=== PATIENT | male | born 1980 | race Caucasian/White ===

== ENCOUNTER 2021-01-11 09:10 | Inpatient (IN) | payer BC ==
[~2021-01-11] VITALS: Ht 182.9 cm; Wt 73.1 kg
[2021-01-11] MEDS ORDERED: IV NORMAL SALINE 1000ML BAG 1,000 ML IV ONE ×2 (09:45→10:30)
[2021-01-11] MEDS ORDERED: PIPERACILLIN/TAZOBACTAM 3.375 GM in IV NORMAL SALINE 50ML 50 ML IV ONE (09:45)
[2021-01-11] MEDS ORDERED: methylPREDNISolone SOD SUCC PF 125 MG/2 ML VIAL. IV ONE (09:45)
[2021-01-11] MEDS ORDERED: ALBUTEROL SULFATE 2.5 MG/3 ML NEBU. CONT NEB ONE (09:45)
--- NOTE | 2021-01-11 09:47 | PHYS DOC ---
General Adult EDM: Chief Complaint: MULTIPLE COMPLAINTS HPI: HPI: Patient is a 40 year old male who presents with cough, generalized fatigue, shortness of breath, midsternal intermittent chest pain, fever, lack of appetite, nausea over the last week. Patient went to urgent care this morning and was only 76% on room air. Upon arrival to the ED we put 6 L of oxygen on him and he was 82%. Patient states he does not feel really short of breath but he does have some short of breath. At this time he rates his pain a 6 out of 10. Speaks in full clear sentences. States he was not vaccinated. Currently afebrile. Denies any past medical history. States he does not smoke. Is a full code. (RADHA KRUGER APRN) Review of Systems: Review of Systems: Constitutional: + fever or chills. [] Eyes: Denies change in visual acuity. [] HENT: Denies nasal congestion or sore throat. [] Respiratory: +cough or +shortness of breath. [] Cardiovascular: +chest pain or denies edema. [] GI: Denies abdominal pain, +nausea, denies vomiting, bloody stools or diarrhea. [] : Denies dysuria. [] Musculoskeletal: Denies back pain or joint pain. +Generalized fatigue [] Integument: Denies rash. [] Neurologic: + headache, denies focal weakness or sensory changes. [] Endocrine: Denies polyuria or polydipsia. [] Lymphatic: Denies swollen glands. [] Psychiatric: Denies depression or anxiety. [] (RADHA KRUGER APRN) Heart Score: C/O Chest Pain: Yes HEART Score for Chest Pain: HEART Score for Chest Pain Response (Comments) Value History Slighlty/Non-Suspicious 0 ECG Normal 0 Age < 45 0 Risk Factors No Risk Factors 0 Troponin < Normal Limit 0 Total 0 Risk Factors: Risk Factors: DM, Current or recent (<one month) smoker, HTN, HLP, family history of CAD, obesity. Risk Scores: Score 0 - 3: 2.5% MACE over next 6 weeks - Discharge Home Score 4 - 6: 20.3% MACE over next 6 weeks - Admit for Clinical Observation Score 7 - 10: 72.7% MACE over next 6 weeks - Early Invasive Strategies (RADHA KRUGER APRN) Current Medications: Current Medications Medications (Trade) Dose Ordered Sig/Dutch Start Time Stop Time Status Last Admin Dose Admin Albuterol Sulfate (Ventolin Neb Soln) 10 mg 1X ONCE 01/11/21 09:45 01/11/21 09:46 Methylprednisolone Sodium Succinate (SOLU-Medrol 125MG VIAL) 125 mg 1X ONCE 01/11/21 09:45 01/11/21 09:46 Piperacillin Sod/ Tazobactam Sod 3.375 gm/Sodium Chloride 50 ml @ 100 mls/hr 1X ONCE 01/11/21 09:45 01/11/21 10:14 Sodium Chloride 1,000 ml @ 1,000 mls/hr 1X ONCE 01/11/21 09:45 01/11/21 10:44 (RADHA KRUGER APRN) Allergies: Allergies: Allergies Coded Allergies Type Severity Reaction Last Updated Verified No Known Drug Allergies 01/11/21 No (RADHA KRUGER APRN) Physical Exam: PE: Constitutional: Well developed, well nourished, no acute distress, non-toxic appearance. [] HENT: Normocephalic, atraumatic, bilateral external ears normal, oropharynx moist, no oral exudates, nose normal. [] Eyes: PERRLA, EOMI, conjunctiva normal, no discharge. [] Neck: Normal range of motion, no tenderness, supple, no stridor. [] Cardiovascular:Heart rate regular rhythm, no murmur [] Lungs & Thorax: Bilateral upper breath sounds diminished and lower with coarse sounds to auscultation [] Abdomen: Bowel sounds normal, soft, no tenderness, no masses, no pulsatile masses. [] Skin: Warm, dry, no erythema, no rash. Pale[] Back: No tenderness, no CVA tenderness. [] Extremities: No tenderness, no cyanosis, no clubbing, ROM intact, no edema. [] Neurologic: Alert and oriented X 3, normal motor function, normal sensory function, no focal deficits noted. [] Psychologic: Affect normal, judgement normal, mood normal. [] (RADHA KRUGER APRN) EKG: EK and read by Dr. Dockery is sinus tachycardia and no STEMI (RADHA KRUGER APRN) Radiology/Procedures: Radiology/Procedures: [] Impression: [facility] [address] [facility] [place] [address] IMAGING REPORT Signed PATIENT: MARY HARDING ACCOUNT: [id number] : 1980 LOCATION: ER AGE: 40 SEX: M EXAM STATUS: REG ER ORD. PHYSICIAN: RADHA KRUGER APRN REASON: chest pain, low O2 PROCEDURE: PORTABLE CHEST 1V XR CHEST 1V History: Reason: chest pain, low O2 / Spl. Instructions: / History: Comparison: None. Findings: Multifocal ill-defined opacities bilaterally. Left lower lung peripheral wedge- shaped opacity. Slight prominence of the left hilum compared to the right may relate to enlarged pulmonary vasculature. No pleural effusion. No pneumothorax. Elevation of the left hemidiaphragm. Normal heart size. Impression: 1. Multifocal ill-defined opacities bilaterally, concerning for pneumonia including viral pneumonia. 2. Left lower lobe peripheral wedge-shaped opacity, may relate to above- mentioned pneumonia. If concern for pulmonary embolism and pulmonary infarct, CT angiogram can further assess. Electronically signed by: Sid Presley DO (01/11/2021 10:12 AM) [id number] DICTATED and SIGNED BY: SID PRESELY DO DATE: 01/11/21 [id number] [facility] [address] [facility] [place] [address] IMAGING REPORT Signed PATIENT: MARY HARDING ACCOUNT: [id number] : 1980 LOCATION: ED HOLD AGE: 40 SEX: M EXAM STATUS: ADM IN ORD. PHYSICIAN: RADHA KRUGER APRN REASON: abnormal chest xray PROCEDURE: CT ANGIOGRAPHY CHEST Examination: CT angiography chest with IV contrast HISTORY: History of abnormal chest x-ray COMPARISON: None available TECHNIQUE: Axial CT angiographic images of chest were performed with IV contrast. Coronal and sagittal 3-D MIP reformats are performed Exposure: One or more of the following individualized dose reduction techniques were utilized for this examination: 1. Automated exposure control 2. Adjustment of the mA and/or kV according to patient size 3. Use of iterative reconstruction technique FINDINGS: The central airways are patent. Heart size grossly appears unremarkable. The caliber of the aorta grossly appears unremarkable. There is no evidence of filling defect identified in the main pulmonary arterial trunk and right and left main pulmonary arteries. The evaluation of distal branches of the pulmonary arteries is limited. There are numerous groundglass focal consolidation and airspace opacities identified throughout the bilateral lungs diffusely likely infiltrates or covid /viral pneumonia. Mild elevated left hemidiaphragm. The visualized liver, spleen, adrenals grossly appears unremarkable. No evidence of lytic bony destructive lesion. IMPRESSION: 1. No evidence of central pulmonary embolism. The evaluation of distal branches of the pulmonary arteries is limited. 2. Numerous groundglass focal consolidation and airspace opacities identified throughout the bilateral lungs diffusely likely infiltrates or covid /viral pneumonia. Follow-up to resolution. Electronically signed by: Lester Zabala MD (01/11/2021 12:07 PM) [id number] DICTATED and SIGNED BY: LESTER ZABALA MD DATE: 01/11/21 [id number] (RADHA KRUGER APRN) Course & Med Decision Making: Course & Med Decision Making Pertinent Labs and Imaging studies reviewed. (See chart for details) See HPI. Patient has generalized diminished lungs bilaterally with intermittent coarse sounds. He is tachycardic at 119. I have called respiratory and they are here for breathing treatment and to start BiPAP. Skin is pale warm and dry. Alert and oriented x4. Speaks in full clear sentences. []COVID-19 CRITERIA: The patient was evaluated during the global COVID-19 pandemic, and that diagnosis was suspected/considered upon their initial presentation. Their evaluation, treatment and testing was consistent with curre nt guidelines for patients who present with complaints or symptoms that may be related to COVID-19. Patient is getting very anxious with the BiPAP on. Patient is 96% with a BiPAP on. Patient knows that if he cannot tolerate the BiPAP then he may need to be intubated. Patient also knows that either he will get better on the BiPAP or he will not and intubation is still a possibility. Patient agrees to intubation if needed. Patient is getting 2 L of normal saline, Zosyn, Solu-Medrol and I ordered breathing treatments. Patient admitted to hospitalist. I have ordered a CT for his chest. (RADHA KRUGER APRN) Course & Med Decision Making Took care of patient in conjunction with nurse practitioner Radha. Patient presents to the emergency room with respiratory failure. Upon arrival patient was significantly hypoxic. Patient was tried on a nonrebreather and remained hypoxic in the 80s. Patient was placed on BiPAP. He did have significant improvement. Patient does not have significant respiratory distress on exam. Presentation is most consistent with novel coronavirus 19. Patient is unvaccinated. He initially was having a difficult time tolerating the BiPAP. Patient was given Ativan for this. I have had a long discussion with the patient that he will need to wear the BiPAP machine and will likely need it for the next 24 to 48 hours. We have discussed that if he is unable to wear this then the next step is to place him on a ventilator. Patient states understanding and states he will try to wear the BiPAP mask. X-ray shows diffuse infiltrates with concern about a wedge infarct. CT angio will be done. CT angio does not show a pulmonary embolism or pulmonary infarct. Patient will be admitted to the ICU. (BG DOCKERY MD) Dragon Disclaimer: Vaccibody Disclaimer: This electronic medical record was generated, in whole or in part, using a voice recognition dictation system. (RADHA KRUGER APRN) COVID-19 Patient Risks: Age 65 or older: No Sign of co-morbidity: No Exp to person + for COVID: No Exp to PUI: No Travel from affected area: No Lower respiratory symptoms: Yes Fever: No Other: No (RADHA KRUGER APRN) PPE Use: Full PPE with N95 mask or PAPR: Yes (RADHA KRUGER APRN) Critical Care Time Critical Care: Authorized and Performed by: Bg Dockery MD Total critical care time: approximately 45 minutes Due to a high probability of clinically significant, life threatening deterio ration, the patient required my highest level of preparedness to intervene emergently and I personally spent this critical care time directly and personally managing the patient. This critical care time included obtaining a history; examining the patient; pulse oximetry; ventilator management if necessary; ordering and review of studies; arranging urgent treatment with development of a management plan; evaluation of patient's response to treatment; frequent reassessment; discussion with patient/family; and, discussions with other providers. This critical care time was performed to assess and manage the high probability of imminent, life-threatening deterioration that could result in multi-organ failure. It was exclusive of separately billable procedures and treating other patients and teaching time. Please see MDM section and the rest of the note for further information on patient assessment and treatment. (BG DOCKERY MD) Departure Departure Impression: Primary Impression: Pneumonia Qualified Codes: J18.9 - Pneumonia, unspecified organism Additional Impressions: Person under investigation for COVID-19 Hypoxia Disposition: ADMITTED INPATIENT Admitting Physician: PETER (ARDHA KRUGER APRN) Condition: STABLE RADHA KRUGER APRN Jan 11, 2021 09:47 BG DOCKERY MD Jan 11, 2021 14:33
[2021-01-11 10:07] LABS: BASO % 0 % (0-3); EOS % 0 % (0-3); HEMATOCRIT 42.3 % (39.0-53.0); HEMOGLOBIN 14.8 g/dL (13.0-17.5); LYMPH # 0.5 x10^3/uL (1.0-4.8); LYMPH % 14 % (24-48); MEAN CORPUSCULAR HEMOGLOBIN 32 pg (25-35); MEAN CORPUSCULAR HGB CONC 35 g/dL (31-37); MEAN CORPUSCULAR VOLUME 92 fL (79-100); MONO # 0.3 x10^3/uL (0.0-1.1); MONO % 7 % (0-9); NEUT # 3.1 x10^3/uL (1.8-7.7); NEUT % 79 % (31-73); PLATELET COUNT 220 x10^3/uL (140-400); RED CELL DISTRIBUTION WIDTH 12.6 % (11.5-14.5)
[2021-01-11 10:14] LABS: CALCIUM 9.1 mg/dL (8.5-10.1); CREATININE 0.6 mg/dL (0.7-1.3)
--- NOTE | 2021-01-11 10:14 | RAD ---
XR CHEST 1V History: Reason: chest pain, low O2 / Spl. Instructions: / History: Comparison: None. Findings: Multifocal ill-defined opacities bilaterally. Left lower lung peripheral wedge-shaped opacity. Slight prominence of the left hilum compared to the right may relate to enlarged pulmonary vasculature. No pleural effusion. No pneumothorax. Elevation of the left hemidiaphragm. Normal heart size. Impression: 1. Multifocal ill-defined opacities bilaterally, concerning for pneumonia including viral pneumonia. 2. Left lower lobe peripheral wedge-shaped opacity, may relate to above-mentioned pneumonia. If conc shayne for pulmonary embolism and pulmonary infarct, CT angiogram can further assess. Electronically signed by: Sid Pierre DO (01/11/2021 10:12 AM) [id number]
[2021-01-11 10:20] LABS: ALBUMIN 2.7 g/dL (3.4-5.0); ALBUMIN/GLOBULIN RATIO 0.6 (1.0-1.7); TOTAL BILIRUBIN 0.5 mg/dL (0.2-1.0); TOTAL PROTEIN 7.3 g/dL (6.4-8.2)
[2021-01-11 10:21] LABS: POTASSIUM 4.3 mmol/L (3.5-5.1)
--- NOTE | 2021-01-11 10:28 | EKG ---
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
[2021-01-11] MEDS ORDERED: IOHEXOL 350 MG/ML 100 ML VIAL. IV ONE ×2 (10:30→10:45)
[2021-01-11] MEDS ORDERED: CONTRAST GIVEN. MC PRN (10:30)
[2021-01-11] MEDS ORDERED: 0.9 % SODIUM CHLORIDE 10 ML DISP.SYRIN. IV PRN (10:45)
[2021-01-11] MEDS ORDERED: DEXTROSE 50% 25 GM / 50ML DISP.SYRIN. IV PRN (10:45)
[2021-01-11] MEDS ORDERED: ONDANSETRON PF 4 MG/2 ML VIAL. IVP PRN (10:45)
[2021-01-11] MEDS ORDERED: oxyCODONE IR 5 MG TABLET PO PRN (10:45)
[2021-01-11 11:55] LABS: PROTHROMBIN TIME PATIENT 12.2 SEC (11.7-14.0)
[2021-01-11] MEDS: INSULIN LISPRO 300 UNITS/3 ML VIAL. SQ SCH ×2 (12:00→17:26)
--- NOTE | 2021-01-11 12:09 | RAD ---
Examination: CT angiography chest with IV contrast HISTORY: History of abnormal chest x-ray COMPARISON: None available TECHNIQUE: Axial CT angiographic images of chest were performed with IV contrast. Coronal and sagitta l 3-D MIP reformats are performed Exposure: One or more of the following individualized dose reduction techniques were utilized for thi s examination: 1. Automated exposure control 2. Adjustment of the mA and/or kV according to patient size 3. Use of iterative reconstruction technique FINDINGS: The central airways are patent. Heart size grossly appears unremarkable. The caliber of the aorta vidal ssly appears unremarkable. There is no evidence of filling defect identified in the main pulmonary ar terial trunk and right and left main pulmonary arteries. The evaluation of distal branches of the pul monary arteries is limited. There are numerous groundglass focal consolidation and airspace opacities identified throughout the bilateral lungs diffusely likely infiltrates or covid /viral pneumonia. Mi ld elevated left hemidiaphragm. The visualized liver, spleen, adrenals grossly appears unremarkable. No evidence of lytic bony destructive lesion. IMPRESSION: 1. No evidence of central pulmonary embolism. The evaluation of distal branches of the pulmonary art eries is limited. 2. Numerous groundglass focal consolidation and airspace opacities identified throughout the bilater al lungs diffusely likely infiltrates or covid /viral pneumonia. Follow-up to resolution. Electronically signed by: Lester Cooley MD (01/11/2021 12:07 PM) [id number]
[2021-01-11 12:54] LABS: BASE EXCESS COOX -3 mmol/L (-3-3); HCO3 COOX 21 mmol/L (21-28); METHEMOGLOBIN 0.5 % (0.0-1.9); OXYHEMOGLOBIN 93.1 %; PCO2 COOX 36 mmHg (35-46); PO2 COOX 73 mmHg (75-108); SAT O2 COOX 94 % (92-99)
[2021-01-11 14:14] LABS: BILIRUBIN,URINE NEGATIVE (NEG); CLARITY,URINE CLEAR; COLOR,URINE YELLOW; NITRITE,URINE NEGATIVE (NEG); PH,URINE 5.5 (<5.0-8.0); PROTEIN,URINE 30 mg/dL (NEG-TRACE); UROBILINOGEN,URINE 0.2 mg/dL (0.2 mg/dL)
[2021-01-11 14:23] LABS: BACTERIA,URINE 0 /HPF (0-FEW); RBC,URINE 0 /HPF (0-2); WBC,URINE 0 /HPF (0-4)
[2021-01-11] MEDS: IV NORMAL SALINE 1000ML BAG 1,000 ML IV SCH ×2 (14:25→17:25)
--- NOTE | 2021-01-11 14:40 | PDOC1 ---
History and Physical Date of Service: DOS: DATE: 01/11/21 TIME: 14:25 Chief Complaint: Problems: (1) Pneumonia due to COVID-19 virus (2) Hypoxia (3) Pneumonia Chief Complain: Shortness of breath, cough, fatigue, decreased appetite History of Present Illness: HPI: Patient is a 40-year-old male without any reported past medical history presented to the emergency room today from urgent care where he was found to have an oxygen saturation of 76% on room air there. Patient went to urgent care because over the past week he had been having a cough, overall fatigue and weakness, dyspnea with exertion, intermittent chest pain, fevers, decreased p.o. intake. Patient denied any sick contacts. He is not a smoker. He did not receive the Covid vaccine. Upon arrival to the emergency room he was placed on 6 L of oxygen and saturations increased to 82%. Nonrebreather was tried however this did not really increase his oxygen saturations and by the time I went to evaluate him he was on continuous BiPAP with saturations in the low 90s. Patient admitting to ICU due to concern for respiratory status given Covid infection and possible need for mechanical ventilation. When evaluated in the emergency room patient was able to gesture that he was feeling somewhat better however was still having shortness of breath and cough. He was also reporting headache. Otherwise no major complaints. Past Medical/Surgical History: PMH/PSH: Patient denies any past medical history Allergies: Allergies: Coded Allergies: No Known Drug Allergies (Unverified , 01/11/21) Family History: Family History: Unknown Social History: Social History: Denies alcohol tobacco and drug use Current Medications: Current Medications Current Medications Methylprednisolone Sodium Succinate (SOLU-Medrol 125MG VIAL) 125 mg 1X ONCE IV Last administered on 01/11/21at 09:56; Start 01/11/21 at 09:45; Stop 01/11/21 at 09:46; Status DC Albuterol Sulfate (Ventolin Neb Soln) 10 mg 1X ONCE CONT NEB ; Start 01/11/21 at 09:45; Stop 01/11/21 at 09:46; Status DC Piperacillin Sod/ Tazobactam Sod 3.375 gm/Sodium Chloride 50 ml @ 100 mls/hr 1X ONCE IV Last administered on 01/11/21at 09:56; Start 01/11/21 at 09:45; Stop 01/11/21 at 10:14; Status DC Sodium Chloride 1,000 ml @ 1,000 mls/hr 1X ONCE IV Last administered on 01/11/21at 09:56; Start 01/11/21 at 09:45; Stop 01/11/21 at 10:44; Status DC Lorazepam (Ativan Inj) 1 mg 1X ONCE IVP Last administered on 01/11/21at 10:32; Start 01/11/21 at 10:15; Stop 01/11/21 at 10:19; Status DC Sodium Chloride 1,000 ml @ 1,000 mls/hr 1X ONCE IV Last administered on 01/11/21at 10:32; Start 01/11/21 at 10:30; Stop 01/11/21 at 11:29; Status DC Iohexol (Omnipaque 350 Mg/ml) 100 ml 1X ONCE IV Last administered on 01/11/21at 10:30; Start 01/11/21 at 10:30; Stop 01/11/21 at 10:31; Status DC Info (CONTRAST GIVEN -- Rx MONITORING) 1 each PRN DAILY PRN MC SEE COMMENTS; Start 01/11/21 at 10:30; Stop 01/13/21 at 10:29 Oxycodone HCl (Roxicodone) 5 mg PRN Q3HRS PRN PO BREAKTHRU PAIN; Start 01/11/21 at 10:45 Lorazepam (Ativan Inj) 0.5 mg PRN Q6HRS PRN IVP ANXIETY / AGITATION; Start 01/11/21 at 10:45 Ondansetron HCl (Zofran) 4 mg PRN Q6HRS PRN IVP NAUSEA/VOMITING; Start 01/11/21 at 10:45 Famotidine (Pepcid) 20 mg BID PO ; Start 01/11/21 at 21:00 Info (Icu Electrolyte Protocol) 1 ea DAILY MC ; Start 01/12/21 at 09:00 Enoxaparin Sodium (Lovenox 40mg Syringe) 40 mg Q24H SQ ; Start 01/11/21 at 16:00 Sodium Chloride (Normal Saline Flush) 3 ml QSHIFT PRN IV AFTER MEDS AND BLOOD DRAWS; Start 01/11/21 at 10:45 Sodium Chloride 1,000 ml @ 125 mls/hr Q8H IV ; Start 01/11/21 at 10:45 Oxycodone/ Acetaminophen (Percocet 5/325) 1 tab PRN Q4HRS PRN PO PAIN, 1ST CHOICE; Start 01/11/21 at 10:45 Morphine Sulfate (Morphine Sulfate) 1 mg PRN Q1HR PRN IV PAIN; Start 01/11/21 at 10:45 Senna/Docusate Sodium (Senna Plus) 1 tab BID PO ; Start 01/11/21 at 21:00 Insulin Human Lispro (HumaLOG) 0-7 UNITS TIDWMEALS SQ ; Start 01/11/21 at 12:00 Dextrose (Dextrose 50%-Water Syringe) 12.5 gm PRN Q15MIN PRN IV SEE COMMENTS; Start 01/11/21 at 10:45 Iohexol (Omnipaque 350 Mg/ml) 90 ml 1X ONCE IV ; Start 01/11/21 at 10:45; Stop 01/11/21 at 10:46; Status DC Dexamethasone Sodium Phosphate (Decadron) 6 mg DAILY IVP ; Start 01/12/21 at 09:00; Stop 01/22/21 at 08:59 ROS: Review of Systems Review of System Negative unless in HPI Physical Exam: Vital Signs: Vital Signs Date Time Temp Pulse Resp B/P (MAP) Pulse Ox O2 Delivery O2 Flow Rate FiO2 01/11/21 11:18 95 BiPAP/CPAP 01/11/21 09:19 97.5 116 22 149/89 97.5 Physcial Exam: GEN: On BiPAP, appears anxious, alert and oriented however HEENT: Normal cephalic, atraumatic, external auditory canals are patent EYES: Extraocular muscles are intact MUSCULOSKELETAL: Well developed , well nourished, good range of motion ENDOCRINE: No thyromegaly was palpated LYMPHATICS: No cervical chain or axillary nodes were noted HEMATOPOIETIC: No bruising NECK: Supple, no JVD, no thyromegaly was noted LUNGS: Coarse breath sounds present throughout; on BiPAP with respirations somewhat labored HEART: RRR, S1, S2 present. Peripheral pulses intact, no obvious murmurs noted ABDOMEN: Soft, nontender. Positive bowel sounds, no organomegaly, normal bowel sounds EXTREMITIES: Without clubbing, cyanosis, or edema. Pedal pulses intact. NEUROLOGIC: Normal speech and tone. A&O x 3, moves all extremities, no obvious focal deficits PSYCHIATRIC: Normal affect, normal mood. Stable SKIN: No ulcerations or rashes, good skin turgor, no jaundice VASCULAR: Good capillary refill, neurovascular bundle appears to be intact Labs: Labs: Laboratory Tests Test 01/11/21 09:31 01/11/21 09:41 01/11/21 09:47 01/11/21 11:41 O2 Saturation 94 % (92-99) Arterial Blood pH 7.39 (7.35-7.45) Arterial Blood pCO2 at Patient Temp 36 mmHg (35-46) Arterial Blood pO2 at Patient Temp 73 mmHg (75-108) Arterial Blood HCO3 21 mmol/L (21-28) Arterial Blood Base Excess -3 mmol/L (-3-3) Oxyhemoglobin 93.1 % Methemoglobin 0.5 % (0.0-1.9) Carbon Monoxide, Quantitative 0.0 % (0.0-1.9) FiO2 80% bipap SARS-CoV-2 RNA (THERESE) Positive (Negative) White Blood Count 4.0 x10^3/uL (4.0-11.0) Red Blood Count 4.60 x10^6/uL (4.30-5.70) Hemoglobin 14.8 g/dL (13.0-17.5) Hematocrit 42.3 % (39.0-53.0) Mean Corpuscular Volume 92 fL (79-100) Mean Corpuscular Hemoglobin 32 pg (25-35) Mean Corpuscular Hemoglobin Concent 35 g/dL (31-37) Red Cell Distribution Width 12.6 % (11.5-14.5) Platelet Count 220 x10^3/uL (140-400) Neutrophils (%) (Auto) 79 % (31-73) Lymphocytes (%) (Auto) 14 % (24-48) Monocytes (%) (Auto) 7 % (0-9) Eosinophils (%) (Auto) 0 % (0-3) Basophils (%) (Auto) 0 % (0-3) Neutrophils # (Auto) 3.1 x10^3/uL (1.8-7.7) Lymphocytes # (Auto) 0.5 x10^3/uL (1.0-4.8) Monocytes # (Auto) 0.3 x10^3/uL (0.0-1.1) Eosinophils # (Auto) 0.0 x10^3/uL (0.0-0.7) Basophils # (Auto) 0.0 x10^3/uL (0.0-0.2) Sodium Level 129 mmol/L (136-145) Potassium Level 4.3 mmol/L (3.5-5.1) Chloride Level 93 mmol/L (98-107) Carbon Dioxide Level 23 mmol/L (21-32) Anion Gap 13 (6-14) Blood Urea Nitrogen 9 mg/dL (8-26) Creatinine 0.6 mg/dL (0.7-1.3) Estimated GFR (Cockcroft-Gault) 150.0 BUN/Creatinine Ratio 15 (6-20) Glucose Level 394 mg/dL (70-99) Lactic Acid Level 1.2 mmol/L (0.4-2.0) Calcium Level 9.1 mg/dL (8.5-10.1) Total Bilirubin 0.5 mg/dL (0.2-1.0) Aspartate Amino Transf (AST/SGOT) 44 U/L (15-37) Alanine Aminotransferase (ALT/SGPT) 34 U/L (16-63) Alkaline Phosphatase 75 U/L (46-116) Troponin I Quantitative < 0.017 ng/mL (0.000-0.055) KX-Wae-E-Type Natriuretic Peptide 42 pg/mL (0-124) Total Protein 7.3 g/dL (6.4-8.2) Albumin 2.7 g/dL (3.4-5.0) Albumin/Globulin Ratio 0.6 (1.0-1.7) Prothrombin Time 12.2 SEC (11.7-14.0) Prothromb Time International Ratio 0.9 (0.8-1.1) Test 01/11/21 13:45 Urine Collection Type Void Urine Color Yellow Urine Clarity Clear Urine pH 5.5 (<5.0-8.0) Urine Specific [place] >=1.030 (1.000-1.030) Urine Protein 30 mg/dL (NEG-TRACE) Urine Glucose (UA) >=1000 mg/dL (NEG) Urine Ketones (Stick) >=80 mg/dL (NEG) Urine Blood Negative (NEG) Urine Nitrite Negative (NEG) Urine Bilirubin Negative (NEG) Urine Urobilinogen Dipstick 0.2 mg/dL (0.2 mg/dL) Urine Leukocyte Esterase Negative (NEG) Urine RBC 0 /HPF (0-2) Urine WBC 0 /HPF (0-4) Urine Squamous Epithelial Cells Occ /LPF Urine Bacteria 0 /HPF (0-FEW) Laboratory Tests Test 01/11/21 09:31 01/11/21 09:41 01/11/21 09:47 01/11/21 11:41 O2 Saturation 94 % (92-99) Arterial Blood pH 7.39 (7.35-7.45) Arterial Blood pCO2 at Patient Temp 36 mmHg (35-46) Arterial Blood pO2 at Patient Temp 73 mmHg (75-108) Arterial Blood HCO3 21 mmol/L (21-28) Arterial Blood Base Excess -3 mmol/L (-3-3) Oxyhemoglobin 93.1 % Methemoglobin 0.5 % (0.0-1.9) Carbon Monoxide, Quantitative 0.0 % (0.0-1.9) FiO2 80% bipap SARS-CoV-2 RNA (THERESE) Positive (Negative) White Blood Count 4.0 x10^3/uL (4.0-11.0) Red Blood Count 4.60 x10^6/uL (4.30-5.70) Hemoglobin 14.8 g/dL (13.0-17.5) Hematocrit 42.3 % (39.0-53.0) Mean Corpuscular Volume 92 fL (79-100) Mean Corpuscular Hemoglobin 32 pg (25-35) Mean Corpuscular Hemoglobin Concent 35 g/dL (31-37) Red Cell Distribution Width 12.6 % (11.5-14.5) Platelet Count 220 x10^3/uL (140-400) Neutrophils (%) (Auto) 79 % (31-73) Lymphocytes (%) (Auto) 14 % (24-48) Monocytes (%) (Auto) 7 % (0-9) Eosinophils (%) (Auto) 0 % (0-3) Basophils (%) (Auto) 0 % (0-3) Neutrophils # (Auto) 3.1 x10^3/uL (1.8-7.7) Lymphocytes # (Auto) 0.5 x10^3/uL (1.0-4.8) Monocytes # (Auto) 0.3 x10^3/uL (0.0-1.1) Eosinophils # (Auto) 0.0 x10^3/uL (0.0-0.7) Basophils # (Auto) 0.0 x10^3/uL (0.0-0.2) Sodium Level 129 mmol/L (136-145) Potassium Level 4.3 mmol/L (3.5-5.1) Chloride Level 93 mmol/L (98-107) Carbon Dioxide Level 23 mmol/L (21-32) Anion Gap 13 (6-14) Blood Urea Nitrogen 9 mg/dL (8-26) Creatinine 0.6 mg/dL (0.7-1.3) Estimated GFR (Cockcroft-Gault) 150.0 BUN/Creatinine Ratio 15 (6-20) Glucose Level 394 mg/dL (70-99) Lactic Acid Level 1.2 mmol/L (0.4-2.0) Calcium Level 9.1 mg/dL (8.5-10.1) Total Bilirubin 0.5 mg/dL (0.2-1.0) Aspartate Amino Transf (AST/SGOT) 44 U/L (15-37) Alanine Aminotransferase (ALT/SGPT) 34 U/L (16-63) Alkaline Phosphatase 75 U/L (46-116) Troponin I Quantitative < 0.017 ng/mL (0.000-0.055) HH-Aml-R-Type Natriuretic Peptide 42 pg/mL (0-124) Total Protein 7.3 g/dL (6.4-8.2) Albumin 2.7 g/dL (3.4-5.0) Albumin/Globulin Ratio 0.6 (1.0-1.7) Prothrombin Time 12.2 SEC (11.7-14.0) Prothromb Time International Ratio 0.9 (0.8-1.1) Test 01/11/21 13:45 Urine Collection Type Void Urine Color Yellow Urine Clarity Clear Urine pH 5.5 (<5.0-8.0) Urine Specific [place] >=1.030 (1.000-1.030) Urine Protein 30 mg/dL (NEG-TRACE) Urine Glucose (UA) >=1000 mg/dL (NEG) Urine Ketones (Stick) >=80 mg/dL (NEG) Urine Blood Negative (NEG) Urine Nitrite Negative (NEG) Urine Bilirubin Negative (NEG) Urine Urobilinogen Dipstick 0.2 mg/dL (0.2 mg/dL) Urine Leukocyte Esterase Negative (NEG) Urine RBC 0 /HPF (0-2) Urine WBC 0 /HPF (0-4) Urine Squamous Epithelial Cells Occ /LPF Urine Bacteria 0 /HPF (0-FEW) Assessment/Plan Assessment/Plan Patient is a 40-year-old white male presenting today with his breath cough fatigue found to be positive for COVID-19. Acute hypoxic respiratory failure secondary to COVID-19 pneumonia, hyperglycemia -1 week history of worsening respiratory status and fatigue -Did not receive Covid vaccine -Presents to urgent care this morning where her O2 sats found to be 75%; was sent to the emergency room here -Covid test here positive -Imaging including CTA of the chest consistent with Covid pneumonia -Inhaler as needed; started on Decadron and remdesivir -We will await pulmonary input regarding antibiotics -Patient hyperglycemic on admission will give sliding scale insulin; patient denies a history of type 2 diabetes -No other home meds required to be restarted Justifications for Admission Other Justification ELIJAH BECERRA MD Jan 11, 2021 14:40
[2021-01-11] MEDS ORDERED: REMDESIVIR LOAD in IV NORMAL SALINE 250ML TV IV ONE (15:00)
[2021-01-11] MEDS: ENOXAPARIN 40 MG/0.4 ML SYRINGE. SQ SCH (17:25)
--- NOTE | 2021-01-11 17:48 | NUR ---
The patient, MARY HARDING, 40 y/o, M admitted by ELIJAH BECERRA MD, was given written information regarding hospital policies, unit procedures and contact persons. Valuables were checked and left in patient room.
[2021-01-11 17:58] VITALS: BP 130/77
[2021-01-11 18:33] VITALS: BP 128/81
--- NOTE | 2021-01-11 18:36 | NUR ---
Dr. Jose notified of admission and consult. Reviewed current orders and no new orders at this time.
[2021-01-11 20:00] VITALS: BP 126/80
[2021-01-11] MEDS: SENNOSIDES/DOCUSATE 8.6/50MG TABLET. PO SCH (20:48)
[2021-01-11] MEDS: FAMOTIDINE 20 MG TABLET. PO SCH (20:48)
[2021-01-11 21:00] VITALS: BP 122/81
[2021-01-11 22:00] VITALS: BP 134/84
[2021-01-11 23:00] VITALS: BP 124/72
[2021-01-12] VITALS (24 sets, daily range): BP systolic 108–142; BP diastolic 62–84
[2021-01-12] MEDS: IV NORMAL SALINE 1000ML BAG 1,000 ML IV SCH ×3 (00:32→21:04)
--- NOTE | 2021-01-12 01:04 | CONS ---
DATE OF CONSULTATION: 01/11/2021 PULMONARY CONSULTATION ATTENDING PHYSICIAN: Fan Katz MD. REASON FOR CONSULTATION: Respiratory failure, COVID-19 pneumonia. HISTORY OF PRESENT ILLNESS: The patient is a 40-year-old male with a BMI of 21.9. He has no history of tobacco use and no chronic medical conditions. The patient was brought into urgent care when he was found to have an oxygen saturation of 76% on room air. He has not been feeling well over the last 1 week. He has a cough, overall fatigue, and weakness and dyspnea with exertion along with intermittent chest pain and fevers. The patient states he was exposed to someone who was COVID positive. The patient did not receive COVID vaccine. In the Emergency Room, he was initially placed on 6 liters of oxygen and saturations increased up to 82%. He was placed on a nonrebreather mask and then eventually switched to Vapotherm. Currently, he is on Vapotherm at 80% FIO2 and 25 liters. He appears to be comfortable, in no obvious respiratory distress. I did consultation via telemedicine. PAST MEDICAL HISTORY: Significant for no chronic medical conditions. PAST SURGICAL HISTORY: No recent surgeries. ALLERGIES: None. SOCIAL HISTORY: Denies tobacco or alcohol use. IMMUNIZATION STATUS: He is unvaccinated with COVID. MEDICATIONS: Reviewed as listed in the MRAD. REVIEW OF SYSTEMS: As discussed in my history of present illness, otherwise noncontributory. PHYSICAL EXAMINATION: VITAL SIGNS: Reviewed. His pulse ox is 91-92% on current Vapotherm at 80% FIO2. He is afebrile. GENERAL: He does not appear to be in any obvious respiratory distress while talking to me via telemedicine. EXTREMITIES: No leg edema. No paradoxical breathing. LABORATORY DATA: Reviewed. His ABG showed a pH of 7.39, pCO2 of 36 and a pO2 of 73 on 80% FiO2 with BiPAP. His BUN 9, creatinine 0.6. Albumin 2.7. COVID is positive. INR 0.9. White cell count 4.0, hemoglobin 14.8 and platelets 220. IMPRESSION: 1. Acute hypoxic respiratory failure secondary to COVID-19 pneumonia, acute lung injury in early acute respiratory distress syndrome. 2. Abnormal chest x-ray with diffuse bilateral infiltrates consistent with COVID-19 pneumonia. 3. CTA chest with no evidence of pulmonary embolism. However, there are bilateral infiltrates consistent with viral pneumonia. 4. No significant tobacco history. 5. Unvaccinated for COVID-19. RECOMMENDATIONS: 1. Continue with present Vapotherm at 80% FIO2 and 25 liters. 2. We will follow ABGs and oxygen saturations and make further decisions. 3. Remdesivir is initiated. 4. Continue dexamethasone. 5. Continue nebulizer. 6. Lovenox for DVT prophylaxis. 7. Discussed with the patient and RN. Critical care time 30 minutes including review of the chart, imaging studies, and decision making. ISAIAS DR: Aki TID: [id number]
[2021-01-12] MEDS: STERILE WATER for RESP 1,000 ML BAG. INH PRN ×2 (04:13→16:39)
[2021-01-12] MEDS: SENNOSIDES/DOCUSATE 8.6/50MG TABLET. PO SCH ×2 (08:02→21:04)
[2021-01-12] MEDS: FAMOTIDINE 20 MG TABLET. PO SCH ×2 (08:02→21:04)
[2021-01-12] MEDS: DEXAMETHASONE SOD PHOS 4 MG/ML VIAL IVP SCH (08:05)
[2021-01-12] MEDS: INSULIN LISPRO 300 UNITS/3 ML VIAL. SQ SCH ×4 (08:16→18:18)
[2021-01-12] MEDS: ELECTROLYTE (ICU) PROTOCOL. MC SCH (08:20)
--- NOTE | 2021-01-12 11:18 | PDOC ---
PULMONARY PROGRESS NOTES DATE: 01/12/21 TIME: 11:14 Subjective Patient remains on Vapotherm 25 L and 80% Afebrile NO Overnight concerns from nursing Vitals Vital Signs Date Time Temp Pulse Resp B/P (MAP) Pulse Ox O2 Delivery O2 Flow Rate FiO2 01/12/21 11:03 92 VAPOTHERM 25.0 01/12/21 10:00 101 33 136/81 (99) 01/12/21 08:00 98.4 98.4 Comments Patient seen during ID pandemic, visual exam performed Regular rate and rhythm No distress No obvious rash or edema NO Accessory muscle use General: Alert, Oriented X4 Labs Laboratory Tests Test 01/11/21 09:31 01/11/21 09:41 01/11/21 09:47 01/11/21 11:41 O2 Saturation 94 % (92-99) Arterial Blood pH 7.39 (7.35-7.45) Arterial Blood pCO2 at Patient Temp 36 mmHg (35-46) Arterial Blood pO2 at Patient Temp 73 mmHg (75-108) Arterial Blood HCO3 21 mmol/L (21-28) Arterial Blood Base Excess -3 mmol/L (-3-3) Oxyhemoglobin 93.1 % Methemoglobin 0.5 % (0.0-1.9) Carbon Monoxide, Quantitative 0.0 % (0.0-1.9) FiO2 80% bipap SARS-CoV-2 RNA (THERESE) Positive (Negative) White Blood Count 4.0 x10^3/uL (4.0-11.0) Red Blood Count 4.60 x10^6/uL (4.30-5.70) Hemoglobin 14.8 g/dL (13.0-17.5) Hematocrit 42.3 % (39.0-53.0) Mean Corpuscular Volume 92 fL (79-100) Mean Corpuscular Hemoglobin 32 pg (25-35) Mean Corpuscular Hemoglobin Concent 35 g/dL (31-37) Red Cell Distribution Width 12.6 % (11.5-14.5) Platelet Count 220 x10^3/uL (140-400) Neutrophils (%) (Auto) 79 % (31-73) Lymphocytes (%) (Auto) 14 % (24-48) Monocytes (%) (Auto) 7 % (0-9) Eosinophils (%) (Auto) 0 % (0-3) Basophils (%) (Auto) 0 % (0-3) Neutrophils # (Auto) 3.1 x10^3/uL (1.8-7.7) Lymphocytes # (Auto) 0.5 x10^3/uL (1.0-4.8) Monocytes # (Auto) 0.3 x10^3/uL (0.0-1.1) Eosinophils # (Auto) 0.0 x10^3/uL (0.0-0.7) Basophils # (Auto) 0.0 x10^3/uL (0.0-0.2) Sodium Level 129 mmol/L (136-145) Potassium Level 4.3 mmol/L (3.5-5.1) Chloride Level 93 mmol/L (98-107) Carbon Dioxide Level 23 mmol/L (21-32) Anion Gap 13 (6-14) Blood Urea Nitrogen 9 mg/dL (8-26) Creatinine 0.6 mg/dL (0.7-1.3) Estimated GFR (Cockcroft-Gault) 150.0 BUN/Creatinine Ratio 15 (6-20) Glucose Level 394 mg/dL (70-99) Lactic Acid Level 1.2 mmol/L (0.4-2.0) Calcium Level 9.1 mg/dL (8.5-10.1) Total Bilirubin 0.5 mg/dL (0.2-1.0) Aspartate Amino Transf (AST/SGOT) 44 U/L (15-37) Alanine Aminotransferase (ALT/SGPT) 34 U/L (16-63) Alkaline Phosphatase 75 U/L (46-116) Troponin I Quantitative < 0.017 ng/mL (0.000-0.055) BL-Cfk-C-Type Natriuretic Peptide 42 pg/mL (0-124) Total Protein 7.3 g/dL (6.4-8.2) Albumin 2.7 g/dL (3.4-5.0) Albumin/Globulin Ratio 0.6 (1.0-1.7) Prothrombin Time 12.2 SEC (11.7-14.0) Prothromb Time International Ratio 0.9 (0.8-1.1) Test 01/11/21 13:45 01/11/21 14:25 01/11/21 17:00 Urine Collection Type Void Urine Color Yellow Urine Clarity Clear Urine pH 5.5 (<5.0-8.0) Urine Specific [place] >=1.030 (1.000-1.030) Urine Protein 30 mg/dL (NEG-TRACE) Urine Glucose (UA) >=1000 mg/dL (NEG) Urine Ketones (Stick) >=80 mg/dL (NEG) Urine Blood Negative (NEG) Urine Nitrite Negative (NEG) Urine Bilirubin Negative (NEG) Urine Urobilinogen Dipstick 0.2 mg/dL (0.2 mg/dL) Urine Leukocyte Esterase Negative (NEG) Urine RBC 0 /HPF (0-2) Urine WBC 0 /HPF (0-4) Urine Squamous Epithelial Cells Occ /LPF Urine Bacteria 0 /HPF (0-FEW) Glucose (Fingerstick) 330 mg/dL (70-99) 342 mg/dL (70-99) Laboratory Tests Test 01/11/21 11:41 01/11/21 13:45 01/11/21 14:25 01/11/21 17:00 Prothrombin Time 12.2 SEC (11.7-14.0) Prothromb Time International Ratio 0.9 (0.8-1.1) Urine Collection Type Void Urine Color Yellow Urine Clarity Clear Urine pH 5.5 (<5.0-8.0) Urine Specific [place] >=1.030 (1.000-1.030) Urine Protein 30 mg/dL (NEG-TRACE) Urine Glucose (UA) >=1000 mg/dL (NEG) Urine Ketones (Stick) >=80 mg/dL (NEG) Urine Blood Negative (NEG) Urine Nitrite Negative (NEG) Urine Bilirubin Negative (NEG) Urine Urobilinogen Dipstick 0.2 mg/dL (0.2 mg/dL) Urine Leukocyte Esterase Negative (NEG) Urine RBC 0 /HPF (0-2) Urine WBC 0 /HPF (0-4) Urine Squamous Epithelial Cells Occ /LPF Urine Bacteria 0 /HPF (0-FEW) Glucose (Fingerstick) 330 mg/dL (70-99) 342 mg/dL (70-99) Medications Active Scripts Medications Dose Route/Sig Max Daily Dose Days Date Category No Known Medications Prior To Admisstion (Info) Each 1 Each 1X 01/11/21 Reported Comments CTA chest IMPRESSION: 1. No evidence of central pulmonary embolism. The evaluation of distal branches of the pulmonary arteries is limited. 2. Numerous groundglass focal consolidation and airspace opacities identified throughout the bilateral lungs diffusely likely infiltrates or covid /viral pneumonia. Follow-up to resolution. Impression . IMPRESSION: 1. Acute hypoxic respiratory failure secondary to COVID-19 pneumonia, acute lung injury in early acute respiratory distress syndrome. 2. Abnormal chest x-ray with diffuse bilateral infiltrates consistent with COVID-19 pneumonia. 3. CTA chest with no evidence of pulmonary embolism. However, there are bilateral infiltrates consistent with viral pneumonia. 4. No significant tobacco history. 5. Unvaccinated for COVID-19. Plan . Updated 01/12/2021 Continue supplemental oxygen to keep oxygen saturations greater than 92%, wes nicholely on Vapotherm 25 L and 80% Continue current remdesivir Continue dexamethasone Monitor off antibiotics MDI Encourage p.o. intake DVT/GI prophylaxis Discussed with RN and RT RECOMMENDATIONS: 01/11/21 1. Continue with present Vapotherm at 80% FIO2 and 25 liters. 2. We will follow ABGs and oxygen saturations and make further decisions. 3. Remdesivir is initiated. 4. Continue dexamethasone. 5. Continue nebulizer. 6. Lovenox for DVT prophylaxis. 7. Discussed with the patient and RN. NIYAH DUARTE MD Jan 12, 2021 11:18
[2021-01-12] MEDS: IPRATROPIUM/ALBUTEROL 20/100mcg/INH INHALER. INH SCH ×4 (12:25→20:00)
[2021-01-12] MEDS: REMDESIVIR 100mg in NORMAL SALINE 250ML X 4 DAYS IV SCH (15:07)
--- NOTE | 2021-01-12 15:07 | NUR ---
SS following for discharge planning. SS reviewed pt chart and discussed with pt RN. Pt is from home and is currently on Vapotherm. COVID19 positive. Pt on IV Remdesivir and IV steroids. SS will continue to follow for discharge planning.
[2021-01-12] MEDS: ENOXAPARIN 40 MG/0.4 ML SYRINGE. SQ SCH (15:38)
[2021-01-12] MEDS ORDERED: DEXTROSE 50% 25 GM / 50ML DISP.SYRIN. IV PRN (17:45)
[2021-01-12] MEDS ORDERED: IV DEXTROSE 5% 250 ML BAG. IV PRN (17:45)
--- NOTE | 2021-01-12 17:50 | PDOC ---
[facility] PROGRESS NOTE Date of Service DOS: DATE: 01/12/21 TIME: 17:47 Chief Complaint Chief Complaint Acute hypoxic respiratory failure secondary to COVID-19 pneumonia hyperglycemia -1 week history of worsening respiratory status and fatigue -Did not receive Covid vaccine -Presents to urgent care this morning where her O2 sats found to be 75%; was sent to the emergency room here -Covid test here positive -Imaging including CTA of the chest consistent with Covid pneumonia -Inhaler as needed; started on Decadron and remdesivir -We will await pulmonary input regarding antibiotics -Patient hyperglycemic on admission will give sliding scale insulin; patient denies a history of type 2 diabetes -No other home meds required to be restarted History of Present Illness History of Present Illness Patient is a 40-year-old male without any reported past medical history presented to the emergency room today from urgent care where he was found to have an oxygen saturation of 76% on room air there. Patient went to urgent care because over the past week he had been having a cough, overall fatigue and weakness, dyspnea with exertion, intermittent chest pain, fevers, decreased p.o. intake. Patient denied any sick contacts. He is not a smoker. He did not receive the Covid vaccine. Upon arrival to the emergency room he was placed on 6 L of oxygen and saturations increased to 82%. Nonrebreather was tried however this did not really increase his oxygen saturations and by the time I went to evaluate him he was on continuous BiPAP with saturations in the low 90s. Patient admitting to ICU due to concern for respiratory status given Covid infection and possible need for mechanical ventilation. When evaluated in the emergency room patient was able to gesture that he was feeling somewhat better however was still having shortness of breath and cough. He was also reporting headache. Otherwise no major complaints. 01/12/2021: Patient seen in ICU. Afebrile, tachycardic, breathing on 25 L Vapotherm. No complaints today; concerned about medical leave from job. Concern for some persistent hypoglycemia; will adjust insulin and check hemoglobin A1c. Continue treatment with remdesivir and steroids. 30 minutes critical care time spent reviewing charts, doing labs, urine imaging, and discussion with RN. Vitals/I&O Vitals/I&O: Vital Signs Date Time Temp Pulse Resp B/P (MAP) Pulse Ox O2 Delivery O2 Flow Rate FiO2 01/12/21 17:05 101 45 142/83 (102) 93 Vapotherm 25.0 01/12/21 16:00 98.1 98.1 I & O 01/11/21 01/11/21 01/12/21 15:00 23:00 07:00 Intake Total 2050 ml 180 ml 1504 ml Output Total 701 ml 800 ml Balance 2050 ml -521 ml 704 ml Physical Exam General: Alert, Oriented X3, Cooperative, No acute distress Heart: Other (Tachycardic) Lungs: Other (No increased work of breathing) Abdomen: No hepatosplenomegaly, No masses Extremities: No clubbing, No cyanosis Skin: No rashes, No breakdown Labs Labs: Laboratory Tests Test 01/12/21 12:24 01/12/21 16:17 Glucose (Fingerstick) 273 mg/dL (70-99) 312 mg/dL (70-99) Assessment and Plan Assessmemt and Plan Problems Medical Problems: (1) Hypoxia Status: Acute (2) Person under investigation for COVID-19 Status: Acute (3) Pneumonia Status: Acute Comment Review of Relevant I have reviewed the following items teresa (where applicable) has been applied. Medications: Current Medications Medications (Trade) Dose Ordered Sig/Dutch Route PRN Reason Start Time Stop Time Status Last Admin Dose Admin Famotidine (Pepcid) 20 mg BID PO 01/11/21 21:00 01/12/21 08:02 Senna/Docusate Sodium (Senna Plus) 1 tab BID PO 01/11/21 21:00 01/12/21 08:02 Dexamethasone Sodium Phosphate (Decadron) 6 mg DAILY IVP 01/12/21 09:00 01/22/21 08:59 01/12/21 08:05 Remdesivir 100 mg/ Sodium Chloride 230 ml @ 460 mls/hr Q24H IV 01/12/21 15:00 01/15/21 15:29 01/12/21 15:07 Justifications for Admission Other Justification JAMEL ZAMORANO MD Jan 12, 2021 17:50
[2021-01-12] MEDS: INSULIN GLARGINE SYRINGE. SQ SCH (21:05)
[2021-01-13] VITALS (24 sets, daily range): BP systolic 107–159; BP diastolic 68–87
[2021-01-13] MEDS: guaiFENesin ORAL 200 MG/10 ML LIQUID. PO PRN ×2 (00:32→21:25)
[2021-01-13] MEDS: IV NORMAL SALINE 1000ML BAG 1,000 ML IV SCH ×3 (04:10→21:27)
[2021-01-13 04:52] LABS: BASO % 1 % (0-3); EOS % 0 % (0-3); HEMATOCRIT 39.7 % (39.0-53.0); HEMOGLOBIN 13.5 g/dL (13.0-17.5); LYMPH # 0.6 x10^3/uL (1.0-4.8); LYMPH % 9 % (24-48); MEAN CORPUSCULAR HEMOGLOBIN 32 pg (25-35); MEAN CORPUSCULAR HGB CONC 34 g/dL (31-37); MEAN CORPUSCULAR VOLUME 93 fL (79-100); MONO # 0.6 x10^3/uL (0.0-1.1); MONO % 9 % (0-9); NEUT # 5.8 x10^3/uL (1.8-7.7); NEUT % 82 % (31-73); PLATELET COUNT 238 x10^3/uL (140-400); RED BLOOD COUNT 4.27 x10^6/uL (4.30-5.70); RED CELL DISTRIBUTION WIDTH 12.6 % (11.5-14.5)
[2021-01-13 05:04] LABS: CREATININE 0.5 mg/dL (0.7-1.3); GFR 185.1; POTASSIUM 3.6 mmol/L (3.5-5.1)
--- NOTE | 2021-01-13 07:29 | PDOC ---
[facility] PROGRESS NOTE Date of Service DOS: DATE: 01/13/21 TIME: 07:22 Chief Complaint Chief Complaint Acute hypoxic respiratory failure secondary to COVID-19 pneumonia hyperglycemia Severe malnutrition -1 week history of worsening respiratory status and fatigue -Did not receive Covid vaccine -Presents to urgent care this morning where her O2 sats found to be 75%; was sent to the emergency room here -Covid test here positive -Imaging including CTA of the chest consistent with Covid pneumonia -Inhaler as needed; started on Decadron and remdesivir -We will await pulmonary input regarding antibiotics -Patient hyperglycemic on admission will give sliding scale insulin; patient den ies a history of type 2 diabetes -No other home meds required to be restarted History of Present Illness History of Present Illness Patient is a 40-year-old male without any reported past medical history presented to the emergency room today from urgent care where he was found to have an oxygen saturation of 76% on room air there. Patient went to urgent care because over the past week he had been having a cough, overall fatigue and weakness, dyspnea with exertion, intermittent chest pain, fevers, decreased p.o. intake. Patient denied any sick contacts. He is not a smoker. He did not receive the Covid vaccine. Upon arrival to the emergency room he was placed on 6 L of oxygen and saturations increased to 82%. Nonrebreather was tried however this did not really increase his oxygen saturations and by the time I went to evaluate him he was on continuous BiPAP with saturations in the low 90s. Patient admitting to ICU due to concern for respiratory status given Covid infection and possible need for mechanical ventilation. When evaluated in the emergency room patient was able to gesture that he was feeling somewhat better however was still having shortness of breath and cough. He was also reporting headache. Otherwise no major complaints. 01/13/2021: Afebrile, breathing on Vapotherm at 30 L, FiO2 90%. No acute events overnight, patient has no complaints. Dry cough noted on exam. Continue treatment with remdesivir day 3/5. Continue steroids and supportive care. Still with some hyperglycemia; hemoglobin A1c pending. 30 minutes critical care time spent reviewing labs, reviewing charts, reviewing imaging, discussion with RN. 01/12/2021: Patient seen in ICU. Afebrile, tachycardic, breathing on 25 L Vapotherm. No complaints today; concerned about medical leave from job. Concern for some persistent hypoglycemia; will adjust insulin and check hemoglobin A1c. Continue treatment with remdesivir and steroids. 30 minutes critical care time spent reviewing charts, doing labs, urine imaging, and discussion with RN. Vitals/I&O Vitals/I&O: Vital Signs Date Time Temp Pulse Resp B/P (MAP) Pulse Ox O2 Delivery O2 Flow Rate FiO2 01/13/21 06:00 91 34 127/82 (97) 91 Vapotherm 30.0 01/13/21 04:00 97.7 97.7 I & O 01/12/21 01/12/21 01/13/21 15:00 23:00 07:00 Intake Total 120 ml 1924 ml 2172 ml Output Total 550 ml 1451 ml 476 ml Balance -430 ml 473 ml 1696 ml Physical Exam General: Alert, Oriented X3, Cooperative, No acute distress Heart: Other (Tachycardic) Lungs: Other (Decreased breath sounds, no increased work of breathing) Abdomen: No hepatosplenomegaly, No masses Extremities: No clubbing, No cyanosis Skin: No rashes, No breakdown Labs Labs: Laboratory Tests Test 01/12/21 12:24 01/12/21 16:17 01/13/21 04:45 Glucose (Fingerstick) 273 mg/dL (70-99) 312 mg/dL (70-99) White Blood Count 7.0 x10^3/uL (4.0-11.0) Red Blood Count 4.27 x10^6/uL (4.30-5.70) Hemoglobin 13.5 g/dL (13.0-17.5) Hematocrit 39.7 % (39.0-53.0) Mean Corpuscular Volume 93 fL (79-100) Mean Corpuscular Hemoglobin 32 pg (25-35) Mean Corpuscular Hemoglobin Concent 34 g/dL (31-37) Red Cell Distribution Width 12.6 % (11.5-14.5) Platelet Count 238 x10^3/uL (140-400) Neutrophils (%) (Auto) 82 % (31-73) Lymphocytes (%) (Auto) 9 % (24-48) Monocytes (%) (Auto) 9 % (0-9) Eosinophils (%) (Auto) 0 % (0-3) Basophils (%) (Auto) 1 % (0-3) Neutrophils # (Auto) 5.8 x10^3/uL (1.8-7.7) Lymphocytes # (Auto) 0.6 x10^3/uL (1.0-4.8) Monocytes # (Auto) 0.6 x10^3/uL (0.0-1.1) Eosinophils # (Auto) 0.0 x10^3/uL (0.0-0.7) Basophils # (Auto) 0.0 x10^3/uL (0.0-0.2) Sodium Level 139 mmol/L (136-145) Potassium Level 3.6 mmol/L (3.5-5.1) Chloride Level 105 mmol/L (98-107) Carbon Dioxide Level 24 mmol/L (21-32) Anion Gap 10 (6-14) Blood Urea Nitrogen 13 mg/dL (8-26) Creatinine 0.5 mg/dL (0.7-1.3) Estimated GFR (Cockcroft-Gault) 185.1 Glucose Level 301 mg/dL (70-99) Calcium Level 8.0 mg/dL (8.5-10.1) Assessment and Plan Assessmemt and Plan Problems Medical Problems: (1) Hypoxia Status: Acute (2) Person under investigation for COVID-19 Status: Acute (3) Pneumonia Status: Acute Comment Review of Relevant I have reviewed the following items teresa (where applicable) has been applied. Medications: Current Medications Medications (Trade) Dose Ordered Sig/Dutch Route PRN Reason Start Time Stop Time Status Last Admin Dose Admin Dexamethasone Sodium Phosphate (Decadron) 6 mg DAILY IVP 01/12/21 09:00 01/22/21 08:59 01/12/21 08:05 Remdesivir 100 mg/ Sodium Chloride 230 ml @ 460 mls/hr Q24H IV 01/12/21 15:00 01/15/21 15:29 01/12/21 15:07 Insulin Glargine (Lantus Syringe) 15 unit QHS SQ 01/12/21 21:00 01/12/21 21:05 Insulin Human Lispro (HumaLOG) 5 units TIDWMEALS SQ 01/12/21 18:00 01/12/21 18:18 Guaifenesin (Robitussin) 200 mg PRN Q4HRS PRN PO COUGH 01/13/21 00:30 01/13/21 00:32 Justifications for Admission Other Justification JAMEL ZAMORANO MD Jan 13, 2021 07:29
[2021-01-13] MEDS: IPRATROPIUM/ALBUTEROL 20/100mcg/INH INHALER. INH SCH ×4 (08:00→19:41)
[2021-01-13] MEDS: ASCORBIC ACID 500 MG TABLET PO SCH ×2 (08:27→19:41)
[2021-01-13] MEDS: FAMOTIDINE 20 MG TABLET. PO SCH ×2 (08:27→19:41)
[2021-01-13] MEDS: SENNOSIDES/DOCUSATE 8.6/50MG TABLET. PO SCH ×2 (08:27→19:41)
[2021-01-13] MEDS: DEXAMETHASONE SOD PHOS 4 MG/ML VIAL IVP SCH (08:27)
[2021-01-13] MEDS: INSULIN LISPRO 300 UNITS/3 ML VIAL. SQ SCH ×6 (08:40→17:38)
[2021-01-13] MEDS: STERILE WATER for RESP 1,000 ML BAG. INH PRN (08:43)
[2021-01-13] MEDS: ELECTROLYTE (ICU) PROTOCOL. MC SCH (09:00)
--- NOTE | 2021-01-13 10:09 | PDOC ---
PULMONARY PROGRESS NOTES DATE: 01/13/21 TIME: 10:07 Subjective Patient's oxygen requirement has increased. Currently on Vapotherm at 90% FiO2 and 30 L flow. In addition he also has a nonrebreather mask. Does not appear to be in any obvious respiratory distress. Vitals Vital Signs Date Time Temp Pulse Resp B/P (MAP) Pulse Ox O2 Delivery O2 Flow Rate FiO2 01/13/21 08:24 94 VAPOTHERM 30.0 01/13/21 06:00 91 34 127/82 (97) 01/13/21 04:00 97.7 97.7 Comments Patient seen during pandemic, visual exam performed Regular rate and rhythm No distress No obvious rash or edema NO Accessory muscle use General: Alert, Oriented X4 Labs Laboratory Tests Test 01/11/21 11:41 01/11/21 13:45 01/11/21 14:25 01/11/21 17:00 Prothrombin Time 12.2 SEC (11.7-14.0) Prothromb Time International Ratio 0.9 (0.8-1.1) Urine Collection Type Void Urine Color Yellow Urine Clarity Clear Urine pH 5.5 (<5.0-8.0) Urine Specific [place] >=1.030 (1.000-1.030) Urine Protein 30 mg/dL (NEG-TRACE) Urine Glucose (UA) >=1000 mg/dL (NEG) Urine Ketones (Stick) >=80 mg/dL (NEG) Urine Blood Negative (NEG) Urine Nitrite Negative (NEG) Urine Bilirubin Negative (NEG) Urine Urobilinogen Dipstick 0.2 mg/dL (0.2 mg/dL) Urine Leukocyte Esterase Negative (NEG) Urine RBC 0 /HPF (0-2) Urine WBC 0 /HPF (0-4) Urine Squamous Epithelial Cells Occ /LPF Urine Bacteria 0 /HPF (0-FEW) Glucose (Fingerstick) 330 mg/dL (70-99) 342 mg/dL (70-99) Test 01/12/21 12:24 01/12/21 16:17 01/13/21 04:45 01/13/21 08:33 Glucose (Fingerstick) 273 mg/dL (70-99) 312 mg/dL (70-99) 290 mg/dL (70-99) White Blood Count 7.0 x10^3/uL (4.0-11.0) Red Blood Count 4.27 x10^6/uL (4.30-5.70) Hemoglobin 13.5 g/dL (13.0-17.5) Hematocrit 39.7 % (39.0-53.0) Mean Corpuscular Volume 93 fL (79-100) Mean Corpuscular Hemoglobin 32 pg (25-35) Mean Corpuscular Hemoglobin Concent 34 g/dL (31-37) Red Cell Distribution Width 12.6 % (11.5-14.5) Platelet Count 238 x10^3/uL (140-400) Neutrophils (%) (Auto) 82 % (31-73) Lymphocytes (%) (Auto) 9 % (24-48) Monocytes (%) (Auto) 9 % (0-9) Eosinophils (%) (Auto) 0 % (0-3) Basophils (%) (Auto) 1 % (0-3) Neutrophils # (Auto) 5.8 x10^3/uL (1.8-7.7) Lymphocytes # (Auto) 0.6 x10^3/uL (1.0-4.8) Monocytes # (Auto) 0.6 x10^3/uL (0.0-1.1) Eosinophils # (Auto) 0.0 x10^3/uL (0.0-0.7) Basophils # (Auto) 0.0 x10^3/uL (0.0-0.2) Sodium Level 139 mmol/L (136-145) Potassium Level 3.6 mmol/L (3.5-5.1) Chloride Level 105 mmol/L (98-107) Carbon Dioxide Level 24 mmol/L (21-32) Anion Gap 10 (6-14) Blood Urea Nitrogen 13 mg/dL (8-26) Creatinine 0.5 mg/dL (0.7-1.3) Estimated GFR (Cockcroft-Gault) 185.1 Glucose Level 301 mg/dL (70-99) Calcium Level 8.0 mg/dL (8.5-10.1) Laboratory Tests Test 01/12/21 12:24 01/12/21 16:17 01/13/21 04:45 01/13/21 08:33 Glucose (Fingerstick) 273 mg/dL (70-99) 312 mg/dL (70-99) 290 mg/dL (70-99) White Blood Count 7.0 x10^3/uL (4.0-11.0) Red Blood Count 4.27 x10^6/uL (4.30-5.70) Hemoglobin 13.5 g/dL (13.0-17.5) Hematocrit 39.7 % (39.0-53.0) Mean Corpuscular Volume 93 fL (79-100) Mean Corpuscular Hemoglobin 32 pg (25-35) Mean Corpuscular Hemoglobin Concent 34 g/dL (31-37) Red Cell Distribution Width 12.6 % (11.5-14.5) Platelet Count 238 x10^3/uL (140-400) Neutrophils (%) (Auto) 82 % (31-73) Lymphocytes (%) (Auto) 9 % (24-48) Monocytes (%) (Auto) 9 % (0-9) Eosinophils (%) (Auto) 0 % (0-3) Basophils (%) (Auto) 1 % (0-3) Neutrophils # (Auto) 5.8 x10^3/uL (1.8-7.7) Lymphocytes # (Auto) 0.6 x10^3/uL (1.0-4.8) Monocytes # (Auto) 0.6 x10^3/uL (0.0-1.1) Eosinophils # (Auto) 0.0 x10^3/uL (0.0-0.7) Basophils # (Auto) 0.0 x10^3/uL (0.0-0.2) Sodium Level 139 mmol/L (136-145) Potassium Level 3.6 mmol/L (3.5-5.1) Chloride Level 105 mmol/L (98-107) Carbon Dioxide Level 24 mmol/L (21-32) Anion Gap 10 (6-14) Blood Urea Nitrogen 13 mg/dL (8-26) Creatinine 0.5 mg/dL (0.7-1.3) Estimated GFR (Cockcroft-Gault) 185.1 Glucose Level 301 mg/dL (70-99) Calcium Level 8.0 mg/dL (8.5-10.1) Medications Active Scripts Medications Dose Route/Sig Max Daily Dose Days Date Category No Known Medications Prior To Admisstion (Info) Each 1 Each 1X 01/11/21 Reported Comments CTA chest IMPRESSION: 1. No evidence of central pulmonary embolism. The evaluation of distal branches of the pulmonary arteries is limited. 2. Numerous groundglass focal consolidation and airspace opacities identified throughout the bilateral lungs diffusely likely infiltrates or covid /viral p neumonia. Follow-up to resolution. Impression . IMPRESSION: 1. Acute hypoxic respiratory failure secondary to COVID-19 pneumonia, acute lung injury /acute respiratory distress syndrome. Oxygen requirement has increased. Currently on 100% nonrebreather mask in addition to the Vapotherm at 90% FiO2 and 30 L flow. We will monitor closely his respiratory status. 2. Abnormal chest x-ray with diffuse bilateral infiltrates consistent with COVID-19 pneumonia. 3. CTA chest with no evidence of pulmonary embolism. However, there are bilateral infiltrates consistent with viral pneumonia. 4. No significant tobacco history. 5. Unvaccinated for COVID-19. Plan . Updated 01/13/2021 Continue with present Vapotherm at 90% FiO2 and 30 L flow. Continue with additional nonrebreather mask. He appears to be comfortable. No paradoxical breathing. We will watch his respiratory status closely. At this point he does not need to be intubated. Continue current remdesivir Continue dexamethasone Monitor off antibiotics MDI Encourage p.o. intake DVT/GI prophylaxis Discussed with RN and RT Critical care time 30 minutes Updated 01/12/2021 Continue supplemental oxygen to keep oxygen saturations greater than 92%, currently on Vapotherm 25 L and 80% Continue current remdesivir Continue dexamethasone Monitor off antibiotics MDI Encourage p.o. intake DVT/GI prophylaxis Discussed with RN and RT RECOMMENDATIONS: 01/11/21 1. Continue with present Vapotherm at 80% FIO2 and 25 liters. 2. We will follow ABGs and oxygen saturations and make further decisions. 3. Remdesivir is initiated. 4. Continue dexamethasone. 5. Continue nebulizer. 6. Lovenox for DVT prophylaxis. 7. Discussed with the patient and RN. NIYAH DUARTE MD Jan 13, 2021 10:09
[2021-01-13] MEDS: REMDESIVIR 100mg in NORMAL SALINE 250ML X 4 DAYS IV SCH (15:37)
--- NOTE | 2021-01-13 16:00 | NUR ---
SS following up with discharge planning. SS reviewed pt chart and discussed with pt RN. Pt is currently on Vapotherm. COVID19 positive. Pt on IV Remdesivir and IV Decadron. SS will continue to follow for discharge planning.
[2021-01-13] MEDS: ENOXAPARIN 40 MG/0.4 ML SYRINGE. SQ SCH (17:22)
[2021-01-13] MEDS: INSULIN GLARGINE SYRINGE. SQ SCH (19:42)
[2021-01-14] VITALS (24 sets, daily range): BP systolic 115–141; BP diastolic 69–95
--- NOTE | 2021-01-14 06:39 | PDOC ---
[facility] [facility] PROGRESS NOTE Date of Service DOS: DATE: 01/14/21 TIME: 06:33 Chief Complaint Chief Complaint Acute hypoxic respiratory failure secondary to COVID-19 pneumonia hyperglycemia Severe malnutrition -1 week history of worsening respiratory status and fatigue -Did not receive Covid vaccine -Presents to urgent care this morning where her O2 sats found to be 75%; was sent to the emergency room here -Covid test here positive -Imaging including CTA of the chest consistent with Covid pneumonia -Inhaler as needed; started on Decadron and remdesivir -We will await pulmonary input regarding antibiotics -Patient hyperglycemic on admission will give sliding scale insulin; patient den ies a history of type 2 diabetes -No other home meds required to be restarted History of Present Illness History of Present Illness Patient is a 40-year-old male without any reported past medical history presented to the emergency room today from urgent care where he was found to have an oxygen saturation of 76% on room air there. Patient went to urgent care because over the past week he had been having a cough, overall fatigue and weakness, dyspnea with exertion, intermittent chest pain, fevers, decreased p.o. intake. Patient denied any sick contacts. He is not a smoker. He did not receive the Covid vaccine. Upon arrival to the emergency room he was placed on 6 L of oxygen and saturations increased to 82%. Nonrebreather was tried however this did not really increase his oxygen saturations and by the time I went to evaluate him he was on continuous BiPAP with saturations in the low 90s. Patient admitting to ICU due to concern for respiratory status given Covid infection and possible need for mechanical ventilation. When evaluated in the emergency room patient was able to gesture that he was feeling somewhat better however was still having shortness of breath and cough. He was also reporting headache. Otherwise no major complaints. 01/14/2021: Afebrile, tachypneic. Breathing 40 L Vapotherm. Still with nonproductive cough. CBG 332 overnight. Will increase basal/prandial insulin. Continue treatment with remdesivir day 4/5. Continue steroids and supportive care. Hemoglobin A1c pending. Critical care time 30 minutes spent reviewing labs, reviewing transcranial imaging, discussion with RN. 01/13/2021: Afebrile, breathing on Vapotherm at 30 L, FiO2 90%. No acute events overnight, patient has no complaints. Dry cough noted on exam. Continue treatment with remdesivir day 3/5. Continue steroids and supportive care. Still with some hyperglycemia; hemoglobin A1c pending. 30 minutes critical care time spent reviewing labs, reviewing charts, reviewing imaging, discussion with RN. 01/12/2021: Patient seen in ICU. Afebrile, tachycardic, breathing on 25 L Vapotherm. No complaints today; concerned about medical leave from job. Concern for some persistent hypoglycemia; will adjust insulin and check hemoglobin A1c. Continue treatment with remdesivir and steroids. 30 minutes critical care time spent reviewing charts, doing labs, urine imaging, and discussion with RN. Vitals/I&O Vitals/I&O: Vital Signs Date Time Temp Pulse Resp B/P (MAP) Pulse Ox O2 Delivery O2 Flow Rate FiO2 01/14/21 06:00 86 30 135/86 (102) 92 Vapotherm 40.0 01/14/21 04:00 98.9 98.9 I & O 01/13/21 01/13/21 01/14/21 15:00 23:00 07:00 Intake Total 480 ml 1838 ml 400 ml Output Total 1150 ml 800 ml 375 ml Balance -670 ml 1038 ml 25 ml Physical Exam General: Alert, Oriented X3, Cooperative, No acute distress Heart: Other (Tachycardic) Lungs: Clear Abdomen: No hepatosplenomegaly, No masses Extremities: No clubbing, No cyanosis Skin: No rashes, No breakdown Labs Labs: Laboratory Tests Test 01/13/21 08:33 01/13/21 11:52 01/13/21 17:26 01/13/21 19:28 Glucose (Fingerstick) 290 mg/dL (70-99) 265 mg/dL (70-99) 227 mg/dL (70-99) 332 mg/dL (70-99) Assessment and Plan Assessmemt and Plan Problems Medical Problems: (1) Hypoxia Status: Acute (2) Person under investigation for COVID-19 Status: Acute (3) Pneumonia Status: Acute Comment Review of Relevant I have reviewed the following items teresa (where applicable) has been applied. Medications: Current Medications Medications (Trade) Dose Ordered Sig/Dutch Route PRN Reason Start Time Stop Time Status Last Admin Dose Admin Ascorbic Acid (Vitamin C) 500 mg BID PO 01/13/21 09:00 01/27/21 08:59 01/13/21 19:41 Justifications for Admission Other Justification JAMEL ZAMORANO MD Jan 14, 2021 06:39
[2021-01-14] MEDS: IV NORMAL SALINE 1000ML BAG 1,000 ML IV SCH ×3 (07:07→23:44)
[2021-01-14] MEDS: IPRATROPIUM/ALBUTEROL 20/100mcg/INH INHALER. INH SCH ×4 (08:00→20:00)
[2021-01-14 08:30] LABS: BASE EXCESS ABG 1 mmol/L (-3-3); HCO3 ABG 23 mmol/L (21-28); PCO2 ABG 29 mmHg (35-46); PO2 ABG 79 mmHg (75-108); SAT O2 ABG 96 % (92-99)
[2021-01-14] MEDS: ASCORBIC ACID 500 MG TABLET PO SCH ×2 (08:36→21:01)
[2021-01-14] MEDS: FAMOTIDINE 20 MG TABLET. PO SCH ×2 (08:36→21:02)
[2021-01-14] MEDS: MORPHINE SULFATE 2 MG/ML INJ. IV PRN (08:37)
[2021-01-14] MEDS: DEXAMETHASONE SOD PHOS 4 MG/ML VIAL IVP SCH (08:37)
[2021-01-14] MEDS: STERILE WATER for RESP 1,000 ML BAG. INH PRN (08:37)
[2021-01-14] MEDS: INSULIN LISPRO 300 UNITS/3 ML VIAL. SQ SCH ×6 (08:58→17:28)
[2021-01-14] MEDS: SENNOSIDES/DOCUSATE 8.6/50MG TABLET. PO SCH ×2 (08:59→21:02)
[2021-01-14] MEDS: ELECTROLYTE (ICU) PROTOCOL. MC SCH (09:00)
[2021-01-14 09:18] LABS: FIO2 ABG 100
--- NOTE | 2021-01-14 10:46 | PDOC ---
PULMONARY PROGRESS NOTES DATE: 01/14/21 TIME: 10:44 Subjective Patient's oxygen requirement has increased. Currently on Vapotherm at 100% FiO2 and 40 L flow. In addition he also has a nonrebreather mask. Does not appear to be in any obvious respiratory distress. Vitals Vital Signs Date Time Temp Pulse Resp B/P (MAP) Pulse Ox O2 Delivery O2 Flow Rate FiO2 01/14/21 10:00 92 41 129/82 (98) 96 Vapotherm 40.0 01/14/21 08:00 98.6 98.6 Comments Patient seen during pandemic, visual exam performed Regular rate and rhythm No distress No obvious rash or edema NO Accessory muscle use General: Alert, Oriented X4 Labs Laboratory Tests Test 01/12/21 12:24 01/12/21 16:17 01/13/21 04:45 01/13/21 08:33 Glucose (Fingerstick) 273 mg/dL (70-99) 312 mg/dL (70-99) 290 mg/dL (70-99) White Blood Count 7.0 x10^3/uL (4.0-11.0) Red Blood Count 4.27 x10^6/uL (4.30-5.70) Hemoglobin 13.5 g/dL (13.0-17.5) Hematocrit 39.7 % (39.0-53.0) Mean Corpuscular Volume 93 fL (79-100) Mean Corpuscular Hemoglobin 32 pg (25-35) Mean Corpuscular Hemoglobin Concent 34 g/dL (31-37) Red Cell Distribution Width 12.6 % (11.5-14.5) Platelet Count 238 x10^3/uL (140-400) Neutrophils (%) (Auto) 82 % (31-73) Lymphocytes (%) (Auto) 9 % (24-48) Monocytes (%) (Auto) 9 % (0-9) Eosinophils (%) (Auto) 0 % (0-3) Basophils (%) (Auto) 1 % (0-3) Neutrophils # (Auto) 5.8 x10^3/uL (1.8-7.7) Lymphocytes # (Auto) 0.6 x10^3/uL (1.0-4.8) Monocytes # (Auto) 0.6 x10^3/uL (0.0-1.1) Eosinophils # (Auto) 0.0 x10^3/uL (0.0-0.7) Basophils # (Auto) 0.0 x10^3/uL (0.0-0.2) Sodium Level 139 mmol/L (136-145) Potassium Level 3.6 mmol/L (3.5-5.1) Chloride Level 105 mmol/L (98-107) Carbon Dioxide Level 24 mmol/L (21-32) Anion Gap 10 (6-14) Blood Urea Nitrogen 13 mg/dL (8-26) Creatinine 0.5 mg/dL (0.7-1.3) Estimated GFR (Cockcroft-Gault) 185.1 Glucose Level 301 mg/dL (70-99) Calcium Level 8.0 mg/dL (8.5-10.1) Test 01/13/21 11:52 01/13/21 17:26 01/13/21 19:28 01/14/21 08:26 Glucose (Fingerstick) 265 mg/dL (70-99) 227 mg/dL (70-99) 332 mg/dL (70-99) O2 Saturation 96 % (92-99) Arterial Blood pH 7.52 (7.35-7.45) Arterial Blood pCO2 at Patient Temp 29 mmHg (35-46) Arterial Blood pO2 at Patient Temp 79 mmHg (75-108) Arterial Blood HCO3 23 mmol/L (21-28) Arterial Blood Base Excess 1 mmol/L (-3-3) FiO2 100 Test 01/14/21 08:47 Glucose (Fingerstick) 196 mg/dL (70-99) Laboratory Tests Test 01/13/21 11:52 01/13/21 17:26 01/13/21 19:28 01/14/21 08:26 Glucose (Fingerstick) 265 mg/dL (70-99) 227 mg/dL (70-99) 332 mg/dL (70-99) O2 Saturation 96 % (92-99) Arterial Blood pH 7.52 (7.35-7.45) Arterial Blood pCO2 at Patient Temp 29 mmHg (35-46) Arterial Blood pO2 at Patient Temp 79 mmHg (75-108) Arterial Blood HCO3 23 mmol/L (21-28) Arterial Blood Base Excess 1 mmol/L (-3-3) FiO2 100 Test 01/14/21 08:47 Glucose (Fingerstick) 196 mg/dL (70-99) Medications Active Scripts Medications Dose Route/Sig Max Daily Dose Days Date Category No Known Medications Prior To Admisstion (Info) Each 1 Each 1X 01/11/21 Reported Comments CTA chest IMPRESSION: 1. No evidence of central pulmonary embolism. The evaluation of distal branches of the pulmonary arteries is limited. 2. Numerous groundglass focal consolidation and airspace opacities identified throughout the bilateral lungs diffusely likely infiltrates or covid /viral pneumonia. Follow-up to resolution. Impression . IMPRESSION: 1. Acute hypoxic respiratory failure secondary to COVID-19 pneumonia, acute lung injury /acute respiratory distress syndrome. Oxygen requirement has increased. Currently on 100% nonrebreather mask in addition to the Vapotherm at 90% FiO2 and 30 L flow. We will monitor closely his respiratory status. 2. Abnormal chest x-ray with diffuse bilateral infiltrates consistent with COVID-19 pneumonia. 3. CTA chest with no evidence of pulmonary embolism. However, there are bilateral infiltrates consistent with viral pneumonia. 4. No significant tobacco history. 5. Unvaccinated for COVID-19. Plan . Updated 01/14/2021 Continue with present Vapotherm at 90% FiO2 and 30 L flow. Continue with additional nonrebreather mask. He appears to be comfortable. No paradoxical breathing. We will watch his respiratory status closely. At this point he does not need to be intubated. Continue current remdesivir Continue dexamethasone Monitor off antibiotics MDI Encourage p.o. intake DVT/GI prophylaxis Discussed with RN and RT Will monitor respiratory status closely. At this point he does not need intubation. Critical care time 30 minutes Updated 01/13/2021 Continue with present Vapotherm at 90% FiO2 and 30 L flow. Continue with additional nonrebreather mask. He appears to be comfortable. No paradoxical breathing. We will watch his respiratory status closely. At this point he does not need to be intubated. Continue current remdesivir Continue dexamethasone Monitor off antibiotics MDI Encourage p.o. intake DVT/GI prophylaxis Discussed with RN and RT Critical care time 30 minutes Updated 01/12/2021 Continue supplemental oxygen to keep oxygen saturations greater than 92%, currently on Vapotherm 25 L and 80% Continue current remdesivir Continue dexamethasone Monitor off antibiotics MDI Encourage p.o. intake DVT/GI prophylaxis Discussed with RN and RT RECOMMENDATIONS: 7/20/21 1. Continue with present Vapotherm at 80% FIO2 and 25 liters. 2. We will follow ABGs and oxygen saturations and make further decisions. 3. Remdesivir is initiated. 4. Continue dexamethasone. 5. Continue nebulizer. 6. Lovenox for DVT prophylaxis. 7. Discussed with the patient and RN. NIYAH DUARTE MD Jan 14, 2021 10:46
[2021-01-14 12:06] LABS: BASO % 0 % (0-3); EOS % 0 % (0-3); HEMATOCRIT 38.4 % (39.0-53.0); HEMOGLOBIN 13.1 g/dL (13.0-17.5); LYMPH # 0.4 x10^3/uL (1.0-4.8); LYMPH % 5 % (24-48); MEAN CORPUSCULAR HEMOGLOBIN 32 pg (25-35); MEAN CORPUSCULAR HGB CONC 34 g/dL (31-37); MEAN CORPUSCULAR VOLUME 93 fL (79-100); MONO # 0.4 x10^3/uL (0.0-1.1); MONO % 5 % (0-9); NEUT # 7.5 x10^3/uL (1.8-7.7); NEUT % 91 % (31-73); PLATELET COUNT 250 x10^3/uL (140-400); RED BLOOD COUNT 4.12 x10^6/uL (4.30-5.70); RED CELL DISTRIBUTION WIDTH 12.5 % (11.5-14.5); WHITE BLOOD COUNT 8.2 x10^3/uL (4.0-11.0)
[2021-01-14 12:10] LABS: CREATININE 0.5 mg/dL (0.7-1.3); GFR 185.1; POTASSIUM 3.5 mmol/L (3.5-5.1)
[2021-01-14] MEDS ORDERED: POTASSIUM CHLORIDE 20 MEQ TABLET.ER. PO ONE (12:30)
[2021-01-14] MEDS: oxyCODONE/APAP 5/325 1 TAB TABLET PO PRN (12:35)
[2021-01-14 13:06] LABS: % LYMPHS 8 % (24-48); % MONOS 2 % (0-10); % SEGS 90 % (35-66); PLT ESTIMATE ADEQUATE (ADEQUATE)
[2021-01-14] MEDS: REMDESIVIR 100mg in NORMAL SALINE 250ML X 4 DAYS IV SCH (16:02)
[2021-01-14] MEDS: ENOXAPARIN 40 MG/0.4 ML SYRINGE. SQ SCH (17:28)
[2021-01-14] MEDS: guaiFENesin ORAL 200 MG/10 ML LIQUID. PO PRN (21:01)
[2021-01-14] MEDS: INSULIN GLARGINE SYRINGE. SQ SCH (21:21)
--- NOTE | 2021-01-14 22:33 | NUR ---
Patient complaining of feeling hot in the room, thermostat turned down to 65.0, pulled the extra blankets off, left one on patient, temperature checked, 98.1, orally, then patient reports to feel chilly, assisted in helping pt pull blanket up over his shoulders. monitoring.
[2021-01-15] VITALS (23 sets, daily range): BP systolic 107–145; BP diastolic 71–91
[2021-01-15 01:17] LABS: HEMOGLOBIN A1C 13.4 % (4.8-5.6)
[2021-01-15] MEDS: guaiFENesin ORAL 200 MG/10 ML LIQUID. PO PRN ×2 (02:45→22:06)
--- NOTE | 2021-01-15 02:57 | NUR ---
Patient coughing, cough syrup given, but patient pulls his vapotherm cannula and NRB off, pt is strongly instructed to leave them on, that he can cough with the two in place. Pt nods head...'I don't know what happened'. his saturation dropped to 62% quickly. did recover to 99%.
[2021-01-15] MEDS: MORPHINE SULFATE 2 MG/ML INJ. IV PRN (03:07)
--- NOTE | 2021-01-15 03:38 | NUR ---
Patient coughing, dry cough, non-productive, attempting to get patient to relax, as he is diaphoretic, leads right upper arm replaced as off, and displaying rr 160-170's, incorrect, as off and patient is coughing. rr back to 30's to 40's, Monitoring
[2021-01-15 04:27] LABS: BASO % 0 % (0-3); EOS % 0 % (0-3); HEMATOCRIT 39.3 % (39.0-53.0); HEMOGLOBIN 13.6 g/dL (13.0-17.5); LYMPH # 0.7 x10^3/uL (1.0-4.8); LYMPH % 9 % (24-48); MEAN CORPUSCULAR HEMOGLOBIN 32 pg (25-35); MEAN CORPUSCULAR HGB CONC 35 g/dL (31-37); MEAN CORPUSCULAR VOLUME 92 fL (79-100); MONO # 0.5 x10^3/uL (0.0-1.1); MONO % 6 % (0-9); NEUT # 6.4 x10^3/uL (1.8-7.7); NEUT % 85 % (31-73); PLATELET COUNT 242 x10^3/uL (140-400); RED BLOOD COUNT 4.28 x10^6/uL (4.30-5.70); RED CELL DISTRIBUTION WIDTH 12.6 % (11.5-14.5); WHITE BLOOD COUNT 7.5 x10^3/uL (4.0-11.0)
[2021-01-15 04:56] LABS: CREATININE 0.4 mg/dL (0.7-1.3); GFR 239.5
[2021-01-15 05:05] LABS: POTASSIUM 3.5 mmol/L (3.5-5.1)
[2021-01-15] MEDS: IPRATROPIUM/ALBUTEROL 20/100mcg/INH INHALER. INH SCH ×4 (08:00→20:00)
[2021-01-15] MEDS: IV NORMAL SALINE 1000ML BAG 1,000 ML IV SCH (08:26)
--- NOTE | 2021-01-15 08:52 | PDOC ---
[facility] PROGRESS NOTE Date of Service DOS: DATE: 01/15/21 TIME: 08:39 Chief Complaint Chief Complaint Acute hypoxic respiratory failure secondary to COVID-19 pneumonia New DM2 hyperglycemia Severe malnutrition -1 week history of worsening respiratory status and fatigue -Did not receive Covid vaccine -Presents to urgent care this morning where her O2 sats found to be 75%; was sent to the emergency room here -Covid test here positive -Imaging including CTA of the chest consistent with Covid pneumonia -Inhaler as needed; started on Decadron and remdesivir -We will await pulmonary input regarding antibiotics -Patient hyperglycemic on admission will give sliding scale insulin; patient denies a history of type 2 diabetes -No other home meds required to be restarted History of Present Illness History of Present Illness Patient is a 40-year-old male without any reported past medical history presented to the emergency room today from urgent care where he was found to have an oxygen saturation of 76% on room air there. Patient went to urgent care because over the past week he had been having a cough, overall fatigue and weakness, dyspnea with exertion, intermittent chest pain, fevers, decreased p.o. intake. Patient denied any sick contacts. He is not a smoker. He did not receive the Covid vaccine. Upon arrival to the emergency room he was placed on 6 L of oxygen and saturations increased to 82%. Nonrebreather was tried however this did not really increase his oxygen saturations and by the time I went to evaluate him he was on continuous BiPAP with saturations in the low 90s. Patient admitting to ICU due to concern for respiratory status given Covid infection and possible need for mechanical ventilation. When evaluated in the emergency room patient was able to gesture that he was feeling somewhat better however was still having shortness of breath and cough. He was also reporting headache. Otherwise no major complaints. 01/15/2021: Afebrile, tachypnea, breathing Vapotherm 40 L. Reports family history of DM2. Hemoglobin A1c 13.4; DM2 is new diagnosis and he will need to discharge on appropriate medications. Continue treatment with ampicillin, Decadron, antibiotics, regarding supportive care. 01/14/2021: Afebrile, tachypneic. Breathing 40 L Vapotherm. Still with nonproductive cough. CBG 332 overnight. Will increase basal/prandial insulin. Continue treatment with remdesivir day 4/5. Continue steroids and supportive care. Hemoglobin A1c pending. Critical care time 30 minutes spent reviewing labs, reviewing charts, reviewing imaging, discussion with RN. 01/13/2021: Afebrile, breathing on Vapotherm at 30 L, FiO2 90%. No acute events overnight, patient has no complaints. Dry cough noted on exam. Continue treatment with remdesivir day 3/5. Continue steroids and supportive care. Still with some hyperglycemia; hemoglobin A1c pending. 30 minutes critical care time spent reviewing labs, reviewing charts, reviewing imaging, discussion with RN. 01/12/2021: Patient seen in ICU. Afebrile, tachycardic, breathing on 25 L Vapotherm. No complaints today; concerned about medical leave from job. Concern for some persistent hypoglycemia; will adjust insulin and check hemoglobin A1c. Continue treatment with remdesivir and steroids. 30 minutes critical care time spent reviewing charts, doing labs, urine imaging, and discussion with RN. Vitals/I&O Vitals/I&O: Vital Signs Date Time Temp Pulse Resp B/P (MAP) Pulse Ox O2 Delivery O2 Flow Rate FiO2 01/15/21 06:00 74 38 145/88 (107) 100 vapotherm 01/15/21 04:00 98.2 98.2 01/15/21 04:00 40.0 I & O 01/14/21 01/14/21 01/15/21 14:59 22:59 06:59 Intake Total 1080 ml 3002 ml 1300 ml Output Total 350 ml 950 ml Balance 730 ml 2052 ml 1300 ml Physical Exam General: Alert, Oriented X3, Cooperative, No acute distress Heart: Other (Tachycardic) Abdomen: No hepatosplenomegaly, No masses Extremities: No clubbing, No cyanosis Skin: No rashes, No breakdown Labs Labs: Laboratory Tests Test 01/14/21 08:47 01/14/21 11:40 01/14/21 12:21 01/14/21 16:31 Glucose (Fingerstick) 196 mg/dL (70-99) 194 mg/dL (70-99) 206 mg/dL (70-99) White Blood Count 8.2 x10^3/uL (4.0-11.0) Red Blood Count 4.12 x10^6/uL (4.30-5.70) Hemoglobin 13.1 g/dL (13.0-17.5) Hematocrit 38.4 % (39.0-53.0) Mean Corpuscular Volume 93 fL (79-100) Mean Corpuscular Hemoglobin 32 pg (25-35) Mean Corpuscular Hemoglobin Concent 34 g/dL (31-37) Red Cell Distribution Width 12.5 % (11.5-14.5) Platelet Count 250 x10^3/uL (140-400) Neutrophils (%) (Auto) 91 % (31-73) Lymphocytes (%) (Auto) 5 % (24-48) Monocytes (%) (Auto) 5 % (0-9) Eosinophils (%) (Auto) 0 % (0-3) Basophils (%) (Auto) 0 % (0-3) Neutrophils # (Auto) 7.5 x10^3/uL (1.8-7.7) Lymphocytes # (Auto) 0.4 x10^3/uL (1.0-4.8) Monocytes # (Auto) 0.4 x10^3/uL (0.0-1.1) Eosinophils # (Auto) 0.0 x10^3/uL (0.0-0.7) Basophils # (Auto) 0.0 x10^3/uL (0.0-0.2) Segmented Neutrophils % 90 % (35-66) Lymphocytes % 8 % (24-48) Monocytes % 2 % (0-10) Platelet Estimate Adequate (ADEQUATE) Sodium Level 139 mmol/L (136-145) Potassium Level 3.5 mmol/L (3.5-5.1) Chloride Level 104 mmol/L (98-107) Carbon Dioxide Level 28 mmol/L (21-32) Anion Gap 7 (6-14) Blood Urea Nitrogen 10 mg/dL (8-26) Creatinine 0.5 mg/dL (0.7-1.3) Estimated GFR (Cockcroft-Gault) 185.1 Glucose Level 178 mg/dL (70-99) Calcium Level 8.0 mg/dL (8.5-10.1) Test 01/14/21 23:36 01/15/21 04:00 Glucose (Fingerstick) 160 mg/dL (70-99) White Blood Count 7.5 x10^3/uL (4.0-11.0) Red Blood Count 4.28 x10^6/uL (4.30-5.70) Hemoglobin 13.6 g/dL (13.0-17.5) Hematocrit 39.3 % (39.0-53.0) Mean Corpuscular Volume 92 fL (79-100) Mean Corpuscular Hemoglobin 32 pg (25-35) Mean Corpuscular Hemoglobin Concent 35 g/dL (31-37) Red Cell Distribution Width 12.6 % (11.5-14.5) Platelet Count 242 x10^3/uL (140-400) Neutrophils (%) (Auto) 85 % (31-73) Lymphocytes (%) (Auto) 9 % (24-48) Monocytes (%) (Auto) 6 % (0-9) Eosinophils (%) (Auto) 0 % (0-3) Basophils (%) (Auto) 0 % (0-3) Neutrophils # (Auto) 6.4 x10^3/uL (1.8-7.7) Lymphocytes # (Auto) 0.7 x10^3/uL (1.0-4.8) Monocytes # (Auto) 0.5 x10^3/uL (0.0-1.1) Eosinophils # (Auto) 0.0 x10^3/uL (0.0-0.7) Basophils # (Auto) 0.0 x10^3/uL (0.0-0.2) Sodium Level 142 mmol/L (136-145) Potassium Level 3.5 mmol/L (3.5-5.1) Chloride Level 106 mmol/L (98-107) Carbon Dioxide Level 28 mmol/L (21-32) Anion Gap 8 (6-14) Blood Urea Nitrogen 11 mg/dL (8-26) Creatinine 0.4 mg/dL (0.7-1.3) Estimated GFR (Cockcroft-Gault) 239.5 Glucose Level 138 mg/dL (70-99) Calcium Level 8.0 mg/dL (8.5-10.1) Assessment and Plan Assessmemt and Plan Problems Medical Problems: (1) Hypoxia Status: Acute (2) Person under investigation for COVID-19 Status: Acute (3) Pneumonia Status: Acute Comment Review of Relevant I have reviewed the following items teresa (where applicable) has been applied. Medications: Current Medications Medications (Trade) Dose Ordered Sig/Dutch Route PRN Reason Start Time Stop Time Status Last Admin Dose Admin Insulin Glargine (Lantus Syringe) 20 unit QHS SQ 01/14/21 21:00 01/14/21 21:21 Potassium Chloride (Klor-Con) 40 meq 1X ONCE PO 01/14/21 12:30 01/14/21 12:33 DC 01/14/21 12:35 Justifications for Admission Other Justification JAMEL ZAMORANO MD Jan 15, 2021 08:52
[2021-01-15] MEDS: FAMOTIDINE 20 MG TABLET. PO SCH ×2 (09:00→21:05)
[2021-01-15] MEDS: ASCORBIC ACID 500 MG TABLET PO SCH ×2 (09:00→21:05)
[2021-01-15] MEDS: SENNOSIDES/DOCUSATE 8.6/50MG TABLET. PO SCH ×2 (09:00→21:05)
[2021-01-15] MEDS: ELECTROLYTE (ICU) PROTOCOL. MC SCH (09:00)
[2021-01-15] MEDS: DEXAMETHASONE SOD PHOS 4 MG/ML VIAL IVP SCH (09:00)
--- NOTE | 2021-01-15 10:50 | PDOC ---
PULMONARY PROGRESS NOTES DATE: 01/15/21 TIME: 10:49 Subjective Remains on Vapotherm at 100% FiO2 and 40 L flow. Does not appear to be in any obvious respiratory distress. Vitals Vital Signs Date Time Temp Pulse Resp B/P (MAP) Pulse Ox O2 Delivery O2 Flow Rate FiO2 01/15/21 09:30 93 VAPOTHERM 40.0 01/15/21 06:00 74 38 145/88 (107) 01/15/21 04:00 98.2 98.2 Comments Patient seen during , visual exam performed Regular rate and rhythm No distress No obvious rash or edema NO Accessory muscle use General: Alert, Oriented X4 Labs Laboratory Tests Test 01/13/21 11:52 01/13/21 17:26 01/13/21 19:28 01/14/21 08:26 Glucose (Fingerstick) 265 mg/dL (70-99) 227 mg/dL (70-99) 332 mg/dL (70-99) O2 Saturation 96 % (92-99) Arterial Blood pH 7.52 (7.35-7.45) Arterial Blood pCO2 at Patient Temp 29 mmHg (35-46) Arterial Blood pO2 at Patient Temp 79 mmHg (75-108) Arterial Blood HCO3 23 mmol/L (21-28) Arterial Blood Base Excess 1 mmol/L (-3-3) FiO2 100 Test 01/14/21 08:47 01/14/21 11:40 01/14/21 12:21 01/14/21 16:31 Glucose (Fingerstick) 196 mg/dL (70-99) 194 mg/dL (70-99) 206 mg/dL (70-99) White Blood Count 8.2 x10^3/uL (4.0-11.0) Red Blood Count 4.12 x10^6/uL (4.30-5.70) Hemoglobin 13.1 g/dL (13.0-17.5) Hematocrit 38.4 % (39.0-53.0) Mean Corpuscular Volume 93 fL (79-100) Mean Corpuscular Hemoglobin 32 pg (25-35) Mean Corpuscular Hemoglobin Concent 34 g/dL (31-37) Red Cell Distribution Width 12.5 % (11.5-14.5) Platelet Count 250 x10^3/uL (140-400) Neutrophils (%) (Auto) 91 % (31-73) Lymphocytes (%) (Auto) 5 % (24-48) Monocytes (%) (Auto) 5 % (0-9) Eosinophils (%) (Auto) 0 % (0-3) Basophils (%) (Auto) 0 % (0-3) Neutrophils # (Auto) 7.5 x10^3/uL (1.8-7.7) Lymphocytes # (Auto) 0.4 x10^3/uL (1.0-4.8) Monocytes # (Auto) 0.4 x10^3/uL (0.0-1.1) Eosinophils # (Auto) 0.0 x10^3/uL (0.0-0.7) Basophils # (Auto) 0.0 x10^3/uL (0.0-0.2) Segmented Neutrophils % 90 % (35-66) Lymphocytes % 8 % (24-48) Monocytes % 2 % (0-10) Platelet Estimate Adequate (ADEQUATE) Sodium Level 139 mmol/L (136-145) Potassium Level 3.5 mmol/L (3.5-5.1) Chloride Level 104 mmol/L (98-107) Carbon Dioxide Level 28 mmol/L (21-32) Anion Gap 7 (6-14) Blood Urea Nitrogen 10 mg/dL (8-26) Creatinine 0.5 mg/dL (0.7-1.3) Estimated GFR (Cockcroft-Gault) 185.1 Glucose Level 178 mg/dL (70-99) Calcium Level 8.0 mg/dL (8.5-10.1) Test 01/14/21 23:36 01/15/21 04:00 01/15/21 08:38 Glucose (Fingerstick) 160 mg/dL (70-99) 110 mg/dL (70-99) White Blood Count 7.5 x10^3/uL (4.0-11.0) Red Blood Count 4.28 x10^6/uL (4.30-5.70) Hemoglobin 13.6 g/dL (13.0-17.5) Hematocrit 39.3 % (39.0-53.0) Mean Corpuscular Volume 92 fL (79-100) Mean Corpuscular Hemoglobin 32 pg (25-35) Mean Corpuscular Hemoglobin Concent 35 g/dL (31-37) Red Cell Distribution Width 12.6 % (11.5-14.5) Platelet Count 242 x10^3/uL (140-400) Neutrophils (%) (Auto) 85 % (31-73) Lymphocytes (%) (Auto) 9 % (24-48) Monocytes (%) (Auto) 6 % (0-9) Eosinophils (%) (Auto) 0 % (0-3) Basophils (%) (Auto) 0 % (0-3) Neutrophils # (Auto) 6.4 x10^3/uL (1.8-7.7) Lymphocytes # (Auto) 0.7 x10^3/uL (1.0-4.8) Monocytes # (Auto) 0.5 x10^3/uL (0.0-1.1) Eosinophils # (Auto) 0.0 x10^3/uL (0.0-0.7) Basophils # (Auto) 0.0 x10^3/uL (0.0-0.2) Sodium Level 142 mmol/L (136-145) Potassium Level 3.5 mmol/L (3.5-5.1) Chloride Level 106 mmol/L (98-107) Carbon Dioxide Level 28 mmol/L (21-32) Anion Gap 8 (6-14) Blood Urea Nitrogen 11 mg/dL (8-26) Creatinine 0.4 mg/dL (0.7-1.3) Estimated GFR (Cockcroft-Gault) 239.5 Glucose Level 138 mg/dL (70-99) Calcium Level 8.0 mg/dL (8.5-10.1) Laboratory Tests Test 01/14/21 11:40 01/14/21 12:21 01/14/21 16:31 01/14/21 23:36 White Blood Count 8.2 x10^3/uL (4.0-11.0) Red Blood Count 4.12 x10^6/uL (4.30-5.70) Hemoglobin 13.1 g/dL (13.0-17.5) Hematocrit 38.4 % (39.0-53.0) Mean Corpuscular Volume 93 fL (79-100) Mean Corpuscular Hemoglobin 32 pg (25-35) Mean Corpuscular Hemoglobin Concent 34 g/dL (31-37) Red Cell Distribution Width 12.5 % (11.5-14.5) Platelet Count 250 x10^3/uL (140-400) Neutrophils (%) (Auto) 91 % (31-73) Lymphocytes (%) (Auto) 5 % (24-48) Monocytes (%) (Auto) 5 % (0-9) Eosinophils (%) (Auto) 0 % (0-3) Basophils (%) (Auto) 0 % (0-3) Neutrophils # (Auto) 7.5 x10^3/uL (1.8-7.7) Lymphocytes # (Auto) 0.4 x10^3/uL (1.0-4.8) Monocytes # (Auto) 0.4 x10^3/uL (0.0-1.1) Eosinophils # (Auto) 0.0 x10^3/uL (0.0-0.7) Basophils # (Auto) 0.0 x10^3/uL (0.0-0.2) Segmented Neutrophils % 90 % (35-66) Lymphocytes % 8 % (24-48) Monocytes % 2 % (0-10) Platelet Estimate Adequate (ADEQUATE) Sodium Level 139 mmol/L (136-145) Potassium Level 3.5 mmol/L (3.5-5.1) Chloride Level 104 mmol/L (98-107) Carbon Dioxide Level 28 mmol/L (21-32) Anion Gap 7 (6-14) Blood Urea Nitrogen 10 mg/dL (8-26) Creatinine 0.5 mg/dL (0.7-1.3) Estimated GFR (Cockcroft-Gault) 185.1 Glucose Level 178 mg/dL (70-99) Calcium Level 8.0 mg/dL (8.5-10.1) Glucose (Fingerstick) 194 mg/dL (70-99) 206 mg/dL (70-99) 160 mg/dL (70-99) Test 01/15/21 04:00 01/15/21 08:38 White Blood Count 7.5 x10^3/uL (4.0-11.0) Red Blood Count 4.28 x10^6/uL (4.30-5.70) Hemoglobin 13.6 g/dL (13.0-17.5) Hematocrit 39.3 % (39.0-53.0) Mean Corpuscular Volume 92 fL (79-100) Mean Corpuscular Hemoglobin 32 pg (25-35) Mean Corpuscular Hemoglobin Concent 35 g/dL (31-37) Red Cell Distribution Width 12.6 % (11.5-14.5) Platelet Count 242 x10^3/uL (140-400) Neutrophils (%) (Auto) 85 % (31-73) Lymphocytes (%) (Auto) 9 % (24-48) Monocytes (%) (Auto) 6 % (0-9) Eosinophils (%) (Auto) 0 % (0-3) Basophils (%) (Auto) 0 % (0-3) Neutrophils # (Auto) 6.4 x10^3/uL (1.8-7.7) Lymphocytes # (Auto) 0.7 x10^3/uL (1.0-4.8) Monocytes # (Auto) 0.5 x10^3/uL (0.0-1.1) Eosinophils # (Auto) 0.0 x10^3/uL (0.0-0.7) Basophils # (Auto) 0.0 x10^3/uL (0.0-0.2) Sodium Level 142 mmol/L (136-145) Potassium Level 3.5 mmol/L (3.5-5.1) Chloride Level 106 mmol/L (98-107) Carbon Dioxide Level 28 mmol/L (21-32) Anion Gap 8 (6-14) Blood Urea Nitrogen 11 mg/dL (8-26) Creatinine 0.4 mg/dL (0.7-1.3) Estimated GFR (Cockcroft-Gault) 239.5 Glucose Level 138 mg/dL (70-99) Calcium Level 8.0 mg/dL (8.5-10.1) Glucose (Fingerstick) 110 mg/dL (70-99) Medications Active Scripts Medications Dose Route/Sig Max Daily Dose Days Date Category No Known Medications Prior To Admisstion (Info) Each 1 Each 1X 01/11/21 Reported Comments CTA chest IMPRESSION: 1. No evidence of central pulmonary embolism. The evaluation of distal branches of the pulmonary arteries is limited. 2. Numerous groundglass focal consolidation and airspace opacities identified throughout the bilateral lungs diffusely likely infiltrates or covid /viral pneumonia. Follow-up to resolution. Impression . IMPRESSION: 1. Acute hypoxic respiratory failure secondary to COVID-19 pneumonia, acute lung injury /acute respiratory distress syndrome. Oxygen requirement has increased. Currently on 100% nonrebreather mask in addition to the Vapotherm at 90% FiO2 and 30 L flow. We will monitor closely his respiratory status. 2. Abnormal chest x-ray with diffuse bilateral infiltrates consistent with COVID-19 pneumonia. 3. CTA chest with no evidence of pulmonary embolism. However, there are bilateral infiltrates consistent with viral pneumonia. 4. No significant tobacco history. 5. Unvaccinated for COVID-19. Plan . Updated 01/15/2021 Continue with present Vapotherm at 100% FiO2 and 40 L flow. He appears to be comfortable. No paradoxical breathing. We will watch his respiratory status closely. At this point he does not need to be intubated. Continue current remdesivir Continue dexamethasone Monitor off antibiotics MDI Encourage p.o. intake DVT/GI prophylaxis Discussed with RN and RT Will monitor respiratory status closely. At this point he does not need intubation. Updated 01/14/2021 Continue with present Vapotherm at 90% FiO2 and 30 L flow. Continue with additional nonrebreather mask. He appears to be comfortable. No paradoxical breathing. We will watch his respiratory status closely. At this point he does not need to be intubated. Continue current remdesivir Continue dexamethasone Monitor off antibiotics MDI Encourage p.o. intake DVT/GI prophylaxis Discussed with RN and RT Will monitor respiratory status closely. At this point he does not need intubation. Critical care time 30 minutes Updated 01/13/2021 Continue with present Vapotherm at 90% FiO2 and 30 L flow. Continue with additional nonrebreather mask. He appears to be comfortable. No paradoxical breathing. We will watch his respiratory status closely. At this point he does not need to be intubated. Continue current remdesivir Continue dexamethasone Monitor off antibiotics MDI Encourage p.o. intake DVT/GI prophylaxis Discussed with RN and RT Critical care time 30 minutes Updated 01/12/2021 Continue supplemental oxygen to keep oxygen saturations greater than 92%, currently on Vapotherm 25 L and 80% Continue current remdesivir Continue dexamethasone Monitor off antibiotics MDI Encourage p.o. intake DVT/GI prophylaxis Discussed with RN and RT RECOMMENDATIONS: 01/11/21 1. Continue with present Vapotherm at 80% FIO2 and 25 liters. 2. We will follow ABGs and oxygen saturations and make further decisions. 3. Remdesivir is initiated. 4. Continue dexamethasone. 5. Continue nebulizer. 6. Lovenox for DVT prophylaxis. 7. Discussed with the patient and RN. NIYAH DUARTE MD Jan 15, 2021 10:50
[2021-01-15] MEDS: REMDESIVIR 100mg in NORMAL SALINE 250ML X 4 DAYS IV SCH (15:47)
[2021-01-15] MEDS ORDERED: POTASSIUM CHLORIDE 20 MEQ TABLET.ER. PO ONE (16:00)
[2021-01-15] MEDS: STERILE WATER for RESP 1,000 ML BAG. INH PRN (16:28)
[2021-01-15] MEDS: INSULIN LISPRO 300 UNITS/3 ML VIAL. SQ SCH (17:34)
[2021-01-15] MEDS: ENOXAPARIN 40 MG/0.4 ML SYRINGE. SQ SCH (17:35)
[2021-01-15] MEDS: INSULIN GLARGINE SYRINGE. SQ SCH (21:06)
[2021-01-16] VITALS (24 sets, daily range): BP systolic 96–129; BP diastolic 65–82
[2021-01-16] MEDS: IV NORMAL SALINE 1000ML BAG 1,000 ML IV SCH ×3 (03:56→20:02)
[2021-01-16 05:39] LABS: CALCIUM 8.4 mg/dL (8.5-10.1); CREATININE 0.4 mg/dL (0.7-1.3); GFR 239.5; POTASSIUM 3.4 mmol/L (3.5-5.1)
[2021-01-16 06:03] LABS: BASO % 0 % (0-3); EOS % 0 % (0-3); HEMATOCRIT 38.8 % (39.0-53.0); HEMOGLOBIN 13.2 g/dL (13.0-17.5); LYMPH # 0.7 x10^3/uL (1.0-4.8); LYMPH % 7 % (24-48); MEAN CORPUSCULAR HEMOGLOBIN 32 pg (25-35); MEAN CORPUSCULAR HGB CONC 34 g/dL (31-37); MEAN CORPUSCULAR VOLUME 93 fL (79-100); MONO # 0.5 x10^3/uL (0.0-1.1); MONO % 5 % (0-9); NEUT # 8.8 x10^3/uL (1.8-7.7); NEUT % 88 % (31-73); PLATELET COUNT 264 x10^3/uL (140-400); RED BLOOD COUNT 4.16 x10^6/uL (4.30-5.70); RED CELL DISTRIBUTION WIDTH 12.6 % (11.5-14.5); WHITE BLOOD COUNT 10.1 x10^3/uL (4.0-11.0)
[2021-01-16] MEDS: IPRATROPIUM/ALBUTEROL 20/100mcg/INH INHALER. INH SCH ×4 (08:00→19:46)
[2021-01-16] MEDS: INSULIN LISPRO 300 UNITS/3 ML VIAL. SQ SCH ×5 (08:00→17:34)
--- NOTE | 2021-01-16 08:33 | PDOC ---
[employer] PROGRESS NOTE Date of Service DOS: DATE: 01/16/21 TIME: 08:30 Chief Complaint Chief Complaint Acute hypoxic respiratory failure secondary to COVID-19 pneumonia New DM2 hyperglycemia Severe malnutrition -1 week history of worsening respiratory status and fatigue -Did not receive Covid vaccine -Presents to urgent care this morning where her O2 sats found to be 75%; was sent to the emergency room here -Covid test here positive -Imaging including CTA of the chest consistent with Covid pneumonia -Inhaler as needed; started on Decadron and remdesivir -We will await pulmonary input regarding antibiotics -Patient hyperglycemic on admission will give sliding scale insulin; patient denies a history of type 2 diabetes -No other home meds required to be restarted History of Present Illness History of Present Illness Patient is a 40-year-old male without any reported past medical history presented to the emergency room today from urgent care where he was found to have an oxygen saturation of 76% on room air there. Patient went to urgent care because over the past week he had been having a cough, overall fatigue and weakness, dyspnea with exertion, intermittent chest pain, fevers, decreased p.o. intake. Patient denied any sick contacts. He is not a smoker. He did not receive the Covid vaccine. Upon arrival to the emergency room he was placed on 6 L of oxygen and saturations increased to 82%. Nonrebreather was tried however this did not really increase his oxygen saturations and by the time I went to evaluate him he was on continuous BiPAP with saturations in the low 90s. Patient admitting to ICU due to concern for respiratory status given Covid infection and possible need for mechanical ventilation. When evaluated in the emergency room patient was able to gesture that he was feeling somewhat better however was still having shortness of breath and cough. He was also reporting headache. Otherwise no major complaints. 01/16/2021: Afebrile, breathing Vapotherm 40 L at FiO2 100%. Tachypneic. Will monitor off antibiotics. Completed remdesivir. Continue Decadron and supportive care. 30 minutes critical care time spent reviewing charts, reviewing labs, discussion with RN. 01/15/2021: Afebrile, tachypnea, breathing Vapotherm 40 L. Reports family history of DM2. Hemoglobin A1c 13.4; DM2 is new diagnosis and he will need to discharge on appropriate medications. Continue treatment with Decadron, antibi otics, regarding supportive care. 01/14/2021: Afebrile, tachypneic. Breathing 40 L Vapotherm. Still with nonproductive cough. CBG 332 overnight. Will increase basal/prandial insulin. Continue treatment with remdesivir day 4/5. Continue steroids and supportive care. Hemoglobin A1c pending. Critical care time 30 minutes spent reviewing labs, reviewing charts, reviewing imaging, discussion with RN. 01/13/2021: Afebrile, breathing on Vapotherm at 30 L, FiO2 90%. No acute events overnight, patient has no complaints. Dry cough noted on exam. Continue treatment with remdesivir day 3/5. Continue steroids and supportive care. Stil l with some hyperglycemia; hemoglobin A1c pending. 30 minutes critical care time spent reviewing labs, reviewing charts, reviewing imaging, discussion with RN. 01/12/2021: Patient seen in ICU. Afebrile, tachycardic, breathing on 25 L Vapotherm. No complaints today; concerned about medical leave from job. Concern for some persistent hypoglycemia; will adjust insulin and check hemoglobin A1c. Continue treatment with remdesivir and steroids. 30 minutes critical care time spent reviewing charts, doing labs, urine imaging, and discussion with RN. Vitals/I&O Vitals/I&O: Vital Signs Date Time Temp Pulse Resp B/P (MAP) Pulse Ox O2 Delivery O2 Flow Rate FiO2 01/16/21 06:00 87 27 111/66 (81) 95 40.0 01/16/21 04:51 VAPOTHERM 01/16/21 04:00 98.3 98.3 I & O 01/15/21 01/15/21 01/16/21 15:00 23:00 07:00 Intake Total 120 ml 1730 ml 460 ml Output Total 975 ml 650 ml 725 ml Balance -855 ml 1080 ml -265 ml Physical Exam General: Alert, Oriented X3, Cooperative, No acute distress Heart: Other (Tachycardic) Abdomen: No hepatosplenomegaly, No masses Extremities: No clubbing, No cyanosis Skin: No rashes, No breakdown Labs Labs: Laboratory Tests Test 01/15/21 08:38 01/15/21 12:51 01/15/21 17:28 01/15/21 20:17 Glucose (Fingerstick) 110 mg/dL (70-99) 178 mg/dL (70-99) 148 mg/dL (70-99) 180 mg/dL (70-99) Test 01/16/21 05:15 White Blood Count 10.1 x10^3/uL (4.0-11.0) Red Blood Count 4.16 x10^6/uL (4.30-5.70) Hemoglobin 13.2 g/dL (13.0-17.5) Hematocrit 38.8 % (39.0-53.0) Mean Corpuscular Volume 93 fL (79-100) Mean Corpuscular Hemoglobin 32 pg (25-35) Mean Corpuscular Hemoglobin Concent 34 g/dL (31-37) Red Cell Distribution Width 12.6 % (11.5-14.5) Platelet Count 264 x10^3/uL (140-400) Neutrophils (%) (Auto) 88 % (31-73) Lymphocytes (%) (Auto) 7 % (24-48) Monocytes (%) (Auto) 5 % (0-9) Eosinophils (%) (Auto) 0 % (0-3) Basophils (%) (Auto) 0 % (0-3) Neutrophils # (Auto) 8.8 x10^3/uL (1.8-7.7) Lymphocytes # (Auto) 0.7 x10^3/uL (1.0-4.8) Monocytes # (Auto) 0.5 x10^3/uL (0.0-1.1) Eosinophils # (Auto) 0.0 x10^3/uL (0.0-0.7) Basophils # (Auto) 0.0 x10^3/uL (0.0-0.2) Sodium Level 142 mmol/L (136-145) Potassium Level 3.4 mmol/L (3.5-5.1) Chloride Level 105 mmol/L (98-107) Carbon Dioxide Level 30 mmol/L (21-32) Anion Gap 7 (6-14) Blood Urea Nitrogen 9 mg/dL (8-26) Creatinine 0.4 mg/dL (0.7-1.3) Estimated GFR (Cockcroft-Gault) 239.5 Glucose Level 136 mg/dL (70-99) Calcium Level 8.4 mg/dL (8.5-10.1) Assessment and Plan Assessmemt and Plan Problems Medical Problems: (1) Hypoxia Status: Acute (2) Person under investigation for COVID-19 Status: Acute (3) Pneumonia Status: Acute Comment Review of Relevant I have reviewed the following items teresa (where applicable) has been applied. Medications: Current Medications Medications (Trade) Dose Ordered Sig/Dutch Route PRN Reason Start Time Stop Time Status Last Admin Dose Admin Potassium Chloride (Klor-Con) 40 meq 1X ONCE PO 01/15/21 16:00 01/15/21 16:06 DC 01/15/21 17:21 Justifications for Admission Other Justification JAMEL ZAMORANO MD Jan 16, 2021 08:33
[2021-01-16] MEDS: DEXAMETHASONE SOD PHOS 4 MG/ML VIAL IVP SCH (08:55)
[2021-01-16] MEDS: ASCORBIC ACID 500 MG TABLET PO SCH ×2 (08:55→19:46)
[2021-01-16] MEDS: FAMOTIDINE 20 MG TABLET. PO SCH ×2 (08:55→19:46)
[2021-01-16] MEDS: SENNOSIDES/DOCUSATE 8.6/50MG TABLET. PO SCH ×2 (08:57→19:46)
[2021-01-16] MEDS: ELECTROLYTE (ICU) PROTOCOL. MC SCH (09:00)
[2021-01-16] MEDS ORDERED: POTASSIUM CHLORIDE 20 MEQ TABLET.ER. PO ONE (09:15)
--- NOTE | 2021-01-16 09:34 | PDOC ---
PULMONARY PROGRESS NOTES DATE: 01/16/21 TIME: 09:33 Subjective Remains on Vapotherm at 100% FiO2 and 40 L flow. Does not appear to be in any obvious respiratory distress. Vitals Vital Signs Date Time Temp Pulse Resp B/P (MAP) Pulse Ox O2 Delivery O2 Flow Rate FiO2 01/16/21 09:25 96 VAPOTHERM 40.0 01/16/21 06:00 87 27 111/66 (81) 01/16/21 04:00 98.3 98.3 Comments Patient seen during pandemic, visual exam performed Regular rate and rhythm No distress No obvious rash or edema NO Accessory muscle use General: Alert, Oriented X4 Labs Laboratory Tests Test 01/14/21 11:40 01/14/21 12:21 01/14/21 16:31 01/14/21 23:36 White Blood Count 8.2 x10^3/uL (4.0-11.0) Red Blood Count 4.12 x10^6/uL (4.30-5.70) Hemoglobin 13.1 g/dL (13.0-17.5) Hematocrit 38.4 % (39.0-53.0) Mean Corpuscular Volume 93 fL (79-100) Mean Corpuscular Hemoglobin 32 pg (25-35) Mean Corpuscular Hemoglobin Concent 34 g/dL (31-37) Red Cell Distribution Width 12.5 % (11.5-14.5) Platelet Count 250 x10^3/uL (140-400) Neutrophils (%) (Auto) 91 % (31-73) Lymphocytes (%) (Auto) 5 % (24-48) Monocytes (%) (Auto) 5 % (0-9) Eosinophils (%) (Auto) 0 % (0-3) Basophils (%) (Auto) 0 % (0-3) Neutrophils # (Auto) 7.5 x10^3/uL (1.8-7.7) Lymphocytes # (Auto) 0.4 x10^3/uL (1.0-4.8) Monocytes # (Auto) 0.4 x10^3/uL (0.0-1.1) Eosinophils # (Auto) 0.0 x10^3/uL (0.0-0.7) Basophils # (Auto) 0.0 x10^3/uL (0.0-0.2) Segmented Neutrophils % 90 % (35-66) Lymphocytes % 8 % (24-48) Monocytes % 2 % (0-10) Platelet Estimate Adequate (ADEQUATE) Sodium Level 139 mmol/L (136-145) Potassium Level 3.5 mmol/L (3.5-5.1) Chloride Level 104 mmol/L (98-107) Carbon Dioxide Level 28 mmol/L (21-32) Anion Gap 7 (6-14) Blood Urea Nitrogen 10 mg/dL (8-26) Creatinine 0.5 mg/dL (0.7-1.3) Estimated GFR (Cockcroft-Gault) 185.1 Glucose Level 178 mg/dL (70-99) Calcium Level 8.0 mg/dL (8.5-10.1) Glucose (Fingerstick) 194 mg/dL (70-99) 206 mg/dL (70-99) 160 mg/dL (70-99) Test 01/15/21 04:00 01/15/21 08:38 01/15/21 12:51 01/15/21 17:28 White Blood Count 7.5 x10^3/uL (4.0-11.0) Red Blood Count 4.28 x10^6/uL (4.30-5.70) Hemoglobin 13.6 g/dL (13.0-17.5) Hematocrit 39.3 % (39.0-53.0) Mean Corpuscular Volume 92 fL (79-100) Mean Corpuscular Hemoglobin 32 pg (25-35) Mean Corpuscular Hemoglobin Concent 35 g/dL (31-37) Red Cell Distribution Width 12.6 % (11.5-14.5) Platelet Count 242 x10^3/uL (140-400) Neutrophils (%) (Auto) 85 % (31-73) Lymphocytes (%) (Auto) 9 % (24-48) Monocytes (%) (Auto) 6 % (0-9) Eosinophils (%) (Auto) 0 % (0-3) Basophils (%) (Auto) 0 % (0-3) Neutrophils # (Auto) 6.4 x10^3/uL (1.8-7.7) Lymphocytes # (Auto) 0.7 x10^3/uL (1.0-4.8) Monocytes # (Auto) 0.5 x10^3/uL (0.0-1.1) Eosinophils # (Auto) 0.0 x10^3/uL (0.0-0.7) Basophils # (Auto) 0.0 x10^3/uL (0.0-0.2) Sodium Level 142 mmol/L (136-145) Potassium Level 3.5 mmol/L (3.5-5.1) Chloride Level 106 mmol/L (98-107) Carbon Dioxide Level 28 mmol/L (21-32) Anion Gap 8 (6-14) Blood Urea Nitrogen 11 mg/dL (8-26) Creatinine 0.4 mg/dL (0.7-1.3) Estimated GFR (Cockcroft-Gault) 239.5 Glucose Level 138 mg/dL (70-99) Calcium Level 8.0 mg/dL (8.5-10.1) Glucose (Fingerstick) 110 mg/dL (70-99) 178 mg/dL (70-99) 148 mg/dL (70-99) Test 01/15/21 20:17 01/16/21 05:15 01/16/21 09:11 Glucose (Fingerstick) 180 mg/dL (70-99) 117 mg/dL (70-99) White Blood Count 10.1 x10^3/uL (4.0-11.0) Red Blood Count 4.16 x10^6/uL (4.30-5.70) Hemoglobin 13.2 g/dL (13.0-17.5) Hematocrit 38.8 % (39.0-53.0) Mean Corpuscular Volume 93 fL (79-100) Mean Corpuscular Hemoglobin 32 pg (25-35) Mean Corpuscular Hemoglobin Concent 34 g/dL (31-37) Red Cell Distribution Width 12.6 % (11.5-14.5) Platelet Count 264 x10^3/uL (140-400) Neutrophils (%) (Auto) 88 % (31-73) Lymphocytes (%) (Auto) 7 % (24-48) Monocytes (%) (Auto) 5 % (0-9) Eosinophils (%) (Auto) 0 % (0-3) Basophils (%) (Auto) 0 % (0-3) Neutrophils # (Auto) 8.8 x10^3/uL (1.8-7.7) Lymphocytes # (Auto) 0.7 x10^3/uL (1.0-4.8) Monocytes # (Auto) 0.5 x10^3/uL (0.0-1.1) Eosinophils # (Auto) 0.0 x10^3/uL (0.0-0.7) Basophils # (Auto) 0.0 x10^3/uL (0.0-0.2) Sodium Level 142 mmol/L (136-145) Potassium Level 3.4 mmol/L (3.5-5.1) Chloride Level 105 mmol/L (98-107) Carbon Dioxide Level 30 mmol/L (21-32) Anion Gap 7 (6-14) Blood Urea Nitrogen 9 mg/dL (8-26) Creatinine 0.4 mg/dL (0.7-1.3) Estimated GFR (Cockcroft-Gault) 239.5 Glucose Level 136 mg/dL (70-99) Calcium Level 8.4 mg/dL (8.5-10.1) Laboratory Tests Test 01/15/21 12:51 01/15/21 17:28 01/15/21 20:17 01/16/21 05:15 Glucose (Fingerstick) 178 mg/dL (70-99) 148 mg/dL (70-99) 180 mg/dL (70-99) White Blood Count 10.1 x10^3/uL (4.0-11.0) Red Blood Count 4.16 x10^6/uL (4.30-5.70) Hemoglobin 13.2 g/dL (13.0-17.5) Hematocrit 38.8 % (39.0-53.0) Mean Corpuscular Volume 93 fL (79-100) Mean Corpuscular Hemoglobin 32 pg (25-35) Mean Corpuscular Hemoglobin Concent 34 g/dL (31-37) Red Cell Distribution Width 12.6 % (11.5-14.5) Platelet Count 264 x10^3/uL (140-400) Neutrophils (%) (Auto) 88 % (31-73) Lymphocytes (%) (Auto) 7 % (24-48) Monocytes (%) (Auto) 5 % (0-9) Eosinophils (%) (Auto) 0 % (0-3) Basophils (%) (Auto) 0 % (0-3) Neutrophils # (Auto) 8.8 x10^3/uL (1.8-7.7) Lymphocytes # (Auto) 0.7 x10^3/uL (1.0-4.8) Monocytes # (Auto) 0.5 x10^3/uL (0.0-1.1) Eosinophils # (Auto) 0.0 x10^3/uL (0.0-0.7) Basophils # (Auto) 0.0 x10^3/uL (0.0-0.2) Sodium Level 142 mmol/L (136-145) Potassium Level 3.4 mmol/L (3.5-5.1) Chloride Level 105 mmol/L (98-107) Carbon Dioxide Level 30 mmol/L (21-32) Anion Gap 7 (6-14) Blood Urea Nitrogen 9 mg/dL (8-26) Creatinine 0.4 mg/dL (0.7-1.3) Estimated GFR (Cockcroft-Gault) 239.5 Glucose Level 136 mg/dL (70-99) Calcium Level 8.4 mg/dL (8.5-10.1) Test 01/16/21 09:11 Glucose (Fingerstick) 117 mg/dL (70-99) Medications Active Scripts Medications Dose Route/Sig Max Daily Dose Days Date Category No Known Medications Prior To Admisstion (Info) Each 1 Each 1X 01/11/21 Reported Comments CTA chest IMPRESSION: 1. No evidence of central pulmonary embolism. The evaluation of distal branches of the pulmonary arteries is limited. 2. Numerous groundglass focal consolidation and airspace opacities identified throughout the bilateral lungs diffusely likely infiltrates or covid /viral pneumonia. Follow-up to resolution. Impression . IMPRESSION: 1. Acute hypoxic respiratory failure secondary to COVID-19 pneumonia, acute lung injury /acute respiratory distress syndrome. Oxygen requirement has increased. Currently on 100% nonrebreather mask in addition to the Vapotherm at 90% FiO2 and 30 L flow. We will monitor closely his respiratory status. 2. Abnormal chest x-ray with diffuse bilateral infiltrates consistent with COVID-19 pneumonia. 3. CTA chest with no evidence of pulmonary embolism. However, there are bilateral infiltrates consistent with viral pneumonia. 4. No significant tobacco history. 5. Unvaccinated for COVID-19. Plan . Updated 01/16/2021 Continue with present Vapotherm at 100% FiO2 and 40 L flow. He appears to be comfortable. No paradoxical breathing. We will watch his respiratory status closely. At this point he does not need to be intubated. Continue current remdesivir Continue dexamethasone Monitor off antibiotics MDI Encourage p.o. intake DVT/GI prophylaxis Discussed with RN and RT Will monitor respiratory status closely. At this point he does not need intubation. Updated 01/15/2021 Continue with present Vapotherm at 100% FiO2 and 40 L flow. He appears to be comfortable. No paradoxical breathing. We will watch his respiratory status closely. At this point he does not need to be intubated. Continue current remdesivir Continue dexamethasone Monitor off antibiotics MDI Encourage p.o. intake DVT/GI prophylaxis Discussed with RN and RT Will monitor respiratory status closely. At this point he does not need intubation. Updated 01/14/2021 Continue with present Vapotherm at 90% FiO2 and 30 L flow. Continue with additional nonrebreather mask. He appears to be comfortable. No paradoxical breathing. We will watch his respiratory status closely. At this point he does not need to be intubated. Continue current remdesivir Continue dexamethasone Monitor off antibiotics MDI Encourage p.o. intake DVT/GI prophylaxis Discussed with RN and RT Will monitor respiratory status closely. At this point he does not need intubation. Critical care time 30 minutes Updated 01/13/2021 Continue with present Vapotherm at 90% FiO2 and 30 L flow. Continue with additional nonrebreather mask. He appears to be comfortable. No paradoxical breathing. We will watch his respiratory status closely. At this point he does not need to be intubated. Continue current remdesivir Continue dexamethasone Monitor off antibiotics MDI Encourage p.o. intake DVT/GI prophylaxis Discussed with RN and RT Critical care time 30 minutes Updated 01/12/2021 Continue supplemental oxygen to keep oxygen saturations greater than 92%, currently on Vapotherm 25 L and 80% Continue current remdesivir Continue dexamethasone Monitor off antibiotics MDI Encourage p.o. intake DVT/GI prophylaxis Discussed with RN and RT RECOMMENDATIONS: 01/11/21 1. Continue with present Vapotherm at 80% FIO2 and 25 liters. 2. We will follow ABGs and oxygen saturations and make further decisions. 3. Remdesivir is initiated. 4. Continue dexamethasone. 5. Continue nebulizer. 6. Lovenox for DVT prophylaxis. 7. Discussed with the patient and RN. NIYAH DUARTE MD Jan 16, 2021 09:33
[2021-01-16] MEDS: ENOXAPARIN 40 MG/0.4 ML SYRINGE. SQ SCH (18:35)
[2021-01-16] MEDS: INSULIN GLARGINE SYRINGE. SQ SCH (20:00)
[2021-01-17] VITALS (23 sets, daily range): BP systolic 103–139; BP diastolic 59–87
[2021-01-17] MEDS: IV NORMAL SALINE 1000ML BAG 1,000 ML IV SCH ×4 (06:01→22:53)
[2021-01-17 07:50] LABS: BASO % 0 % (0-3); EOS # 0.2 x10^3/uL (0.0-0.7); EOS % 2 % (0-3); HEMATOCRIT 36.9 % (39.0-53.0); HEMOGLOBIN 12.6 g/dL (13.0-17.5); LYMPH # 0.6 x10^3/uL (1.0-4.8); LYMPH % 5 % (24-48); MEAN CORPUSCULAR HEMOGLOBIN 32 pg (25-35); MEAN CORPUSCULAR HGB CONC 34 g/dL (31-37); MEAN CORPUSCULAR VOLUME 93 fL (79-100); MONO # 0.5 x10^3/uL (0.0-1.1); MONO % 5 % (0-9); NEUT # 9.1 x10^3/uL (1.8-7.7); NEUT % 88 % (31-73); PLATELET COUNT 235 x10^3/uL (140-400); RED BLOOD COUNT 3.98 x10^6/uL (4.30-5.70); RED CELL DISTRIBUTION WIDTH 12.3 % (11.5-14.5); WHITE BLOOD COUNT 10.4 x10^3/uL (4.0-11.0)
[2021-01-17] MEDS: FAMOTIDINE 20 MG TABLET. PO SCH ×2 (07:57→20:40)
[2021-01-17] MEDS: IPRATROPIUM/ALBUTEROL 20/100mcg/INH INHALER. INH SCH ×4 (08:00→20:30)
[2021-01-17 08:12] LABS: CALCIUM 8.3 mg/dL (8.5-10.1); CREATININE 0.4 mg/dL (0.7-1.3); GFR 239.5; POTASSIUM 3.6 mmol/L (3.5-5.1)
[2021-01-17] MEDS: SENNOSIDES/DOCUSATE 8.6/50MG TABLET. PO SCH ×2 (09:00→20:40)
[2021-01-17] MEDS: DEXAMETHASONE SOD PHOS 4 MG/ML VIAL IVP SCH (09:00)
[2021-01-17] MEDS: ELECTROLYTE (ICU) PROTOCOL. MC SCH (09:00)
[2021-01-17] MEDS: ASCORBIC ACID 500 MG TABLET PO SCH ×2 (09:00→20:40)
--- NOTE | 2021-01-17 10:26 | PDOC ---
PULMONARY PROGRESS NOTES DATE: 01/17/21 TIME: 10:25 Subjective Remains on Vapotherm at 100% FiO2 and 40 L flow. Does not appear to be in any obvious respiratory distress. Vitals Vital Signs Date Time Temp Pulse Resp B/P (MAP) Pulse Ox O2 Delivery O2 Flow Rate FiO2 01/17/21 08:11 97 VAPOTHERM 40.0 01/17/21 06:00 96 22 119/78 (92) 01/17/21 04:00 98.9 98.9 Comments Patient seen during ID- pandemic, visual exam performed Regular rate and rhythm No distress No obvious rash or edema NO Accessory muscle use General: Alert, Oriented X4 Labs Laboratory Tests Test 01/15/21 12:51 01/15/21 17:28 01/15/21 20:17 01/16/21 05:15 Glucose (Fingerstick) 178 mg/dL (70-99) 148 mg/dL (70-99) 180 mg/dL (70-99) White Blood Count 10.1 x10^3/uL (4.0-11.0) Red Blood Count 4.16 x10^6/uL (4.30-5.70) Hemoglobin 13.2 g/dL (13.0-17.5) Hematocrit 38.8 % (39.0-53.0) Mean Corpuscular Volume 93 fL (79-100) Mean Corpuscular Hemoglobin 32 pg (25-35) Mean Corpuscular Hemoglobin Concent 34 g/dL (31-37) Red Cell Distribution Width 12.6 % (11.5-14.5) Platelet Count 264 x10^3/uL (140-400) Neutrophils (%) (Auto) 88 % (31-73) Lymphocytes (%) (Auto) 7 % (24-48) Monocytes (%) (Auto) 5 % (0-9) Eosinophils (%) (Auto) 0 % (0-3) Basophils (%) (Auto) 0 % (0-3) Neutrophils # (Auto) 8.8 x10^3/uL (1.8-7.7) Lymphocytes # (Auto) 0.7 x10^3/uL (1.0-4.8) Monocytes # (Auto) 0.5 x10^3/uL (0.0-1.1) Eosinophils # (Auto) 0.0 x10^3/uL (0.0-0.7) Basophils # (Auto) 0.0 x10^3/uL (0.0-0.2) Sodium Level 142 mmol/L (136-145) Potassium Level 3.4 mmol/L (3.5-5.1) Chloride Level 105 mmol/L (98-107) Carbon Dioxide Level 30 mmol/L (21-32) Anion Gap 7 (6-14) Blood Urea Nitrogen 9 mg/dL (8-26) Creatinine 0.4 mg/dL (0.7-1.3) Estimated GFR (Cockcroft-Gault) 239.5 Glucose Level 136 mg/dL (70-99) Calcium Level 8.4 mg/dL (8.5-10.1) Test 01/16/21 09:11 01/16/21 12:18 01/16/21 17:32 01/16/21 19:51 Glucose (Fingerstick) 117 mg/dL (70-99) 114 mg/dL (70-99) 164 mg/dL (70-99) 213 mg/dL (70-99) Test 01/17/21 07:35 White Blood Count 10.4 x10^3/uL (4.0-11.0) Red Blood Count 3.98 x10^6/uL (4.30-5.70) Hemoglobin 12.6 g/dL (13.0-17.5) Hematocrit 36.9 % (39.0-53.0) Mean Corpuscular Volume 93 fL (79-100) Mean Corpuscular Hemoglobin 32 pg (25-35) Mean Corpuscular Hemoglobin Concent 34 g/dL (31-37) Red Cell Distribution Width 12.3 % (11.5-14.5) Platelet Count 235 x10^3/uL (140-400) Neutrophils (%) (Auto) 88 % (31-73) Lymphocytes (%) (Auto) 5 % (24-48) Monocytes (%) (Auto) 5 % (0-9) Eosinophils (%) (Auto) 2 % (0-3) Basophils (%) (Auto) 0 % (0-3) Neutrophils # (Auto) 9.1 x10^3/uL (1.8-7.7) Lymphocytes # (Auto) 0.6 x10^3/uL (1.0-4.8) Monocytes # (Auto) 0.5 x10^3/uL (0.0-1.1) Eosinophils # (Auto) 0.2 x10^3/uL (0.0-0.7) Basophils # (Auto) 0.0 x10^3/uL (0.0-0.2) Sodium Level 140 mmol/L (136-145) Potassium Level 3.6 mmol/L (3.5-5.1) Chloride Level 102 mmol/L (98-107) Carbon Dioxide Level 29 mmol/L (21-32) Anion Gap 9 (6-14) Blood Urea Nitrogen 7 mg/dL (8-26) Creatinine 0.4 mg/dL (0.7-1.3) Estimated GFR (Cockcroft-Gault) 239.5 Glucose Level 113 mg/dL (70-99) Glucose (Fingerstick) 110 mg/dL (70-99) Calcium Level 8.3 mg/dL (8.5-10.1) Laboratory Tests Test 01/16/21 12:18 01/16/21 17:32 01/16/21 19:51 01/17/21 07:35 Glucose (Fingerstick) 114 mg/dL (70-99) 164 mg/dL (70-99) 213 mg/dL (70-99) 110 mg/dL (70-99) White Blood Count 10.4 x10^3/uL (4.0-11.0) Red Blood Count 3.98 x10^6/uL (4.30-5.70) Hemoglobin 12.6 g/dL (13.0-17.5) Hematocrit 36.9 % (39.0-53.0) Mean Corpuscular Volume 93 fL (79-100) Mean Corpuscular Hemoglobin 32 pg (25-35) Mean Corpuscular Hemoglobin Concent 34 g/dL (31-37) Red Cell Distribution Width 12.3 % (11.5-14.5) Platelet Count 235 x10^3/uL (140-400) Neutrophils (%) (Auto) 88 % (31-73) Lymphocytes (%) (Auto) 5 % (24-48) Monocytes (%) (Auto) 5 % (0-9) Eosinophils (%) (Auto) 2 % (0-3) Basophils (%) (Auto) 0 % (0-3) Neutrophils # (Auto) 9.1 x10^3/uL (1.8-7.7) Lymphocytes # (Auto) 0.6 x10^3/uL (1.0-4.8) Monocytes # (Auto) 0.5 x10^3/uL (0.0-1.1) Eosinophils # (Auto) 0.2 x10^3/uL (0.0-0.7) Basophils # (Auto) 0.0 x10^3/uL (0.0-0.2) Sodium Level 140 mmol/L (136-145) Potassium Level 3.6 mmol/L (3.5-5.1) Chloride Level 102 mmol/L (98-107) Carbon Dioxide Level 29 mmol/L (21-32) Anion Gap 9 (6-14) Blood Urea Nitrogen 7 mg/dL (8-26) Creatinine 0.4 mg/dL (0.7-1.3) Estimated GFR (Cockcroft-Gault) 239.5 Glucose Level 113 mg/dL (70-99) Calcium Level 8.3 mg/dL (8.5-10.1) Medications Active Scripts Medications Dose Route/Sig Max Daily Dose Days Date Category No Known Medications Prior To Admisstion (Info) Each 1 Each 1X 01/11/21 Reported Comments CTA chest IMPRESSION: 1. No evidence of central pulmonary embolism. The evaluation of distal branches of the pulmonary arteries is limited. 2. Numerous groundglass focal consolidation and airspace opacities identified throughout the bilateral lungs diffusely likely infiltrates or covid /viral pneumonia. Follow-up to resolution. Impression . IMPRESSION: 1. Acute hypoxic respiratory failure secondary to COVID-19 pneumonia, acute lung injury /acute respiratory distress syndrome. Oxygen requirement has increased. Currently on Vapotherm at 95% FiO2 and 40 L flow. We will monitor closely his respiratory status. 2. Abnormal chest x-ray with diffuse bilateral infiltrates consistent with COVID-19 pneumonia. 3. CTA chest with no evidence of pulmonary embolism. However, there are bilateral infiltrates consistent with viral pneumonia. 4. No significant tobacco history. 5. Unvaccinated for COVID-19. Plan . Updated 01/17/2021 Continue with present Vapotherm at 95% FiO2 and 40 L flow. He appears to be comfortable. No paradoxical breathing. We will watch his respiratory status closely. At this point he does not need to be intubated. Continue current remdesivir Continue dexamethasone Monitor off antibiotics MDI Encourage p.o. intake DVT/GI prophylaxis Discussed with RN and RT Will monitor respiratory status closely. At this point he does not need intubation. Have discussed with mother in detail. I did explain to her that he is critical but stable. Updated 01/16/2021 Continue with present Vapotherm at 100% FiO2 and 40 L flow. He appears to be comfortable. No paradoxical breathing. We will watch his respiratory status closely. At this point he does not need to be intubated. Continue current remdesivir Continue dexamethasone Monitor off antibiotics MDI Encourage p.o. intake DVT/GI prophylaxis Discussed with RN and RT Will monitor respiratory status closely. At this point he does not need intubation. Updated 01/15/2021 Continue with present Vapotherm at 100% FiO2 and 40 L flow. He appears to be comfortable. No paradoxical breathing. We will watch his respiratory status closely. At this point he does not need to be intubated. Continue current remdesivir Continue dexamethasone Monitor off antibiotics MDI Encourage p.o. intake DVT/GI prophylaxis Discussed with RN and RT Will monitor respiratory status closely. At this point he does not need intubation. Updated 01/14/2021 Continue with present Vapotherm at 90% FiO2 and 30 L flow. Continue with additional nonrebreather mask. He appears to be comfortable. No paradoxical breathing. We will watch his respiratory status closely. At this point he does not need to be intubated. Continue current remdesivir Continue dexamethasone Monitor off antibiotics MDI Encourage p.o. intake DVT/GI prophylaxis Discussed with RN and RT Will monitor respiratory status closely. At this point he does not need intubation. Critical care time 30 minutes Updated 01/13/2021 Continue with present Vapotherm at 90% FiO2 and 30 L flow. Continue with additional nonrebreather mask. He appears to be comfortable. No paradoxical breathing. We will watch his respiratory status closely. At this point he does not need to be intubated. Continue current remdesivir Continue dexamethasone Monitor off antibiotics MDI Encourage p.o. intake DVT/GI prophylaxis Discussed with RN and RT Critical care time 30 minutes Updated 01/12/2021 Continue supplemental oxygen to keep oxygen saturations greater than 92%, currently on Vapotherm 25 L and 80% Continue current remdesivir Continue dexamethasone Monitor off antibiotics MDI Encourage p.o. intake DVT/GI prophylaxis Discussed with RN and RT RECOMMENDATIONS: 01/11/21 1. Continue with present Vapotherm at 80% FIO2 and 25 liters. 2. We will follow ABGs and oxygen saturations and make further decisions. 3. Remdesivir is initiated. 4. Continue dexamethasone. 5. Continue nebulizer. 6. Lovenox for DVT prophylaxis. 7. Discussed with the patient and RN. NIYAH DUARTE MD Jan 17, 2021 10:26
[2021-01-17] MEDS: guaiFENesin ORAL 200 MG/10 ML LIQUID. PO PRN ×2 (10:28→23:53)
[2021-01-17] MEDS: oxyCODONE/APAP 5/325 1 TAB TABLET PO PRN (10:28)
--- NOTE | 2021-01-17 12:57 | PDOC ---
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 Patient went to urgent care because over the past week he had been having a cough, overall fatigue and weakness, dyspnea with exertion, intermittent chest pain, fevers, decreased p.o. intake. Patient denied any sick contacts. He is not a smoker. He did not receive the Covid vaccine. Upon arrival to the emergency room he was placed on 6 L of oxygen and saturations increased to 82%. Nonrebreather was tried however this did not really increase his oxygen saturations and by the time I went to evaluate him he was on continuous BiPAP with saturations in the low 90s. Patient admitting to ICU due to concern for respiratory status given Covid infection and possible need for mechanical ventilation. When evaluated in the emergency room patient was able to gesture that he was feeling somewhat better however was still having shortness of breath and cough. He was also reporting headache. Otherwise no major complaints. 01/16/2021: Afebrile, breathing Vapotherm 40 L at FiO2 100%. Tachypneic. Will monitor off antibiotics. Completed remdesivir. Continue Decadron and supportive care. 30 minutes critical care time spent reviewing charts, reviewing labs, discussion with RN. 01/15/2021: Afebrile, tachypnea, breathing Vapotherm 40 L. Reports family history of DM2. Hemoglobin A1c 13.4; DM2 is new diagnosis and he will need to discharge on appropriate medications. Continue treatment with Decadron, antibiotics, regarding supportive care. 01/14/2021: Afebrile, tachypneic. Breathing 40 L Vapotherm. Still with nonprod uctive cough. CBG 332 overnight. Will increase basal/prandial insulin. Continue treatment with remdesivir day 4/5. Continue steroids and supportive care. Hemoglobin A1c pending. Critical care time 30 minutes spent reviewing labs, reviewing charts, reviewing imaging, discussion with RN. 01/13/2021: Afebrile, breathing on Vapotherm at 30 L, FiO2 90%. No acute events overnight, patient has no complaints. Dry cough noted on exam. Continue treatment with remdesivir day 3/. Continue steroids and supportive care. Still with some hyperglycemia; hemoglobin A1c pending. 30 minutes critical care time spent reviewing labs, reviewing charts, reviewing imaging, discussion with RN. 01/12/2021: Patient seen in ICU. Afebrile, tachycardic, breathing on 25 L Vapoth erm. No complaints today; concerned about medical leave from job. Concern for some persistent hypoglycemia; will adjust insulin and check hemoglobin A1c. Continue treatment with remdesivir and steroids. 30 minutes critical care time spent reviewing charts, doing labs, urine imaging, and discussion with RN. Vitals/I&O Vitals/I&O: Vital Signs Date Time Temp Pulse Resp B/P (MAP) Pulse Ox O2 Delivery O2 Flow Rate FiO2 01/17/21 11:44 97 VAPOTHERM 40.0 01/17/21 10:28 28 01/17/21 06:00 96 119/78 (92) 01/17/21 04:00 98.9 98.9 I & O 01/16/21 01/16/21 01/17/21 15:00 23:00 07:00 Intake Total 800 ml 1220 ml 1400 ml Output Total 1850 ml 650 ml 850 ml Balance -1050 ml 570 ml 550 ml Physical Exam General: mild distress, Other (Weak and depressed) Heart: Other (Tachycardic) Abdomen: No hepatosplenomegaly, No masses Extremities: No clubbing, No cyanosis Skin: No rashes, No breakdown Labs Labs: Laboratory Tests Test 01/16/21 17:32 01/16/21 19:51 01/17/21 07:35 Glucose (Fingerstick) 164 mg/dL (70-99) 213 mg/dL (70-99) 110 mg/dL (70-99) White Blood Count 10.4 x10^3/uL (4.0-11.0) Red Blood Count 3.98 x10^6/uL (4.30-5.70) Hemoglobin 12.6 g/dL (13.0-17.5) Hematocrit 36.9 % (39.0-53.0) Mean Corpuscular Volume 93 fL (79-100) Mean Corpuscular Hemoglobin 32 pg (25-35) Mean Corpuscular Hemoglobin Concent 34 g/dL (31-37) Red Cell Distribution Width 12.3 % (11.5-14.5) Platelet Count 235 x10^3/uL (140-400) Neutrophils (%) (Auto) 88 % (31-73) Lymphocytes (%) (Auto) 5 % (24-48) Monocytes (%) (Auto) 5 % (0-9) Eosinophils (%) (Auto) 2 % (0-3) Basophils (%) (Auto) 0 % (0-3) Neutrophils # (Auto) 9.1 x10^3/uL (1.8-7.7) Lymphocytes # (Auto) 0.6 x10^3/uL (1.0-4.8) Monocytes # (Auto) 0.5 x10^3/uL (0.0-1.1) Eosinophils # (Auto) 0.2 x10^3/uL (0.0-0.7) Basophils # (Auto) 0.0 x10^3/uL (0.0-0.2) Sodium Level 140 mmol/L (136-145) Potassium Level 3.6 mmol/L (3.5-5.1) Chloride Level 102 mmol/L (98-107) Carbon Dioxide Level 29 mmol/L (21-32) Anion Gap 9 (6-14) Blood Urea Nitrogen 7 mg/dL (8-26) Creatinine 0.4 mg/dL (0.7-1.3) Estimated GFR (Cockcroft-Gault) 239.5 Glucose Level 113 mg/dL (70-99) Calcium Level 8.3 mg/dL (8.5-10.1) Assessment and Plan Assessmemt and Plan Input note long-term appreciate subspecialist inputProblems Medical Problems: (1) Hypoxia Status: Acute (2) Person under investigation for COVID-19 Status: Acute (3) Pneumonia Status: Acute Acute hypoxic respiratory failure secondary to COVID-19 pneumonia New DM2 hyperglycemia Severe malnutrition Plan Vapotherm ICU monitoring Covid protocol Trend labs Home meds DVT prophylaxis Full code Appreciate subspecialist input Prognosis guarded CC time 31 minutes Comment Review of Relevant I have reviewed the following items teresa (where applicable) has been applied. Justifications for Admission Other Justification SCARLETT MCKEON III DO Jan 17, 2021 12:57
[2021-01-17] MEDS: INSULIN LISPRO 300 UNITS/3 ML VIAL. SQ SCH ×4 (13:16→21:04)
--- NOTE | 2021-01-17 15:29 | NUR ---
SS following up with discharge planning. SS reviewed pt chart and discussed with pt RN. Pt is currently on Vapotherm. COVID19 positive. Pt on IV Decadron. SS will continue to follow for discharge planning.
[2021-01-17] MEDS: ENOXAPARIN 40 MG/0.4 ML SYRINGE. SQ SCH (17:12)
[2021-01-17] MEDS ORDERED: INSULIN LISPRO 300 UNITS/3 ML VIAL. SQ SCH (18:00)
[2021-01-17] MEDS: INSULIN GLARGINE SYRINGE. SQ SCH (20:41)
[2021-01-18] VITALS (24 sets, daily range): BP systolic 94–158; BP diastolic 50–90
[2021-01-18] MEDS: guaiFENesin ORAL 200 MG/10 ML LIQUID. PO PRN ×2 (03:59→20:49)
--- NOTE | 2021-01-18 07:28 | PDOC ---
PULMONARY PROGRESS NOTES DATE: 01/18/21 TIME: 07:28 Subjective Patient awake alert following commands no respiratory distress On 40 L flow, down to 75% FiO2 Vitals Vital Signs Date Time Temp Pulse Resp B/P (MAP) Pulse Ox O2 Delivery O2 Flow Rate FiO2 01/18/21 06:00 82 30 104/64 (77) 95 Vapotherm 40.0 01/18/21 04:00 97.7 97.7 Comments Patient seen during , visual exam performed Regular rate and rhythm No distress No obvious rash or edema NO Accessory muscle use General: Alert Labs Laboratory Tests Test 01/16/21 09:11 01/16/21 12:18 01/16/21 17:32 01/16/21 19:51 Glucose (Fingerstick) 117 mg/dL (70-99) 114 mg/dL (70-99) 164 mg/dL (70-99) 213 mg/dL (70-99) Test 01/17/21 07:35 01/17/21 13:16 01/17/21 17:48 01/17/21 20:46 White Blood Count 10.4 x10^3/uL (4.0-11.0) Red Blood Count 3.98 x10^6/uL (4.30-5.70) Hemoglobin 12.6 g/dL (13.0-17.5) Hematocrit 36.9 % (39.0-53.0) Mean Corpuscular Volume 93 fL (79-100) Mean Corpuscular Hemoglobin 32 pg (25-35) Mean Corpuscular Hemoglobin Concent 34 g/dL (31-37) Red Cell Distribution Width 12.3 % (11.5-14.5) Platelet Count 235 x10^3/uL (140-400) Neutrophils (%) (Auto) 88 % (31-73) Lymphocytes (%) (Auto) 5 % (24-48) Monocytes (%) (Auto) 5 % (0-9) Eosinophils (%) (Auto) 2 % (0-3) Basophils (%) (Auto) 0 % (0-3) Neutrophils # (Auto) 9.1 x10^3/uL (1.8-7.7) Lymphocytes # (Auto) 0.6 x10^3/uL (1.0-4.8) Monocytes # (Auto) 0.5 x10^3/uL (0.0-1.1) Eosinophils # (Auto) 0.2 x10^3/uL (0.0-0.7) Basophils # (Auto) 0.0 x10^3/uL (0.0-0.2) Sodium Level 140 mmol/L (136-145) Potassium Level 3.6 mmol/L (3.5-5.1) Chloride Level 102 mmol/L (98-107) Carbon Dioxide Level 29 mmol/L (21-32) Anion Gap 9 (6-14) Blood Urea Nitrogen 7 mg/dL (8-26) Creatinine 0.4 mg/dL (0.7-1.3) Estimated GFR (Cockcroft-Gault) 239.5 Glucose Level 113 mg/dL (70-99) Glucose (Fingerstick) 110 mg/dL (70-99) 172 mg/dL (70-99) 273 mg/dL (70-99) 206 mg/dL (70-99) Calcium Level 8.3 mg/dL (8.5-10.1) Laboratory Tests Test 01/17/21 07:35 01/17/21 13:16 01/17/21 17:48 01/17/21 20:46 White Blood Count 10.4 x10^3/uL (4.0-11.0) Red Blood Count 3.98 x10^6/uL (4.30-5.70) Hemoglobin 12.6 g/dL (13.0-17.5) Hematocrit 36.9 % (39.0-53.0) Mean Corpuscular Volume 93 fL (79-100) Mean Corpuscular Hemoglobin 32 pg (25-35) Mean Corpuscular Hemoglobin Concent 34 g/dL (31-37) Red Cell Distribution Width 12.3 % (11.5-14.5) Platelet Count 235 x10^3/uL (140-400) Neutrophils (%) (Auto) 88 % (31-73) Lymphocytes (%) (Auto) 5 % (24-48) Monocytes (%) (Auto) 5 % (0-9) Eosinophils (%) (Auto) 2 % (0-3) Basophils (%) (Auto) 0 % (0-3) Neutrophils # (Auto) 9.1 x10^3/uL (1.8-7.7) Lymphocytes # (Auto) 0.6 x10^3/uL (1.0-4.8) Monocytes # (Auto) 0.5 x10^3/uL (0.0-1.1) Eosinophils # (Auto) 0.2 x10^3/uL (0.0-0.7) Basophils # (Auto) 0.0 x10^3/uL (0.0-0.2) Sodium Level 140 mmol/L (136-145) Potassium Level 3.6 mmol/L (3.5-5.1) Chloride Level 102 mmol/L (98-107) Carbon Dioxide Level 29 mmol/L (21-32) Anion Gap 9 (6-14) Blood Urea Nitrogen 7 mg/dL (8-26) Creatinine 0.4 mg/dL (0.7-1.3) Estimated GFR (Cockcroft-Gault) 239.5 Glucose Level 113 mg/dL (70-99) Glucose (Fingerstick) 110 mg/dL (70-99) 172 mg/dL (70-99) 273 mg/dL (70-99) 206 mg/dL (70-99) Calcium Level 8.3 mg/dL (8.5-10.1) Medications Active Scripts Medications Dose Route/Sig Max Daily Dose Days Date Category No Known Medications Prior To Admisstion (Info) Each 1 Each 1X 01/11/21 Reported Comments CTA chest IMPRESSION: 1. No evidence of central pulmonary embolism. The evaluation of distal branches of the pulmonary arteries is limited. 2. Numerous groundglass focal consolidation and airspace opacities identified throughout the bilateral lungs diffusely likely infiltrates or covid /viral pneumonia. Follow-up to resolution. Impression . IMPRESSION: 1. Acute hypoxic respiratory failure secondary to COVID-19 pneumonia, acute lung injury /acute respiratory distress syndrome. 2. Abnormal chest x-ray with diffuse bilateral infiltrates consistent with COVID-19 pneumonia. 3. CTA chest with no evidence of pulmonary embolism. However, there are bilateral infiltrates consistent with viral pneumonia. 4. No significant tobacco history. 5. Unvaccinated for COVID-19. Plan . Updated 01/18 Patient's oxygen requirements have decreased On visual inspection no significant respiratory distress Continue dexamethasone Status post remdesivir Monitor off of antibiotics DVT GI prophylaxis Transfer out of the ICU once O2 requirements decrease Updated 01/17/2021 Continue with present Vapotherm at 95% FiO2 and 40 L flow. He appears to be comfortable. No paradoxical breathing. We will watch his respiratory status closely. At this point he does not need to be intubated. Continue current remdesivir Continue dexamethasone Monitor off antibiotics MDI Encourage p.o. intake DVT/GI prophylaxis Discussed with RN and RT Will monitor respiratory status closely. At this point he does not need intubation. Have discussed with mother in detail. I did explain to her that he is critical but stable. BHAVANI POE MD Jan 18, 2021 07:28
[2021-01-18] MEDS: IPRATROPIUM/ALBUTEROL 20/100mcg/INH INHALER. INH SCH ×4 (08:00→20:35)
[2021-01-18] MEDS: FAMOTIDINE 20 MG TABLET. PO SCH ×2 (08:32→20:34)
[2021-01-18] MEDS: ASCORBIC ACID 500 MG TABLET PO SCH ×2 (08:33→20:34)
[2021-01-18] MEDS: DEXAMETHASONE SOD PHOS 4 MG/ML VIAL IVP SCH ×2 (08:33→08:55)
[2021-01-18] MEDS: SENNOSIDES/DOCUSATE 8.6/50MG TABLET. PO SCH ×2 (08:34→20:34)
[2021-01-18] MEDS: INSULIN LISPRO 300 UNITS/3 ML VIAL. SQ SCH ×7 (08:51→20:47)
[2021-01-18] MEDS: ELECTROLYTE (ICU) PROTOCOL. MC SCH (09:00)
--- NOTE | 2021-01-18 12:03 | PDOC ---
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 Patient went to urgent care because over the past week he had been having a cough, overall fatigue and wea kness, dyspnea with exertion, intermittent chest pain, fevers, decreased p.o. intake. Patient denied any sick contacts. He is not a smoker. He did not receive the Covid vaccine. Upon arrival to the emergency room he was placed on 6 L of oxygen and satur ations increased to 82%. Nonrebreather was tried however this did not really increase his oxygen saturations and by the time I went to evaluate him he was on continuous BiPAP with saturations in the low 90s. Patient admitting to ICU due to concern for respiratory status given Covid infection and possible need for mechanical ventilation. When evaluated in the emergency room patient was able to gesture that he was feeling somewhat better however was still having shortness of breath and cough. He was also reporting headache. Otherwise no major complaints. 01/16/2021: Afebrile, breathing Vapotherm 40 L at FiO2 100%. Tachypneic. Will monitor off antibiotics. Completed remdesivir. Continue Decadron and supportive care. 30 minutes critical care time spent reviewing charts, reviewing labs, discussion with RN. 01/15/2021: Afebrile, tachypnea, breathing Vapotherm 40 L. Reports family history of DM2. Hemoglobin A1c 13.4; DM2 is new diagnosis and he will need to discharge on appropriate medications. Continue treatment with Decadron, antibiotics, regarding supportive care. 01/14/2021: Afebrile, tachypneic. Breathing 40 L Vapotherm. Still with nonproductive cough. CBG 332 overnight. Will increase basal/prandial insulin. Continue treatment with remdesivir day 4/5. Continue steroids and supportive care. Hemoglobin A1c pending. Critical care time 30 minutes spent reviewing labs, reviewing charts, reviewing imaging, discussion with RN. 01/13/2021: Afebrile, breathing on Vapotherm at 30 L, FiO2 90%. No acute events overnight, patient has no complaints. Dry cough noted on exam. Continue treatment with remdesivir day 3/5. Continue steroids and supportive care. Still with some hyperglycemia; hemoglobin A1c pending. 30 minutes critical care time spent reviewing labs, reviewing charts, reviewing imaging, discussion with RN. 01/12/2021: Patient seen in ICU. Afebrile, tachycardic, breathing on 25 L Vapotherm. No complaints today; concerned about medical leave from job. Concern for some persistent hypoglycemia; will adjust insulin and check hemoglobin A1c. Continue treatment with remdesivir and steroids. 30 minutes critical care time spent reviewing charts, doing labs, urine imaging, and discussion with RN. Vitals/I&O Vitals/I&O: Vital Signs Date Time Temp Pulse Resp B/P (MAP) Pulse Ox O2 Delivery O2 Flow Rate FiO2 01/18/21 11:33 96 VAPOTHERM 40.0 01/18/21 06:00 82 30 104/64 (77) 01/18/21 04:00 97.7 97.7 I & O 01/17/21 01/17/21 01/18/21 15:00 23:00 07:00 Intake Total 720 ml 1980 ml 2870 ml Output Total 1250 ml 1500 ml 1300 ml Balance -530 ml 480 ml 1570 ml Physical Exam General: mild distress, Other (Weak and depressed) Heart: Other (Tachycardic) Abdomen: No hepatosplenomegaly, No masses Extremities: No clubbing, No cyanosis Skin: No rashes, No breakdown Labs Labs: Laboratory Tests Test 01/17/21 13:16 01/17/21 17:48 01/17/21 20:46 01/18/21 08:41 Glucose (Fingerstick) 172 mg/dL (70-99) 273 mg/dL (70-99) 206 mg/dL (70-99) 188 mg/dL (70-99) Assessment and Plan Assessmemt and Plan Problems Medical Problems: (1) Hypoxia Status: Acute (2) Person under investigation for COVID-19 Status: Acute (3) Pneumonia Status: Acute Acute hypoxic respiratory failure secondary to COVID-19 pneumonia New DM2 hyperglycemia Severe malnutrition Plan Vapotherm ICU monitoring Covid protocol Trend labs Home meds DVT prophylaxis Full code Appreciate subspecialist input Prognosis guarded Comment Review of Relevant I have reviewed the following items teresa (where applicable) has been applied. Medications: Current Medications Medications (Trade) Dose Ordered Sig/Dutch Route PRN Reason Start Time Stop Time Status Last Admin Dose Admin Insulin Human Lispro (HumaLOG) 0-7 UNITS TIDWMEALS SQ 01/17/21 18:00 01/17/21 21:00 DC 01/17/21 17:54 Insulin Human Lispro (HumaLOG) 8 units TIDWMEALS SQ 01/17/21 18:00 01/18/21 08:52 Insulin Human Lispro (HumaLOG) 0-7 UNITS QIDACHS SQ 01/17/21 21:00 01/18/21 08:51 Justifications for Admission Other Justification SCARLETT MCKEON III DO Jan 18, 2021 12:03
[2021-01-18] MEDS: STERILE WATER for RESP 1,000 ML BAG. INH PRN (15:57)
[2021-01-18] MEDS: ENOXAPARIN 40 MG/0.4 ML SYRINGE. SQ SCH (17:03)
[2021-01-18] MEDS: IV NORMAL SALINE 1000ML BAG 1,000 ML IV SCH ×3 (17:16→23:33)
[2021-01-18] MEDS: INSULIN GLARGINE SYRINGE. SQ SCH (20:34)
[2021-01-19] VITALS (15 sets, daily range): BP systolic 101–140; BP diastolic 62–88
[2021-01-19] MEDS: guaiFENesin ORAL 200 MG/10 ML LIQUID. PO PRN (03:45)
[2021-01-19] MEDS: IPRATROPIUM/ALBUTEROL 20/100mcg/INH INHALER. INH SCH ×4 (08:00→21:17)
[2021-01-19] MEDS: IV NORMAL SALINE 1000ML BAG 1,000 ML IV SCH ×2 (08:41→16:53)
[2021-01-19] MEDS: FAMOTIDINE 20 MG TABLET. PO SCH ×2 (08:42→21:15)
[2021-01-19] MEDS: SENNOSIDES/DOCUSATE 8.6/50MG TABLET. PO SCH ×2 (08:42→21:15)
[2021-01-19] MEDS: ASCORBIC ACID 500 MG TABLET PO SCH ×2 (08:42→21:15)
[2021-01-19] MEDS: DEXAMETHASONE SOD PHOS 4 MG/ML VIAL IVP SCH (08:44)
[2021-01-19] MEDS: ELECTROLYTE (ICU) PROTOCOL. MC SCH (09:00)
--- NOTE | 2021-01-19 09:02 | PDOC ---
PULMONARY PROGRESS NOTES DATE: 01/19/21 TIME: 09:02 Subjective Patient's oxygen requirements have greatly decreased no respiratory complaints Vitals Vital Signs Date Time Temp Pulse Resp B/P (MAP) Pulse Ox O2 Delivery O2 Flow Rate FiO2 01/19/21 07:00 86 28 116/81 (93) 96 Vapotherm 30.0 01/19/21 04:00 97.6 97.6 Comments Patient seen during COVID pandemic, visual exam performed Regular rate and rhythm No distress No obvious rash or edema NO Accessory muscle use General: Alert Labs Laboratory Tests Test 01/17/21 13:16 01/17/21 17:48 01/17/21 20:46 01/18/21 08:41 Glucose (Fingerstick) 172 mg/dL (70-99) 273 mg/dL (70-99) 206 mg/dL (70-99) 188 mg/dL (70-99) Test 01/18/21 12:40 01/18/21 17:21 01/18/21 20:39 01/19/21 08:49 Glucose (Fingerstick) 233 mg/dL (70-99) 247 mg/dL (70-99) 213 mg/dL (70-99) 236 mg/dL (70-99) Laboratory Tests Test 01/18/21 12:40 01/18/21 17:21 01/18/21 20:39 01/19/21 08:49 Glucose (Fingerstick) 233 mg/dL (70-99) 247 mg/dL (70-99) 213 mg/dL (70-99) 236 mg/dL (70-99) Medications Active Scripts Medications Dose Route/Sig Max Daily Dose Days Date Category No Known Medications Prior To Admisstion (Info) Each 1 Each 1X 01/11/21 Reported Comments CTA chest IMPRESSION: 1. No evidence of central pulmonary embolism. The evaluation of distal branches of the pulmonary arteries is limited. 2. Numerous groundglass focal consolidation and airspace opacities identified throughout the bilateral lungs diffusely likely infiltrates or covid /viral pneumonia. Follow-up to resolution. Impression . IMPRESSION: 1. Acute hypoxic respiratory failure secondary to COVID-19 pneumonia, acute lung injury /acute respiratory distress syndrome. 2. Abnormal chest x-ray with diffuse bilateral infiltrates consistent with COVID-19 pneumonia. 3. CTA chest with no evidence of pulmonary embolism. However, there are bilateral infiltrates consistent with viral pneumonia. 4. No significant tobacco history. 5. Unvaccinated for COVID-19. Plan . Updated 01/19 Transfer out of the ICU Continue dexamethasone Finish course of remdesivir Monitor off of antibiotics DVT GI prophylaxis updated 01/18 Patient's oxygen requirements have decreased On visual inspection no significant respiratory distress Continue dexamethasone Status post remdesivir Monitor off of antibiotics DVT GI prophylaxis Transfer out of the ICU once O2 requirements decrease Updated 01/17/2021 Continue with present Vapotherm at 95% FiO2 and 40 L flow. He appears to be comfortable. No paradoxical breathing. We will watch his respiratory status closely. At this point he does not need to be intubated. Continue current remdesivir Continue dexamethasone Monitor off antibiotics MDI Encourage p.o. intake DVT/GI prophylaxis Discussed with RN and RT Will monitor respiratory status closely. At this point he does not need intubation. Have discussed with mother in detail. I did explain to her that he is critical but stable. BHAVANI POE MD Jan 19, 2021 09:02
[2021-01-19] MEDS: INSULIN LISPRO 300 UNITS/3 ML VIAL. SQ SCH ×7 (09:09→21:15)
--- NOTE | 2021-01-19 11:43 | PDOC ---
[facility] PROGRESS NOTE Date of Service DOS: DATE: 01/19/21 TIME: 11:42 Chief Complaint Chief Complaint Acute hypoxic respiratory failure secondary to COVID-19 pneumonia New DM2 hyperglycemia Severe malnutrition History of Present Illness History of Present Illness 01/19/2021 Patient seen and examined in the ICU He is on Vapotherm at 30 L with 60% FiO2 Discussed with RN Chart reviewed He is slowly improving but still very ill 01/18/2021 Patient seen and examined in the COVID-19 ICU He is currently on Vapotherm at 40 L with 75% FiO2 Chart reviewed Discussed with RN 01/17/2021 Patient seen and examined in the ICU He is on Vapotherm Appears depressed and extremely weak Discussed with agency sales management assistant Chart reviewed Discussed with RN He remains extremely ill Patient is a 40-year-old male without any reported past medical history presented to the emergency room today from urgent care where he was found to have an oxygen saturation of 76% on room air there. Patient went to urgent care because over the past week he had been having a cough, overall fatigue and weakness, dyspnea with exertion, intermittent chest pain, fevers, decreased p.o. intake. Patient denied any sick contacts. He is not a smoker. He did not receive the Covid vaccine. Upon arrival to the emergency room he was placed on 6 L of oxygen and saturations increased to 82%. Nonrebreather was tried however this did not really increase his oxygen saturations and by the time I went to evaluate him he was on continuous BiPAP with saturations in the low 90s. Patient admitting to ICU due to concern for respiratory status given Covid infection and possible need for mechanical ventilation. When evaluated in the emergency room patient was able to gesture that he was feeling somewhat better however was still having shortness of breath and cough. He was also reporting headache. Otherwise no major complaints. 01/16/2021: Afebrile, breathing Vapotherm 40 L at FiO2 100%. Tachypneic. Will monitor off antibiotics. Completed remdesivir. Continue Decadron and supportive care. 30 minutes critical care time spent reviewing charts, reviewing labs, discussion with RN. 01/15/2021: Afebrile, tachypnea, breathing Vapotherm 40 L. Reports family history of DM2. Hemoglobin A1c 13.4; DM2 is new diagnosis and he will need to discharge on appropriate medications. Continue treatment with Decadron, antibiotics, regarding supportive care. 01/14/2021: Afebrile, tachypneic. Breathing 40 L Vapotherm. Still with nonproductive cough. CBG 332 overnight. Will increase basal/prandial insulin. Continue treatment with remdesivir day 4/5. Continue steroids and supportive care. Hemoglobin A1c pending. Critical care time 30 minutes spent reviewing labs, reviewing charts, reviewing imaging, discussion with RN. 01/13/2021: Afebrile, breathing on Vapotherm at 30 L, FiO2 90%. No acute events overnight, patient has no complaints. Dry cough noted on exam. Continue treatment with remdesivir day 3/5. Continue steroids and supportive care. Still with some hyperglycemia; hemoglobin A1c pending. 30 minutes critical care time spent reviewing labs, reviewing charts, reviewing imaging, discussion with RN. 01/12/2021: Patient seen in ICU. Afebrile, tachycardic, breathing on 25 L Vapotherm. No complaints today; concerned about medical leave from job. Concern for some persistent hypoglycemia; will adjust insulin and check hemoglobin A1c. Continue treatment with remdesivir and steroids. 30 minutes critical care time spent reviewing charts, doing labs, urine imaging, and discussion with RN. Vitals/I&O Vitals/I&O: Vital Signs Date Time Temp Pulse Resp B/P (MAP) Pulse Ox O2 Delivery O2 Flow Rate FiO2 01/19/21 10:22 High Flow Nasal Cannula 12.0 01/19/21 10:00 92 31 133/75 (94) 93 01/19/21 08:00 98.0 98.0 I & O 01/18/21 01/18/21 01/19/21 15:00 23:00 07:00 Intake Total 790 ml 2631 ml 840 ml Output Total 2250 ml 1750 ml 1250 ml Balance -1460 ml 881 ml -410 ml Physical Exam General: mild distress, Other (Weak and depressed) Heart: Other (Tachycardic) Abdomen: No hepatosplenomegaly, No masses Extremities: No clubbing, No cyanosis Skin: No rashes, No breakdown Labs Labs: Laboratory Tests Test 01/18/21 12:40 01/18/21 17:21 01/18/21 20:39 01/19/21 08:49 Glucose (Fingerstick) 233 mg/dL (70-99) 247 mg/dL (70-99) 213 mg/dL (70-99) 236 mg/dL (70-99) Assessment and Plan Assessmemt and Plan Problems Medical Problems: (1) Hypoxia Status: Acute (2) Person under investigation for COVID-19 Status: Acute (3) Pneumonia Status: Acute Acute hypoxic respiratory failure secondary to COVID-19 pneumonia New DM2 hyperglycemia Severe malnutrition Plan Hope to transfer out of ICU later today Weaning off Vapotherm Vapotherm Covid protocol Trend labs Home meds DVT prophylaxis Full code Appreciate subspecialist input Prognosis guarded Comment Review of Relevant I have reviewed the following items teresa (where applicable) has been applied. Justifications for Admission Other Justification SCARLETT MCKEON III DO Jan 19, 2021 11:43
--- NOTE | 2021-01-19 14:59 | NUR ---
SS following up with discharge planning. SS reviewed pt chart and discussed with pt RN. Pt is currently on high flow nasal canula oxygen at 12 liters. COVID19 positive. Pt on IV Decadron. Transfer order on the chart. SS will continue to follow for discharge planning.
[2021-01-19] MEDS: ENOXAPARIN 40 MG/0.4 ML SYRINGE. SQ SCH (15:58)
--- NOTE | 2021-01-19 18:45 | NUR ---
Received patient approximately 1645, agree with prior nursing assessment of patient's current condition with the exception that patient is now on 10L of O2 via high flow nasal cannula. Will continue to monitor.
[2021-01-19] MEDS: INSULIN GLARGINE SYRINGE. SQ SCH (21:17)
[2021-01-20] MEDS: IV NORMAL SALINE 1000ML BAG 1,000 ML IV SCH ×3 (01:05→16:55)
[2021-01-20] MEDS: guaiFENesin ORAL 200 MG/10 ML LIQUID. PO PRN ×2 (01:12→20:55)
[2021-01-20 03:00] VITALS: BP 128/81
[2021-01-20] MEDS: oxyCODONE/APAP 5/325 1 TAB TABLET PO PRN (04:37)
[2021-01-20 07:00] VITALS: BP 126/74
[2021-01-20] MEDS: ELECTROLYTE (ICU) PROTOCOL. MC SCH (07:47)
[2021-01-20] MEDS: SENNOSIDES/DOCUSATE 8.6/50MG TABLET. PO SCH ×2 (08:27→20:55)
[2021-01-20] MEDS: ASCORBIC ACID 500 MG TABLET PO SCH ×2 (08:27→20:55)
[2021-01-20] MEDS: FAMOTIDINE 20 MG TABLET. PO SCH ×2 (08:27→20:55)
[2021-01-20] MEDS: DEXAMETHASONE SOD PHOS 4 MG/ML VIAL IVP SCH (08:29)
[2021-01-20] MEDS: IPRATROPIUM/ALBUTEROL 20/100mcg/INH INHALER. INH SCH ×4 (08:29→20:55)
[2021-01-20] MEDS: INSULIN LISPRO 300 UNITS/3 ML VIAL. SQ SCH ×7 (08:35→20:57)
--- NOTE | 2021-01-20 08:42 | PDOC ---
PULMONARY PROGRESS NOTES DATE: 01/20/21 TIME: 08:42 Subjective Patient's remains on 10 liters NC afebrile feeling better today Vitals Vital Signs Date Time Temp Pulse Resp B/P (MAP) Pulse Ox O2 Delivery O2 Flow Rate FiO2 01/20/21 07:34 Nasal Cannula 10.0 01/20/21 03:00 97.9 83 18 128/81 (97) 96 97.9 Comments Patient seen during ID pandemic, visual exam performed Regular rate and rhythm No distress No obvious rash or edema NO Accessory muscle use General: Alert Labs Laboratory Tests Test 01/18/21 12:40 01/18/21 17:21 01/18/21 20:39 01/19/21 08:49 Glucose (Fingerstick) 233 mg/dL (70-99) 247 mg/dL (70-99) 213 mg/dL (70-99) 236 mg/dL (70-99) Test 01/19/21 12:01 01/19/21 16:48 01/19/21 20:17 01/20/21 08:00 Glucose (Fingerstick) 242 mg/dL (70-99) 219 mg/dL (70-99) 225 mg/dL (70-99) 179 mg/dL (70-99) Laboratory Tests Test 01/19/21 08:49 01/19/21 12:01 01/19/21 16:48 01/19/21 20:17 Glucose (Fingerstick) 236 mg/dL (70-99) 242 mg/dL (70-99) 219 mg/dL (70-99) 225 mg/dL (70-99) Test 01/20/21 08:00 Glucose (Fingerstick) 179 mg/dL (70-99) Medications Active Scripts Medications Dose Route/Sig Max Daily Dose Days Date Category No Known Medications Prior To Admisstion (Info) Each 1 Each 1X 01/11/21 Reported Comments CTA chest IMPRESSION: 1. No evidence of central pulmonary embolism. The evaluation of distal branches of the pulmonary arteries is limited. 2. Numerous groundglass focal consolidation and airspace opacities identified throughout the bilateral lungs diffusely likely infiltrates or covid /viral pneumonia. Follow-up to resolution. Impression . IMPRESSION: 1. Acute hypoxic respiratory failure secondary to COVID-19 pneumonia, acute lung injury /acute respiratory distress syndrome. 2. Abnormal chest x-ray with diffuse bilateral infiltrates consistent with COVID-19 pneumonia. 3. CTA chest with no evidence of pulmonary embolism. However, there are bilateral infiltrates consistent with viral pneumonia. 4. No significant tobacco history. 5. Unvaccinated for COVID-19. Plan . Updated 01/20/21 Continue supplemental oxygen to keep sats above 92% on 10 liters NC Follow CXR PRN Status post remdesivir Continue steroids with slow taper DM per PCP DVT/GI PPX D/W RN Updated 01/19 Transfer out of the ICU Continue dexamethasone Finish course of remdesivir Monitor off of antibiotics DVT GI prophylaxis updated 01/18 Patient's oxygen requirements have decreased On visual inspection no significant respiratory distress Continue dexamethasone Status post remdesivir Monitor off of antibiotics DVT GI prophylaxis Transfer out of the ICU once O2 requirements decrease Updated 01/17/2021 Continue with present Vapotherm at 95% FiO2 and 40 L flow. He appears to be comfortable. No paradoxical breathing. We will watch his respiratory status closely. At this point he does not need to be intubated. Continue current remdesivir Continue dexamethasone Monitor off antibiotics MDI Encourage p.o. intake DVT/GI prophylaxis Discussed with RN and RT Will monitor respiratory status closely. At this point he does not need intubation. Have discussed with mother in detail. I did explain to her that he is critical but stable. BHAVANI POE MD Jan 20, 2021 08:42
--- NOTE | 2021-01-20 09:59 | PDOC ---
[facility] [facility] PROGRESS NOTE Date of Service DOS: DATE: 01/20/21 TIME: 09:55 Chief Complaint Chief Complaint Acute hypoxic respiratory failure, ARDS on admit Sepsis acute COVID-19 pneumonia Type 1 diabetes, BMI 22, young age, low insulin requirement, with ongoing hyperglycemia, Hgb A1c 13.4 Severe malnutrition, POA on admit was dehydrated, hyponatremia History of Present Illness History of Present Illness 01/20/2021 Patient seen and examined now out of the ICU on 10 liters NC now, breathing easier than yesterdya some good improvment will increase his meal time insulin, to 9 u, blood sugars alittle hihg, will check labs tommorrow Chart reviewed He is slowly improving but still very ill, was in ICU 8 days Patient is a 40-year-old male without any reported past medical history presented to the emergency room today from urgent care where he was found to have an oxygen saturation of 76% on room air there. Patient went to urgent care because over the past week he had been having a cough, overall fatigue and weakness, dyspnea with exertion, intermittent chest pain, fevers, decreased p.o. intake. Patient denied any sick contacts. He is not a smoker. He did not receive the Covid vaccine. Upon arrival to the emergency room he was placed on 6 L of oxygen and saturations increased to 82%. Nonrebreather was tried however this did not really increase his oxygen saturations and by the time I went to evaluate him he was on continuous BiPAP with saturations in the low 90s. Patient admitting to ICU due to concern for respiratory status given Covid infection and possible need for mechanical ventilation. When evaluated in the emergency room patient was able to gesture that he was feeling somewhat better however was still having shortness of breath and cough. He was also reporting headache. Otherwise no major complaints. Vitals/I&O Vitals/I&O: Vital Signs Date Time Temp Pulse Resp B/P (MAP) Pulse Ox O2 Delivery O2 Flow Rate FiO2 01/20/21 07:34 Nasal Cannula 10.0 01/20/21 07:00 97.1 86 18 126/74 (91) 96 97.1 I & O 01/19/21 01/19/21 01/20/21 15:00 23:00 07:00 Intake Total 300 ml Output Total 1100 ml 900 ml Balance -1100 ml -600 ml Physical Exam General: Alert, Cooperative, moderate distress, Other (Weak and depressed) Heart: Regular rate, Other (Tachycardic) Abdomen: No hepatosplenomegaly, No masses Extremities: No clubbing, No cyanosis Skin: No rashes, No breakdown Labs Labs: Laboratory Tests Test 01/19/21 12:01 01/19/21 16:48 01/19/21 20:17 01/20/21 08:00 Glucose (Fingerstick) 242 mg/dL (70-99) 219 mg/dL (70-99) 225 mg/dL (70-99) 179 mg/dL (70-99) Assessment and Plan Assessmemt and Plan CT SCAN 01/11 Numerous groundglass focal consolidation and airspace opacities identified throughout the bilateral lungs diffusely likely infiltrates or covid /viral pneumonia. Follow-up to resolution. Electronically signed by: Lester Cooley MD (01/11/2021 12:07 PM) [id number] Problems Medical Problems: (1) Hypoxia Status: Acute (2) Person under investigation for COVID-19 Status: Acute (3) Pneumonia Status: Acute Comment Review of Relevant I have reviewed the following items teresa (where applicable) has been applied. Justifications for Admission Other Justification DOMINGUEZ HEDRICK MD Jan 20, 2021 09:59
--- NOTE | 2021-01-20 10:35 | NUR ---
SW following. Discussed with RN, pt from home, 10L, ada diet, COVID-19 positive. RN advised no SW needs at this time. SW will continue to follow.
[2021-01-20 11:00] VITALS: BP 122/73
[2021-01-20] MEDS ORDERED: ELECTROLYTE (NON-ICU) PROTOCOL. MC PRN (12:30)
--- NOTE | 2021-01-20 12:50 | NUR ---
Patient transferred from 675 to 500 via bed. Pt resting comfortably on 10L via NC. Bedside [place] hooked up to patient. Agree with previous RN's assessment. Call light with reach. Will continue to monitor.
[2021-01-20 15:00] VITALS: BP 114/62
[2021-01-20] MEDS: ENOXAPARIN 40 MG/0.4 ML SYRINGE. SQ SCH (16:54)
[2021-01-20 19:44] VITALS: BP 136/75
[2021-01-20] MEDS: INSULIN GLARGINE SYRINGE. SQ SCH (20:58)
[2021-01-20 23:33] VITALS: BP 137/80
[2021-01-21] MEDS: IV NORMAL SALINE 1000ML BAG 1,000 ML IV SCH ×3 (00:50→17:51)
[2021-01-21 03:43] VITALS: BP 126/80
[2021-01-21] MEDS: oxyCODONE/APAP 5/325 1 TAB TABLET PO PRN (04:01)
[2021-01-21 06:51] LABS: BASO % 0 % (0-3); EOS # 0.2 x10^3/uL (0.0-0.7); EOS % 2 % (0-3); HEMATOCRIT 36.3 % (39.0-53.0); HEMOGLOBIN 12.3 g/dL (13.0-17.5); LYMPH % 9 % (24-48); MEAN CORPUSCULAR HEMOGLOBIN 32 pg (25-35); MEAN CORPUSCULAR HGB CONC 34 g/dL (31-37); MEAN CORPUSCULAR VOLUME 94 fL (79-100); MONO # 1.2 x10^3/uL (0.0-1.1); MONO % 12 % (0-9); NEUT # 7.7 x10^3/uL (1.8-7.7); NEUT % 76 % (31-73); PLATELET COUNT 304 x10^3/uL (140-400); RED BLOOD COUNT 3.87 x10^6/uL (4.30-5.70); RED CELL DISTRIBUTION WIDTH 12.2 % (11.5-14.5); WHITE BLOOD COUNT 10.1 x10^3/uL (4.0-11.0)
[2021-01-21 07:00] VITALS: BP 144/87
[2021-01-21 07:02] LABS: ALBUMIN 2.1 g/dL (3.4-5.0); ALBUMIN/GLOBULIN RATIO 0.6 (1.0-1.7); CALCIUM 8.1 mg/dL (8.5-10.1); CREATININE 0.6 mg/dL (0.7-1.3); POTASSIUM 4.2 mmol/L (3.5-5.1); TOTAL BILIRUBIN 0.4 mg/dL (0.2-1.0); TOTAL PROTEIN 5.5 g/dL (6.4-8.2)
[2021-01-21] MEDS: INSULIN LISPRO 300 UNITS/3 ML VIAL. SQ SCH ×7 (07:30→20:22)
[2021-01-21] MEDS: IPRATROPIUM/ALBUTEROL 20/100mcg/INH INHALER. INH SCH ×4 (07:40→20:04)
--- NOTE | 2021-01-21 08:20 | PDOC ---
[facility] [facility] PROGRESS NOTE Date of Service DOS: DATE: 01/21/21 TIME: 08:18 Chief Complaint Chief Complaint Acute hypoxic respiratory failure, ARDS on admit Sepsis acute COVID-19 pneumonia Type 1 diabetes, BMI 22, young age, low insulin requirement, with ongoing hyperglycemia, Hgb A1c 13.4 Severe malnutrition, POA on admit was dehydrated, hyponatremia History of Present Illness History of Present Illness 01/21, his room was moved again, and he is alittle disoriented today he still does not seem to grasp the gravity of the situation that this virus and hypoxia almost killed him, he was surprised when I mentioned that. still hypoxic, on 10 liters, sats are higher than yesterday, will try to wean blood sugars much better, on increased meal dose insulin 01/20/2021 Patient seen and examined now out of the ICU on 10 liters NC now, breathing easier than yesterdya some good improvment will increase his meal time insulin, to 9 u, blood sugars alittle hihg, will check labs tommorrow Chart reviewed He is slowly improving but still very ill, was in ICU 8 days Patient is a 40-year-old male without any reported past medical history presented to the emergency room today from urgent care where he was found to have an oxygen saturation of 76% on room air there. Patient went to urgent care because over the past week he had been having a cough, overall fatigue and weakness, dyspnea with exertion, intermittent chest pain, fevers, decreased p.o. intake. Patient denied any sick contacts. He is not a smoker. He did not receive the Covid vaccine. Upon arrival to the emergency room he was placed on 6 L of oxygen and saturations increased to 82%. Nonrebreather was tried however this did not really increase his oxygen saturations and by the time I went to evaluate him he was on continuous BiPAP with saturations in the low 90s. Patient admitting to ICU due to concern for respiratory status given Covid infection and possible need for mechanical ventilation. When evaluated in the emergency room patient was able to gesture that he was feeling somewhat better however was still having shortness of breath and cough. He was also reporting headache. Otherwise no major complaints. Vitals/I&O Vitals/I&O: Vital Signs Date Time Temp Pulse Resp B/P (MAP) Pulse Ox O2 Delivery O2 Flow Rate FiO2 01/21/21 07:54 Nasal Cannula 10.0 01/21/21 03:43 98.2 74 20 126/80 (95) 99 98.2 I & O 01/20/21 01/20/21 01/21/21 15:00 23:00 07:00 Intake Total 220 ml 480 ml 350 ml Output Total 1400 ml 1100 ml 1000 ml Balance -1180 ml -620 ml -650 ml Physical Exam Physical Exam: more more calm, but a littel more confused today, General: Alert, Oriented X3, Cooperative, mild distress, Other (Weak and depressed) Heart: Regular rate, Other (Tachycardic) Abdomen: No hepatosplenomegaly, No masses Extremities: No clubbing, No cyanosis Skin: No rashes, No breakdown Labs Labs: Laboratory Tests Test 01/20/21 12:18 01/20/21 16:50 01/20/21 20:23 01/21/21 06:25 Glucose (Fingerstick) 323 mg/dL (70-99) 260 mg/dL (70-99) 293 mg/dL (70-99) White Blood Count 10.1 x10^3/uL (4.0-11.0) Red Blood Count 3.87 x10^6/uL (4.30-5.70) Hemoglobin 12.3 g/dL (13.0-17.5) Hematocrit 36.3 % (39.0-53.0) Mean Corpuscular Volume 94 fL (79-100) Mean Corpuscular Hemoglobin 32 pg (25-35) Mean Corpuscular Hemoglobin Concent 34 g/dL (31-37) Red Cell Distribution Width 12.2 % (11.5-14.5) Platelet Count 304 x10^3/uL (140-400) Neutrophils (%) (Auto) 76 % (31-73) Lymphocytes (%) (Auto) 9 % (24-48) Monocytes (%) (Auto) 12 % (0-9) Eosinophils (%) (Auto) 2 % (0-3) Basophils (%) (Auto) 0 % (0-3) Neutrophils # (Auto) 7.7 x10^3/uL (1.8-7.7) Lymphocytes # (Auto) 1.0 x10^3/uL (1.0-4.8) Monocytes # (Auto) 1.2 x10^3/uL (0.0-1.1) Eosinophils # (Auto) 0.2 x10^3/uL (0.0-0.7) Basophils # (Auto) 0.0 x10^3/uL (0.0-0.2) Sodium Level 136 mmol/L (136-145) Potassium Level 4.2 mmol/L (3.5-5.1) Chloride Level 100 mmol/L (98-107) Carbon Dioxide Level 35 mmol/L (21-32) Anion Gap 1 (6-14) Blood Urea Nitrogen 14 mg/dL (8-26) Creatinine 0.6 mg/dL (0.7-1.3) Estimated GFR (Cockcroft-Gault) 150.0 BUN/Creatinine Ratio 23 (6-20) Glucose Level 164 mg/dL (70-99) Calcium Level 8.1 mg/dL (8.5-10.1) Total Bilirubin 0.4 mg/dL (0.2-1.0) Aspartate Amino Transf (AST/SGOT) 8 U/L (15-37) Alanine Aminotransferase (ALT/SGPT) 16 U/L (16-63) Alkaline Phosphatase 58 U/L (46-116) Total Protein 5.5 g/dL (6.4-8.2) Albumin 2.1 g/dL (3.4-5.0) Albumin/Globulin Ratio 0.6 (1.0-1.7) Test 01/21/21 07:18 Glucose (Fingerstick) 143 mg/dL (70-99) Review of Systems Review of Systems: cough, weakness, dysnea, Assessment and Plan Assessmemt and Plan Problems Medical Problems: (1) Hypoxia Status: Acute (2) Person under investigation for COVID-19 Status: Acute (3) Pneumonia Status: Acute Comment Review of Relevant I have reviewed the following items teresa (where applicable) has been applied. Medications: Current Medications Medications (Trade) Dose Ordered Sig/Dutch Route PRN Reason Start Time Stop Time Status Last Admin Dose Admin Insulin Human Lispro (HumaLOG) 9 units TIDWMEALS SQ 01/20/21 12:00 01/21/21 07:42 Justifications for Admission Other Justification DOMINGUEZ HEDRICK MD Jan 21, 2021 08:20
[2021-01-21] MEDS: FAMOTIDINE 20 MG TABLET. PO SCH ×2 (08:37→20:04)
[2021-01-21] MEDS: SENNOSIDES/DOCUSATE 8.6/50MG TABLET. PO SCH ×2 (08:37→20:04)
[2021-01-21] MEDS: ASCORBIC ACID 500 MG TABLET PO SCH ×2 (08:37→20:04)
[2021-01-21] MEDS: DEXAMETHASONE SOD PHOS 4 MG/ML VIAL IVP SCH (08:38)
--- NOTE | 2021-01-21 09:15 | PDOC ---
PULMONARY PROGRESS NOTES DATE: 01/21/21 TIME: 09:14 Subjective Patient's remains on 10 liters NC afebrile no increased SOA or Cough Vitals Vital Signs Date Time Temp Pulse Resp B/P (MAP) Pulse Ox O2 Delivery O2 Flow Rate FiO2 01/21/21 07:54 Nasal Cannula 10.0 01/21/21 07:00 98.2 75 17 144/87 (106) 98 98.2 Comments Patient seen during , visual exam performed Regular rate and rhythm No distress No obvious rash or edema NO Accessory muscle use General: Alert Labs Laboratory Tests Test 01/19/21 12:01 01/19/21 16:48 01/19/21 20:17 01/20/21 08:00 Glucose (Fingerstick) 242 mg/dL (70-99) 219 mg/dL (70-99) 225 mg/dL (70-99) 179 mg/dL (70-99) Test 01/20/21 12:18 01/20/21 16:50 01/20/21 20:23 01/21/21 06:25 Glucose (Fingerstick) 323 mg/dL (70-99) 260 mg/dL (70-99) 293 mg/dL (70-99) White Blood Count 10.1 x10^3/uL (4.0-11.0) Red Blood Count 3.87 x10^6/uL (4.30-5.70) Hemoglobin 12.3 g/dL (13.0-17.5) Hematocrit 36.3 % (39.0-53.0) Mean Corpuscular Volume 94 fL (79-100) Mean Corpuscular Hemoglobin 32 pg (25-35) Mean Corpuscular Hemoglobin Concent 34 g/dL (31-37) Red Cell Distribution Width 12.2 % (11.5-14.5) Platelet Count 304 x10^3/uL (140-400) Neutrophils (%) (Auto) 76 % (31-73) Lymphocytes (%) (Auto) 9 % (24-48) Monocytes (%) (Auto) 12 % (0-9) Eosinophils (%) (Auto) 2 % (0-3) Basophils (%) (Auto) 0 % (0-3) Neutrophils # (Auto) 7.7 x10^3/uL (1.8-7.7) Lymphocytes # (Auto) 1.0 x10^3/uL (1.0-4.8) Monocytes # (Auto) 1.2 x10^3/uL (0.0-1.1) Eosinophils # (Auto) 0.2 x10^3/uL (0.0-0.7) Basophils # (Auto) 0.0 x10^3/uL (0.0-0.2) Sodium Level 136 mmol/L (136-145) Potassium Level 4.2 mmol/L (3.5-5.1) Chloride Level 100 mmol/L (98-107) Carbon Dioxide Level 35 mmol/L (21-32) Anion Gap 1 (6-14) Blood Urea Nitrogen 14 mg/dL (8-26) Creatinine 0.6 mg/dL (0.7-1.3) Estimated GFR (Cockcroft-Gault) 150.0 BUN/Creatinine Ratio 23 (6-20) Glucose Level 164 mg/dL (70-99) Calcium Level 8.1 mg/dL (8.5-10.1) Total Bilirubin 0.4 mg/dL (0.2-1.0) Aspartate Amino Transf (AST/SGOT) 8 U/L (15-37) Alanine Aminotransferase (ALT/SGPT) 16 U/L (16-63) Alkaline Phosphatase 58 U/L (46-116) Total Protein 5.5 g/dL (6.4-8.2) Albumin 2.1 g/dL (3.4-5.0) Albumin/Globulin Ratio 0.6 (1.0-1.7) Test 01/21/21 07:18 Glucose (Fingerstick) 143 mg/dL (70-99) Laboratory Tests Test 01/20/21 12:18 01/20/21 16:50 01/20/21 20:23 01/21/21 06:25 Glucose (Fingerstick) 323 mg/dL (70-99) 260 mg/dL (70-99) 293 mg/dL (70-99) White Blood Count 10.1 x10^3/uL (4.0-11.0) Red Blood Count 3.87 x10^6/uL (4.30-5.70) Hemoglobin 12.3 g/dL (13.0-17.5) Hematocrit 36.3 % (39.0-53.0) Mean Corpuscular Volume 94 fL (79-100) Mean Corpuscular Hemoglobin 32 pg (25-35) Mean Corpuscular Hemoglobin Concent 34 g/dL (31-37) Red Cell Distribution Width 12.2 % (11.5-14.5) Platelet Count 304 x10^3/uL (140-400) Neutrophils (%) (Auto) 76 % (31-73) Lymphocytes (%) (Auto) 9 % (24-48) Monocytes (%) (Auto) 12 % (0-9) Eosinophils (%) (Auto) 2 % (0-3) Basophils (%) (Auto) 0 % (0-3) Neutrophils # (Auto) 7.7 x10^3/uL (1.8-7.7) Lymphocytes # (Auto) 1.0 x10^3/uL (1.0-4.8) Monocytes # (Auto) 1.2 x10^3/uL (0.0-1.1) Eosinophils # (Auto) 0.2 x10^3/uL (0.0-0.7) Basophils # (Auto) 0.0 x10^3/uL (0.0-0.2) Sodium Level 136 mmol/L (136-145) Potassium Level 4.2 mmol/L (3.5-5.1) Chloride Level 100 mmol/L (98-107) Carbon Dioxide Level 35 mmol/L (21-32) Anion Gap 1 (6-14) Blood Urea Nitrogen 14 mg/dL (8-26) Creatinine 0.6 mg/dL (0.7-1.3) Estimated GFR (Cockcroft-Gault) 150.0 BUN/Creatinine Ratio 23 (6-20) Glucose Level 164 mg/dL (70-99) Calcium Level 8.1 mg/dL (8.5-10.1) Total Bilirubin 0.4 mg/dL (0.2-1.0) Aspartate Amino Transf (AST/SGOT) 8 U/L (15-37) Alanine Aminotransferase (ALT/SGPT) 16 U/L (16-63) Alkaline Phosphatase 58 U/L (46-116) Total Protein 5.5 g/dL (6.4-8.2) Albumin 2.1 g/dL (3.4-5.0) Albumin/Globulin Ratio 0.6 (1.0-1.7) Test 01/21/21 07:18 Glucose (Fingerstick) 143 mg/dL (70-99) Medications Active Scripts Medications Dose Route/Sig Max Daily Dose Days Date Category No Known Medications Prior To Admisstion (Info) Each 1 Each 1X 01/11/21 Reported Comments CTA chest IMPRESSION: 1. No evidence of central pulmonary embolism. The evaluation of distal branches of the pulmonary arteries is limited. 2. Numerous groundglass focal consolidation and airspace opacities identified throughout the bilateral lungs diffusely likely infiltrates or covid /viral pneumonia. Follow-up to resolution. Impression . IMPRESSION: 1. Acute hypoxic respiratory failure secondary to COVID-19 pneumonia, acute lung injury /acute respiratory distress syndrome. 2. Abnormal chest x-ray with diffuse bilateral infiltrates consistent with COVID-19 pneumonia. 3. CTA chest with no evidence of pulmonary embolism. However, there are bilateral infiltrates consistent with viral pneumonia. 4. No significant tobacco history. 5. Unvaccinated for COVID-19. Plan . Updated 01/21/21 Continue supplemental oxygen to keep sats above 92% on 10 liters NC MDI Status post remdesivir Continue steroids with slow taper , will need at least 10 day course DM per PCP DVT/GI PPX:pepcid/lovenox D/W RN Updated 01/20/21 Continue supplemental oxygen to keep sats above 92% on 10 liters NC Follow CXR PRN Status post remdesivir Continue steroids with slow taper DM per PCP DVT/GI PPX D/W RN Updated 01/19 Transfer out of the ICU Continue dexamethasone Finish course of remdesivir Monitor off of antibiotics DVT GI prophylaxis BHAVANI POE MD Jan 21, 2021 09:15
--- NOTE | 2021-01-21 10:34 | NUR ---
SW following. Discussed with RN, pt from home, 10L, ada diet, COVID-19 positive. RN attempting to titrate pt today. SW will continue to follow.
[2021-01-21 11:00] VITALS: BP 116/67
[2021-01-21 15:00] VITALS: BP 136/73
[2021-01-21] MEDS: ENOXAPARIN 40 MG/0.4 ML SYRINGE. SQ SCH (16:20)
[2021-01-21 19:40] VITALS: BP 136/86
[2021-01-21] MEDS: INSULIN GLARGINE SYRINGE. SQ SCH (20:23)
[2021-01-21 23:20] VITALS: BP 137/83
[2021-01-22] MEDS: IV NORMAL SALINE 1000ML BAG 1,000 ML IV SCH ×3 (02:06→20:55)
[2021-01-22] MEDS: guaiFENesin ORAL 200 MG/10 ML LIQUID. PO PRN (03:55)
[2021-01-22 03:57] VITALS: BP 137/91
[2021-01-22 07:00] VITALS: BP 145/87
[2021-01-22] MEDS: ASCORBIC ACID 500 MG TABLET PO SCH ×2 (08:07→20:53)
[2021-01-22] MEDS: FAMOTIDINE 20 MG TABLET. PO SCH ×2 (08:07→20:53)
[2021-01-22] MEDS: SENNOSIDES/DOCUSATE 8.6/50MG TABLET. PO SCH ×2 (08:07→20:54)
[2021-01-22] MEDS: IPRATROPIUM/ALBUTEROL 20/100mcg/INH INHALER. INH SCH ×4 (08:08→21:16)
[2021-01-22] MEDS: INSULIN LISPRO 300 UNITS/3 ML VIAL. SQ SCH ×7 (08:09→21:00)
[2021-01-22 11:00] VITALS: BP 167/58
--- NOTE | 2021-01-22 12:38 | PDOC ---
[facility] PROGRESS NOTE Date of Service DOS: DATE: 01/22/21 TIME: 12:35 Chief Complaint Chief Complaint Acute hypoxic respiratory failure, ARDS on admit Sepsis acute COVID-19 pneumonia Type 1 diabetes, BMI 22, young age, low insulin requirement, with ongoing hyperglycemia, Hgb A1c 13.4 Severe malnutrition, POA on admit was dehydrated, hyponatremia History of Present Illness History of Present Illness 01/22/2021 No acute events overnight. Patient seen and examined bedside. Continues to be on 98% 10 L nasal cannula. Has not required BiPAP overnight. Still complains of the room situation that he is in and is uncomfortable and the room keeps on changing from hot to cold and the nursing staff has not been attending to his needs. I reiterated to him that the hospital is not the best place to be but when we are sick we are just keeping him alive. Also reassured to him that he needs to get the Covid vaccine once he completely is off of oxygen and feels 100%. Patient's chart, labs, images were reviewed and discussed with RN 01/21, his room was moved again, and he is alittle disoriented today he still does not seem to grasp the gravity of the situation that this virus and hypoxia almost killed him, he was surprised when I mentioned that. still hypoxic, on 10 liters, sats are higher than yesterday, will try to wean blood sugars much better, on increased meal dose insulin 01/20/2021 Patient seen and examined now out of the ICU on 10 liters NC now, breathing easier than yesterdya some good improvment will increase his meal time insulin, to 9 u, blood sugars alittle hihg, will check labs tommorrow Chart reviewed He is slowly improving but still very ill, was in ICU 8 days Patient is a 40-year-old male without any reported past medical history presented to the emergency room today from urgent care where he was found to have an oxygen saturation of 76% on room air there. Patient went to urgent care because over the past week he had been having a cough, overall fatigue and weakness, dyspnea with exertion, intermittent chest pain, fevers, decreased p.o. intake. Patient denied any sick contacts. He is not a smoker. He did not receive the Covid vaccine. Upon arrival to the emergency room he was placed on 6 L of oxygen and saturations increased to 82%. Nonrebreather was tried however this did not really increase his oxygen saturations and by the time I went to evaluate him he was on continuous BiPAP with saturations in the low 90s. Patient admitting to ICU due to concern for respiratory status given Covid infection and possible need for mechanical ventilation. When evaluated in the emergency room patient was able to gesture that he was feeling somewhat better however was still having shortness of breath and cough. He was also reporting headache. Otherwise no major complaints. Vitals/I&O Vitals/I&O: Vital Signs Date Time Temp Pulse Resp B/P (MAP) Pulse Ox O2 Delivery O2 Flow Rate FiO2 01/22/21 11:00 97.8 93 20 167/58 (94) 98 Nasal Cannula 10.0 97.8 I & O 01/21/21 01/21/21 01/22/21 15:00 23:00 07:00 Intake Total 1120 ml 1240 ml 1860 ml Output Total 850 ml 1350 ml Balance 1120 ml 390 ml 510 ml Physical Exam Physical Exam: more more calm, but a littel more confused today, General: Alert, Oriented X3, Cooperative, mild distress, Other (Weak and depressed) Heart: Regular rate, Other (Tachycardic) Abdomen: No hepatosplenomegaly, No masses Extremities: No clubbing, No cyanosis Skin: No rashes, No breakdown Labs Labs: Laboratory Tests Test 01/21/21 16:43 01/21/21 20:11 01/22/21 07:11 01/22/21 10:54 Glucose (Fingerstick) 324 mg/dL (70-99) 231 mg/dL (70-99) 186 mg/dL (70-99) 266 mg/dL (70-99) Assessment and Plan Assessmemt and Plan Problems Medical Problems: (1) Hypoxia Status: Acute (2) Person under investigation for COVID-19 Status: Acute (3) Pneumonia Status: Acute Comment Review of Relevant I have reviewed the following items teresa (where applicable) has been applied. Justifications for Admission Other Justification ROSALINDA REIS MD Jan 22, 2021 12:38
--- NOTE | 2021-01-22 14:29 | PDOC ---
PULMONARY PROGRESS NOTES DATE: 01/22/21 TIME: 14:28 Subjective Patient not more short of air, slept okay Currently on 8 L of oxygen supplementation Vitals Vital Signs Date Time Temp Pulse Resp B/P (MAP) Pulse Ox O2 Delivery O2 Flow Rate FiO2 01/22/21 11:00 97.8 93 20 167/58 (94) 98 Nasal Cannula 10.0 97.8 Comments Patient seen during , visual exam performed Regular rate and rhythm No distress No obvious rash or edema NO Accessory muscle use General: Alert Labs Laboratory Tests Test 01/20/21 16:50 01/20/21 20:23 01/21/21 06:25 01/21/21 07:18 Glucose (Fingerstick) 260 mg/dL (70-99) 293 mg/dL (70-99) 143 mg/dL (70-99) White Blood Count 10.1 x10^3/uL (4.0-11.0) Red Blood Count 3.87 x10^6/uL (4.30-5.70) Hemoglobin 12.3 g/dL (13.0-17.5) Hematocrit 36.3 % (39.0-53.0) Mean Corpuscular Volume 94 fL (79-100) Mean Corpuscular Hemoglobin 32 pg (25-35) Mean Corpuscular Hemoglobin Concent 34 g/dL (31-37) Red Cell Distribution Width 12.2 % (11.5-14.5) Platelet Count 304 x10^3/uL (140-400) Neutrophils (%) (Auto) 76 % (31-73) Lymphocytes (%) (Auto) 9 % (24-48) Monocytes (%) (Auto) 12 % (0-9) Eosinophils (%) (Auto) 2 % (0-3) Basophils (%) (Auto) 0 % (0-3) Neutrophils # (Auto) 7.7 x10^3/uL (1.8-7.7) Lymphocytes # (Auto) 1.0 x10^3/uL (1.0-4.8) Monocytes # (Auto) 1.2 x10^3/uL (0.0-1.1) Eosinophils # (Auto) 0.2 x10^3/uL (0.0-0.7) Basophils # (Auto) 0.0 x10^3/uL (0.0-0.2) Sodium Level 136 mmol/L (136-145) Potassium Level 4.2 mmol/L (3.5-5.1) Chloride Level 100 mmol/L (98-107) Carbon Dioxide Level 35 mmol/L (21-32) Anion Gap 1 (6-14) Blood Urea Nitrogen 14 mg/dL (8-26) Creatinine 0.6 mg/dL (0.7-1.3) Estimated GFR (Cockcroft-Gault) 150.0 BUN/Creatinine Ratio 23 (6-20) Glucose Level 164 mg/dL (70-99) Calcium Level 8.1 mg/dL (8.5-10.1) Total Bilirubin 0.4 mg/dL (0.2-1.0) Aspartate Amino Transf (AST/SGOT) 8 U/L (15-37) Alanine Aminotransferase (ALT/SGPT) 16 U/L (16-63) Alkaline Phosphatase 58 U/L (46-116) Total Protein 5.5 g/dL (6.4-8.2) Albumin 2.1 g/dL (3.4-5.0) Albumin/Globulin Ratio 0.6 (1.0-1.7) Test 01/21/21 10:49 01/21/21 16:43 01/21/21 20:11 01/22/21 07:11 Glucose (Fingerstick) 222 mg/dL (70-99) 324 mg/dL (70-99) 231 mg/dL (70-99) 186 mg/dL (70-99) Test 01/22/21 10:54 Glucose (Fingerstick) 266 mg/dL (70-99) Laboratory Tests Test 01/21/21 16:43 01/21/21 20:11 01/22/21 07:11 01/22/21 10:54 Glucose (Fingerstick) 324 mg/dL (70-99) 231 mg/dL (70-99) 186 mg/dL (70-99) 266 mg/dL (70-99) Medications Active Scripts Medications Dose Route/Sig Max Daily Dose Days Date Category No Known Medications Prior To Admisstion (Info) Each 1 Each 1X 01/11/21 Reported Comments CTA chest IMPRESSION: 1. No evidence of central pulmonary embolism. The evaluation of distal branches of the pulmonary arteries is limited. 2. Numerous groundglass focal consolidation and airspace opacities identified throughout the bilateral lungs diffusely likely infiltrates or covid /viral pneumonia. Follow-up to resolution. Impression . IMPRESSION: 1. Acute hypoxic respiratory failure secondary to COVID-19 pneumonia, acute lung injury /acute respiratory distress syndrome. 2. Abnormal chest x-ray with diffuse bilateral infiltrates consistent with COVID-19 pneumonia. 3. CTA chest with no evidence of pulmonary embolism. However, there are bilateral infiltrates consistent with viral pneumonia. 4. No significant tobacco history. 5. Unvaccinated for COVID-19. Plan . Updated 01/22 Oxygen requirements are slowly decreasing Completed course of remdesivir Continue steroids DVT GI prophylaxis Once patient is down to approximately 5 L of oxygen may consider discharge home Updated 01/21/21 Continue supplemental oxygen to keep sats above 92% on 10 liters NC MDI Status post remdesivir Continue steroids with slow taper , will need at least 10 day course DM per PCP DVT/GI PPX:pepcid/lovenox D/W RN Updated 01/20/21 Continue supplemental oxygen to keep sats above 92% on 10 liters NC Follow CXR PRN Status post remdesivir Continue steroids with slow taper DM per PCP DVT/GI PPX D/W RN BHAVANI POE MD Jan 22, 2021 14:29
[2021-01-22 15:00] VITALS: BP 137/78
[2021-01-22] MEDS: ENOXAPARIN 40 MG/0.4 ML SYRINGE. SQ SCH (15:53)
[2021-01-22 19:00] VITALS: BP 130/81
[2021-01-22] MEDS: INSULIN GLARGINE SYRINGE. SQ SCH (21:47)
[2021-01-22 23:00] VITALS: BP 120/68
[2021-01-23] MEDS: IV NORMAL SALINE 1000ML BAG 1,000 ML IV SCH ×3 (02:19→21:23)
[2021-01-23 03:00] VITALS: BP 122/86
[2021-01-23 07:23] VITALS: BP 141/80
[2021-01-23] MEDS: FAMOTIDINE 20 MG TABLET. PO SCH ×2 (08:24→21:23)
[2021-01-23] MEDS: ASCORBIC ACID 500 MG TABLET PO SCH ×2 (08:24→21:23)
[2021-01-23] MEDS: SENNOSIDES/DOCUSATE 8.6/50MG TABLET. PO SCH ×2 (08:24→21:00)
[2021-01-23] MEDS: IPRATROPIUM/ALBUTEROL 20/100mcg/INH INHALER. INH SCH ×4 (08:25→21:22)
[2021-01-23] MEDS: INSULIN LISPRO 300 UNITS/3 ML VIAL. SQ SCH ×7 (08:26→21:00)
[2021-01-23] MEDS: guaiFENesin ORAL 200 MG/10 ML LIQUID. PO PRN ×2 (10:10→17:38)
[2021-01-23] MEDS: INSULIN GLARGINE SYRINGE. SQ SCH ×2 (10:12→21:41)
--- NOTE | 2021-01-23 10:17 | PDOC ---
[facility] PROGRESS NOTE Date of Service DOS: DATE: 01/23/21 TIME: 10:16 Chief Complaint Chief Complaint Acute hypoxic respiratory failure, ARDS on admit Sepsis acute COVID-19 pneumonia Type 1 diabetes, BMI 22, young age, low insulin requirement, with ongoing hyperglycemia, Hgb A1c 13.4 Severe malnutrition, POA on admit was dehydrated, hyponatremia History of Present Illness History of Present Illness 01/23/2021 No acute events overnight. Patient seen and examined bedside. Improve oxygenation at 93% 6 L nasal cannula. Anticipate discharge within the next 24 hours. Complete 6-minute walk test before discharge. Patient's chart, labs, images were reviewed and discussed with RN 01/22/2021 No acute events overnight. Patient seen and examined bedside. Continues to be on 98% 10 L nasal cannula. Has not required BiPAP overnight. Still complains of the room situation that he is in and is uncomfortable and the room keeps on changing from hot to cold and the nursing staff has not been attending to his needs. I reiterated to him that the hospital is not the best place to be but when we are sick we are just keeping him alive. Also reassured to him that he needs to get the Covid vaccine once he completely is off of oxygen and feels 100%. Patient's chart, labs, images were reviewed and discussed with RN 01/21, his room was moved again, and he is alittle disoriented today he still does not seem to grasp the gravity of the situation that this virus and hypoxia almost killed him, he was surprised when I mentioned that. still hypoxic, on 10 liters, sats are higher than yesterday, will try to wean blood sugars much better, on increased meal dose insulin 01/20/2021 Patient seen and examined now out of the ICU on 10 liters NC now, breathing easier than yesterdya some good improvment will increase his meal time insulin, to 9 u, blood sugars alittle hihg, will check labs tommorrow Chart reviewed He is slowly improving but still very ill, was in ICU 8 days Patient is a 40-year-old male without any reported past medical history presented to the emergency room today from urgent care where he was found to have an oxygen saturation of 76% on room air there. Patient went to urgent care because over the past week he had been having a cough, overall fatigue and weakness, dyspnea with exertion, intermittent chest pain, fevers, decreased p.o. intake. Patient denied any sick contacts. He is not a smoker. He did not receive the Covid vaccine. Upon arrival to the emergency room he was placed on 6 L of oxygen and saturations increased to 82%. Nonrebreather was tried however this did not really increase his oxygen saturations and by the time I went to evaluate him he was on continuous BiPAP with saturations in the low 90s. Patient admitting to ICU due to concern for respiratory status given Covid infection and possible need for mechanical ventilation. When evaluated in the emergency room patient was able to gesture that he was feeling somewhat better however was still having shortness of breath and cough. He was also reporting headache. Otherwise no major complaints. Vitals/I&O Vitals/I&O: Vital Signs Date Time Temp Pulse Resp B/P (MAP) Pulse Ox O2 Delivery O2 Flow Rate FiO2 01/23/21 07:50 Nasal Cannula 6.0 01/23/21 07:23 96.7 94 18 141/80 (100) 93 96.7 I & O 01/22/21 01/22/21 01/23/21 15:00 23:00 07:00 Intake Total 1000 ml 120 ml Output Total 400 ml 1500 ml Balance 600 ml -1380 ml Physical Exam Physical Exam: more more calm, but a littel more confused today, General: Alert, Oriented X3, Cooperative, mild distress, Other (Weak and depressed) Heart: Regular rate, Other (Tachycardic) Lungs: Clear Abdomen: No hepatosplenomegaly, No masses Extremities: No clubbing, No cyanosis Skin: No rashes, No breakdown Labs Labs: Laboratory Tests Test 01/22/21 10:54 01/22/21 17:00 01/22/21 20:57 01/23/21 08:11 Glucose (Fingerstick) 266 mg/dL (70-99) 176 mg/dL (70-99) 133 mg/dL (70-99) 205 mg/dL (70-99) Assessment and Plan Assessmemt and Plan Problems Medical Problems: (1) Hypoxia Status: Acute (2) Person under investigation for COVID-19 Status: Acute (3) Pneumonia Status: Acute Comment Review of Relevant I have reviewed the following items teresa (where applicable) has been applied. Medications: Current Medications Medications (Trade) Dose Ordered Sig/Dutch Route PRN Reason Start Time Stop Time Status Last Admin Dose Admin Insulin Glargine (Lantus Syringe) 10 unit BID SQ 01/22/21 22:00 01/22/21 21:47 Justifications for Admission Other Justification ROSALINDA REIS MD Jan 23, 2021 10:17
[2021-01-23 11:00] VITALS: BP 133/80
--- NOTE | 2021-01-23 12:54 | PDOC ---
PULMONARY PROGRESS NOTES DATE: 01/23/21 TIME: 12:53 Subjective no overnight events no increased SOA or cough Currently on 6 L of oxygen supplementation Vitals Vital Signs Date Time Temp Pulse Resp B/P (MAP) Pulse Ox O2 Delivery O2 Flow Rate FiO2 01/23/21 11:00 97.1 104 20 133/80 (97) 96 Nasal Cannula 6.0 97.1 Comments Patient seen during ID pandemic, visual exam performed Regular rate and rhythm No distress No obvious rash or edema NO Accessory muscle use General: Alert Lungs: Clear Labs Laboratory Tests Test 01/21/21 16:43 01/21/21 20:11 01/22/21 07:11 01/22/21 10:54 Glucose (Fingerstick) 324 mg/dL (70-99) 231 mg/dL (70-99) 186 mg/dL (70-99) 266 mg/dL (70-99) Test 01/22/21 17:00 01/22/21 20:57 01/23/21 08:11 01/23/21 12:15 Glucose (Fingerstick) 176 mg/dL (70-99) 133 mg/dL (70-99) 205 mg/dL (70-99) 196 mg/dL (70-99) Laboratory Tests Test 01/22/21 17:00 01/22/21 20:57 01/23/21 08:11 01/23/21 12:15 Glucose (Fingerstick) 176 mg/dL (70-99) 133 mg/dL (70-99) 205 mg/dL (70-99) 196 mg/dL (70-99) Medications Active Scripts Medications Dose Route/Sig Max Daily Dose Days Date Category No Known Medications Prior To Admisstion (Info) Each 1 Each 1X 01/11/21 Reported Comments CTA chest IMPRESSION: 1. No evidence of central pulmonary embolism. The evaluation of distal branches of the pulmonary arteries is limited. 2. Numerous groundglass focal consolidation and airspace opacities identified throughout the bilateral lungs diffusely likely infiltrates or covid /viral pneumonia. Follow-up to resolution. Impression . IMPRESSION: 1. Acute hypoxic respiratory failure secondary to COVID-19 pneumonia, acute lung injury /acute respiratory distress syndrome. 2. Abnormal chest x-ray with diffuse bilateral infiltrates consistent with COVID-19 pneumonia. 3. CTA chest with no evidence of pulmonary embolism. However, there are bilateral infiltrates consistent with viral pneumonia. 4. No significant tobacco history. 5. Unvaccinated for COVID-19. Plan . Updated 01/23/21 Continue supplemental oxygen to keep sats above 92% on 6 liters NC six minute walk before DC MDI Status post remdesivir Continue steroids with slow taper , will need at least 10 day course DM per PCP DVT/GI PPX:pepcid/lovenox D/W RN Possible DC in am after 6 min walk Updated 01/22 Oxygen requirements are slowly decreasing Completed course of remdesivir Continue steroids DVT GI prophylaxis Once patient is down to approximately 5 L of oxygen may consider discharge home Updated 01/21/21 Continue supplemental oxygen to keep sats above 92% on 10 liters NC MDI Status post remdesivir Continue steroids with slow taper , will need at least 10 day course DM per PCP DVT/GI PPX:pepcid/lovenox D/W RN Updated 01/20/21 Continue supplemental oxygen to keep sats above 92% on 10 liters NC Follow CXR PRN Status post remdesivir Continue steroids with slow taper DM per PCP DVT/GI PPX D/W RN BHAVANI POE MD Jan 23, 2021 12:54
[2021-01-23 15:20] VITALS: BP 123/82
[2021-01-23] MEDS: ENOXAPARIN 40 MG/0.4 ML SYRINGE. SQ SCH (17:38)
[2021-01-23 19:00] VITALS: BP 129/70
[2021-01-23 23:00] VITALS: BP 128/77
[2021-01-24] MEDS: IV NORMAL SALINE 1000ML BAG 1,000 ML IV SCH (02:45)
[2021-01-24 03:00] VITALS: BP 127/77
[2021-01-24] MEDS: guaiFENesin ORAL 200 MG/10 ML LIQUID. PO PRN (03:02)
[2021-01-24 07:00] VITALS: BP 128/79
[2021-01-24] MEDS: FAMOTIDINE 20 MG TABLET. PO SCH (08:42)
[2021-01-24] MEDS: ASCORBIC ACID 500 MG TABLET PO SCH (08:42)
[2021-01-24] MEDS: SENNOSIDES/DOCUSATE 8.6/50MG TABLET. PO SCH (08:42)
[2021-01-24] MEDS: IPRATROPIUM/ALBUTEROL 20/100mcg/INH INHALER. INH SCH ×3 (08:43→17:30)
[2021-01-24] MEDS: INSULIN LISPRO 300 UNITS/3 ML VIAL. SQ SCH ×6 (09:06→17:32)
[2021-01-24] MEDS: INSULIN GLARGINE SYRINGE. SQ SCH (09:07)
--- NOTE | 2021-01-24 09:10 | PDOC ---
PULMONARY PROGRESS NOTES DATE: 01/24/21 TIME: 09:09 Subjective No overnight events currently on 6 L no increasing shortness of Vitals Vital Signs Date Time Temp Pulse Resp B/P (MAP) Pulse Ox O2 Delivery O2 Flow Rate FiO2 01/24/21 07:00 97.9 98 18 128/79 (95) 95 Nasal Cannula 4.0 97.9 Comments Patient seen during ID pandemic, visual exam performed Regular rate and rhythm No distress No obvious rash or edema NO Accessory muscle use General: Alert Labs Laboratory Tests Test 01/22/21 10:54 01/22/21 17:00 01/22/21 20:57 01/23/21 08:11 Glucose (Fingerstick) 266 mg/dL (70-99) 176 mg/dL (70-99) 133 mg/dL (70-99) 205 mg/dL (70-99) Test 01/23/21 12:15 01/23/21 17:17 01/23/21 21:03 01/24/21 03:41 Glucose (Fingerstick) 196 mg/dL (70-99) 160 mg/dL (70-99) 108 mg/dL (70-99) 159 mg/dL (70-99) Test 01/24/21 07:06 Glucose (Fingerstick) 226 mg/dL (70-99) Laboratory Tests Test 01/23/21 12:15 01/23/21 17:17 01/23/21 21:03 01/24/21 03:41 Glucose (Fingerstick) 196 mg/dL (70-99) 160 mg/dL (70-99) 108 mg/dL (70-99) 159 mg/dL (70-99) Test 01/24/21 07:06 Glucose (Fingerstick) 226 mg/dL (70-99) Medications Active Scripts Medications Dose Route/Sig Max Daily Dose Days Date Category No Known Medications Prior To Admisstion (Info) Each 1 Each 1X 01/11/21 Reported Comments CTA chest IMPRESSION: 1. No evidence of central pulmonary embolism. The evaluation of distal branches of the pulmonary arteries is limited. 2. Numerous groundglass focal consolidation and airspace opacities identified throughout the bilateral lungs diffusely likely infiltrates or covid /viral pneumonia. Follow-up to resolution. Impression . IMPRESSION: 1. Acute hypoxic respiratory failure secondary to COVID-19 pneumonia, acute lung injury /acute respiratory distress syndrome. 2. Abnormal chest x-ray with diffuse bilateral infiltrates consistent with COVID-19 pneumonia. 3. CTA chest with no evidence of pulmonary embolism. However, there are bilateral infiltrates consistent with viral pneumonia. 4. No significant tobacco history. 5. Unvaccinated for COVID-19. Plan . 01/24 Patient ready to discharge, is not more short of Patient doing better, will check 6-minute walk, possible discharge Continue current sub- Updated 01/23/21 Continue supplemental oxygen to keep sats above 92% on 6 liters NC six minute walk before DC MDI Status post remdesivir Continue steroids with slow taper , will need at least 10 day course DM per PCP DVT/GI PPX:pepcid/lovenox D/W RN Possible DC in am after 6 min walk Updated 01/22 Oxygen requirements are slowly decreasing Completed course of remdesivir Continue steroids DVT GI prophylaxis Once patient is down to approximately 5 L of oxygen may consider discharge home BHAVANI POE MD Jan 24, 2021 09:10
[2021-01-24 11:00] VITALS: BP 123/73
[2021-01-24] MEDS ORDERED: METF-658 PO (11:10)
--- NOTE | 2021-01-24 11:11 | PDOC ---
[facility] PROGRESS NOTE Date of Service DOS: DATE: 01/24/21 TIME: 11:03 Chief Complaint Chief Complaint Acute hypoxic respiratory failure, ARDS on admit Sepsis acute COVID-19 pneumonia Type 1 diabetes, BMI 22, young age, low insulin requirement, with ongoing hyperglycemia, Hgb A1c 13.4 Severe malnutrition, POA on admit was dehydrated, hyponatremia History of Present Illness History of Present Illness 01/24/2021: Afebrile, no acute events overnight. Currently breathing on 4 L nasal cannula. Will obtain 6-minute walk test that morning and discharge home with new medications for DM2. He does report a family history of pancreatic cancer in his father, so we will avoid GLP-1 agonist and DPP 4 inhibitors. Greater than 30 minutes spent managing the discharge of this patient. 01/23/2021 No acute events overnight. Patient seen and examined bedside. Improve oxygenation at 93% 6 L nasal cannula. Anticipate discharge within the next 24 hours. Complete 6-minute walk test before discharge. Patient's chart, labs, images were reviewed and discussed with RN 01/22/2021 No acute events overnight. Patient seen and examined bedside. Continues to be on 98% 10 L nasal cannula. Has not required BiPAP overnight. Still complains of the room situation that he is in and is uncomfortable and the room keeps on changing from hot to cold and the nursing staff has not been attending to his needs. I reiterated to him that the hospital is not the best place to be but when we are sick we are just keeping him alive. Also reassured to him that he needs to get the Covid vaccine once he completely is off of oxygen and feels 100%. Patient's chart, labs, images were reviewed and discussed with RN 01/21, his room was moved again, and he is alittle disoriented today he still does not seem to grasp the gravity of the situation that this virus and hypoxia almost killed him, he was surprised when I mentioned that. still hypoxic, on 10 liters, sats are higher than yesterday, will try to wean blood sugars much better, on increased meal dose insulin 01/20/2021 Patient seen and examined now out of the ICU on 10 liters NC now, breathing easier than yesterdya some good improvment will increase his meal time insulin, to 9 u, blood sugars alittle hihg, will check labs tommorrow Chart reviewed He is slowly improving but still very ill, was in ICU 8 days Patient is a 40-year-old male without any reported past medical history presented to the emergency room today from urgent care where he was found to have an oxygen saturation of 76% on room air there. Patient went to urgent care because over the past week he had been having a cough, overall fatigue and wea kness, dyspnea with exertion, intermittent chest pain, fevers, decreased p.o. intake. Patient denied any sick contacts. He is not a smoker. He did not receive the Covid vaccine. Upon arrival to the emergency room he was placed on 6 L of oxygen and satur ations increased to 82%. Nonrebreather was tried however this did not really increase his oxygen saturations and by the time I went to evaluate him he was on continuous BiPAP with saturations in the low 90s. Patient admitting to ICU due to concern for respiratory status given Covid infection and possible need for mechanical ventilation. When evaluated in the emergency room patient was able to gesture that he was feeling somewhat better however was still having shortness of breath and cough. He was also reporting headache. Otherwise no major complaints. Vitals/I&O Vitals/I&O: Vital Signs Date Time Temp Pulse Resp B/P (MAP) Pulse Ox O2 Delivery O2 Flow Rate FiO2 01/24/21 11:00 97.8 115 18 123/73 (90) 96 Nasal Cannula 4.0 97.8 I & O 01/23/21 01/23/21 01/24/21 15:00 23:00 07:00 Intake Total 360 ml 600 ml 240 ml Output Total 800 ml Balance 360 ml 600 ml -560 ml Physical Exam General: Alert, Oriented X3, Cooperative, No acute distress, Other Heart: Other (Tachycardic) Lungs: Clear Abdomen: No hepatosplenomegaly, No masses Extremities: No clubbing, No cyanosis Skin: No rashes, No breakdown Labs Labs: Laboratory Tests Test 01/23/21 12:15 01/23/21 17:17 01/23/21 21:03 01/24/21 03:41 Glucose (Fingerstick) 196 mg/dL (70-99) 160 mg/dL (70-99) 108 mg/dL (70-99) 159 mg/dL (70-99) Test 01/24/21 07:06 Glucose (Fingerstick) 226 mg/dL (70-99) Assessment and Plan Assessmemt and Plan Problems Medical Problems: (1) Hypoxia Status: Acute (2) Person under investigation for COVID-19 Status: Acute (3) Pneumonia Status: Acute Comment Review of Relevant I have reviewed the following items teresa (where applicable) has been applied. Justifications for Admission Other Justification JAMEL ZAMORANO MD Jan 24, 2021 11:11
--- NOTE | 2021-01-24 12:01 | NUR ---
SW following. Discussed with RN, pt on 4L oxygen - will need a 6 minute walk prior to discharge. COVID-19 positive. RN notified. SW will continue to follow.
[2021-01-24] MEDS ORDERED: EMPA10TA PO (12:24)
--- NOTE | 2021-01-24 12:28 | PDOC3 ---
Discharge Summary Visit Information Date of Admission: Jan 11, 2021 Date of Discharge: Jan 24, 2021 Final Diagnosis Problems Medical Problems: (1) Hypoxia Status: Acute (2) Person under investigation for COVID-19 Status: Acute (3) Pneumonia Status: Acute Brief Hospital Course Allergies Allergies Coded Allergies Type Severity Reaction Last Updated Verified No Known Drug Allergies 01/11/21 No Vital Signs Vital Signs Date Time Temp Pulse Resp B/P (MAP) Pulse Ox O2 Delivery O2 Flow Rate FiO2 01/24/21 11:00 97.8 115 18 123/73 (90) 96 Nasal Cannula 4.0 97.8 Lab Results Laboratory Tests Test 01/22/21 17:00 01/22/21 20:57 01/23/21 08:11 01/23/21 12:15 Glucose (Fingerstick) 176 mg/dL (70-99) 133 mg/dL (70-99) 205 mg/dL (70-99) 196 mg/dL (70-99) Test 01/23/21 17:17 01/23/21 21:03 01/24/21 03:41 01/24/21 07:06 Glucose (Fingerstick) 160 mg/dL (70-99) 108 mg/dL (70-99) 159 mg/dL (70-99) 226 mg/dL (70-99) Test 01/24/21 11:56 Glucose (Fingerstick) 217 mg/dL (70-99) Laboratory Tests Test 01/23/21 17:17 01/23/21 21:03 01/24/21 03:41 01/24/21 07:06 Glucose (Fingerstick) 160 mg/dL (70-99) 108 mg/dL (70-99) 159 mg/dL (70-99) 226 mg/dL (70-99) Test 01/24/21 11:56 Glucose (Fingerstick) 217 mg/dL (70-99) Brief Hospital Course Mr. Hand is a 40 old male who presented with acute respiratory failure with hypoxia, COVID-19 pneumonia. Consultation was placed to pulmonology. He was treated with steroids, prophylactic antibiotics, remdesivir, and supportive care. 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 His oxygen requirement was weaned down, and he was able to be discharged on home O2. Due to family history of pancreatic cancer, will discharge patient on Metformin and Jardiance. Recommended follow-up with his PCP within 5-7 days. Discharge Information Condition at Discharge: Improved Follow Up: Weeks Disposition/Orders: D/C to Home Scheduled Empagliflozin (Jardiance) 10 Mg Tablet, 10 MG PO DAILY08 for DM2, #30 Ref 2 Prescribed by: JAMEL ZAMORANO MD on 01/24/21 1224 Metformin Hcl (Metformin Hcl Er) 500 Mg Tab.er.24h, 500 MG PO DAILYWBKFT for ANTI-DIABETIC, #30 Ref 2 Prescribed by: JAMEL ZAMORANO MD on 01/24/21 1110 Discontinued Medications Info (No Known Medications Prior To Admisstion) Each, 1 EACH 1X for n/a, (Reported) Entered as Reported by: NAZARIO BRITT on 01/11/211747 Last Action: New Order on 01/11/211747 by NAZARIO BRITT Justicifation of Admission Dx: Justifications for Admission: Justification of Admission Dx: Yes JAMEL ZAMORANO MD Jan 24, 2021 12:28
[2021-01-24 15:09] VITALS: BP 127/64
[2021-01-24] MEDS: ENOXAPARIN 40 MG/0.4 ML SYRINGE. SQ SCH (17:37)
--- NOTE | 2021-01-24 19:49 | NUR ---
Discharge Note: MARY HARDING [address] Discharge instructions and discharge home medications reviewed with the patient and a copy given. All questions have been answered and understanding verbalized. The following instructions and handouts were given: Home meds as prescribed. Diabetic diet Home oxygen 1 liter at rest, 3 liters upon exertion COVID precautions, quarantine 14 days after testing positive Follow up with PCP in weeks for continuity of care. Disccharge instructions also discussed with the patient's sister, Luiza ([phone]) Discontinued lines and drains: peripheral IV intact, patient tolerated removal, no complications noted Patient discharged to home with self care on 1 liter O2 via wheelchair at 1935.
== END 2021-01-24 19:35 | disposition home or self-care (01) | DRG 871 ==
LOC: ER 09:10 → ED HOLD 10:27 → 1 WEST ICU 16:58 → 6 SOUTH 01-19 16:40 → 5 NORTH 01-20 12:08
PROVIDERS: ADMIT Student in an Organized Health Care Education/Training Program; ATTEND Student in an Organized Health Care Education/Training Program
PROC: 5A09357 Assistance with Respiratory Ventilation, Less than 24 Consecutive Hours, Continuous Positive Airway Pressure (ICD-10-PCS; principal; 2021-01-11)
PROC: XW033E5 Introduction of Remdesivir Anti-infective into Peripheral Vein, Percutaneous Approach, New Technology Group 5 (ICD-10-PCS; 2021-01-11)
PROC: 5A0935A Assistance with Respiratory Ventilation, Less than 24 Consecutive Hours, High Flow/Velocity Cannula (ICD-10-PCS; 2021-01-19)
DX: A41.89 Other specified sepsis (principal); U07.1 COVID-19; E43 Unspecified severe protein-calorie malnutrition; J80 Acute respiratory distress syndrome; E87.1 Hypo-osmolality and hyponatremia; E10.65 Type 1 diabetes mellitus with hyperglycemia; E86.0 Dehydration; Z80.0 Family history of malignant neoplasm of digestive organs; Z83.3 Family history of diabetes mellitus; Z68.21 Body mass index [BMI] 21.0-21.9, adult; Z79.899 Other long term (current) drug therapy
CPT/HCPCS: 36415; 36600; 71045; 71275; 80048; 80053; 81001; 82805; 82962; 83036; 83605; 83880; 84484; 85007; 85025; 85610; 87040; 93005; 94618; 94660; 94760; 96361; 96365; 96375; J1100; J1650; J1815; J2060; J2270; J2543; J2930; J7030; J7050; Q9967; U0003; U0005; 99291-25; G0378